=== PATIENT | female | born 1985 | race Asian ===

== ENCOUNTER 2020-03-01 12:18 | Outpatient (REF) | payer OTHER, SELFPAY | END 2020-03-01 12:19 | disposition home or self-care (01) | LOC: HO.LAB 12:18 | PROVIDERS: PCP Hospitalist; Visit Provider Internal Medicine | DX: Z20.828 Contact with and (suspected) exposure to other viral communicable diseases (principal) | CPT/HCPCS: 36415; C9803; U0003 ==

== ENCOUNTER 2020-03-09 07:50 | Outpatient (RCR) | payer OTHER, SELFPAY | END 2020-03-23 09:13 | disposition other institution (70) | LOC: HO.PTWFD 07:50 | PROVIDERS: Visit Provider Family Medicine | DX: M25.571 Pain in right ankle and joints of right foot (principal) | CPT/HCPCS: 97110; 97140; 97161 ==

== ENCOUNTER 2021-03-14 14:10 | Outpatient (REF) | payer OTHER, SELFPAY | END 2021-03-14 14:11 | disposition home or self-care (01) | LOC: HO.LNP 14:10 | PROVIDERS: Visit Provider Hospitalist | DX: J06.9 Acute upper respiratory infection, unspecified (principal); Z20.822 Contact with and (suspected) exposure to COVID-19 | CPT/HCPCS: U0003; U0005 ==

== ENCOUNTER 2021-08-08 13:23 | Outpatient (REF) | payer OTHER, SELFPAY ==
[2021-08-08 14:42] LABS: Influenza A PCR NEGATIVE (Negative); Influenza B PCR NEGATIVE (Negative); Resp Syncy Virus RNA Qual PCR NEGATIVE (Negative); SARS COV2 PCR INHOUSE NEGATIVE (Negative)
== END 2021-08-08 13:24 | disposition home or self-care (01) ==
LOC: HO.LNP 13:23
PROVIDERS: Visit Provider Family Medicine
DX: Z20.822 Contact with and (suspected) exposure to COVID-19 (principal); B34.9 Viral infection, unspecified
CPT/HCPCS: 0241U

== ENCOUNTER 2022-10-17 08:58 | Outpatient (AMB) | payer OTHER, SELFPAY ==
--- NOTE | 2022-10-17 09:09 | MHC.OFFWIV ---
Intake Vital Signs 10/17/22 09:10 Height 4 ft 10.5 in Weight 134 lb 6 oz BMI 27.6 BP 112/68 Blood Pressure Location Rt brachial Position Sitting Pulse 66 Pulse Source Pulse Oximeter Pulse Oximetry (%) 99 Oxygen Delivery Method Room Air Intake Visit Reasons: R leg pain Intake Note: Patient is here with right ankle pain for 10 days, with no known injury. Patient Tobacco Use Status: Never used Tobacco Allergies Seasonal Allergies Allergy (Intermediate, Verified 10/17/22 09:14) Congestion Do you need a note to return to daycare/school/sports/work: Yes HPI R leg pain HPI Details 36 y/o female presents with complaints of R ankle pain. She reports hx of R ankle tendonitis and states weather affects this. PFSH Surgical History History of tubal ligation Family History Father Medical history unknown Mother Alive and well Maternal Grandmother Lung cancer Social History Housing: House Patient Tobacco Use Status: Never used Tobacco e-Cigarette/Vaping Use: Never Used service: No 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al status: employed 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al exposures/hazards: No Cognitive needs: No Hearing needs: No Vision needs: No Physical Exam Vital Signs: Last Vital Signs Pulse 66 10/17/22 09:10 BP 112/68 10/17/22 09:10 Pulse Ox 99 10/17/22 09:10 Oxygen Delivery Method Room Air 10/17/22 09:10 BMI result Body Mass Index 27.6 Assessment & Plan Assessment & Plan (1) Right ankle tendonitis: Code(s): M77.51 - Other enthesopathy of right foot and ankle Plan: Relative rest-will give her some time off from work and she can return on Friday Ice/heat and elevation NSAIDs: Start meloxicam Start physical therapy She can return if not improving or if worsens Orders: Orders PT Evaluation and Treatment Today M77.51 - Other enthesopathy of right foot and ankle Medications: New meloxicam 15 mg PO DAILY 30 tabs 2RF 30 days Discontinued ibuprofen Discontinued Reason: Doctor's Order 800 mg PO Q8H PRN 42 tabs 0RF pain 14 days Coding Level of Care Code Est Pt Level 3 (80408) Diagnoses Right ankle tendonitis M77.51
[2022-10-17 09:10] VITALS: BP 112/68; PULSE 66; O2SAT 99; BMI 27.6
== END 2022-10-17 09:58 | disposition home or self-care (01) ==
PROVIDERS: PCP Hospitalist; Visit Provider Family Medicine
DX: M77.51 Other enthesopathy of right foot and ankle (principal)
CPT/HCPCS: 99213

== ENCOUNTER 2023-06-19 08:58 | Outpatient (AMB) | payer OTHER, SELFPAY ==
[2023-06-19 09:05] VITALS: BP 102/58; TEMP 36.9; O2SAT 99; BMI 28.0
--- NOTE | 2023-06-19 09:05 | AM.OFFWIN_ITS ---
Intake Vital Signs 06/19/23 09:05 Height 4 ft 10 in Weight 134 lb BMI 28.0 BP 102/58 L Blood Pressure Location Lt brachial Position Sitting Pulse Source Pulse Oximeter Temp 98.4 F Temp Source Temporal Artery Scan Pulse Oximetry (%) 99 Oxygen Delivery Method Room Air Intake Visit Reasons: headache,vomiting Patient Tobacco Use Status: Never used Tobacco Allergies Seasonal Allergies Allergy (Intermediate, Verified 06/19/23 09:07) Congestion Medication List - Last Reconciled 06/19/23 by Franci Hutson, [facility]- cetirizine (Zyrtec) 10 mg PO DAILY 30 days fluticasone propionate 50 mcg/actuation (Allergy Relief (fluticasone)) 2 sprays intranasal DAILY 1 month meloxicam 15 mg PO DAILY 30 days HPI HPI Comments History of Present Illness Details Here today with c/o GI upset started on Friday with Diarrhea, nonbloody Tried bland diet and felt ok. Yesterday felt quesy. Feels dehydrated d/t poor intake. Decreased urine output Drank electrolyte drinks. Was able to get to work yesterday. On the way, felt like she was going to throw up. She went home. When she got home, she did start vomiting several times. Now having body aches & headache. Nasal congestion, post nasal drip and chest congestion. Denies fever, chills, abd pain, chance of preg. [facility] Surgical History History of tubal ligation Family History Father Medical history unknown Mother Alive and well Maternal Grandmother Lung cancer Social History Housing: House Patient Tobacco Use Status: Never used Tobacco e-Cigarette/Vaping Use: Never Used service: No 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al status: employed 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al exposures/hazards: No Cognitive needs: No Hearing needs: No Vision needs: No Review of Systems Const All systems reviewed & are unremarkable except as noted in HPI and below Physical Exam Vital Signs: Last Vital Signs Temp 98.4 F 06/19/23 09:05 BP 102/58 L 06/19/23 09:05 Pulse Ox 99 06/19/23 09:05 Oxygen Delivery Method Room Air 06/19/23 09:05 BMI result Body Mass Index 28.0 Const Other: Awake alert NAD Sclera and conjunctiva clear bilat TM intact and clear bilat MMM, pharynx WNL RRR LS CTAB Abd soft, nontender, normoactive BS x 4 Assessment & Plan Assessment & Plan (1) Viral gastroenteritis: Comment: Supportive care offered Edu on reasons to seek addl care Code(s): A08.4 - Viral intestinal infection, unspecified Plan: This note is constructed using voice recognition software. While every effort has been made to ensure accuracy in hops farm[employer], still errors may have been included Sometimes, these errors may affect the content or meaning of the given sentence . Medications: New ondansetron HCl 4 mg PO Q8H PRN 15 tabs 0RF nausea and vomiting 3 days Coding Level of Care Code Est Pt Level 3 (99249) Diagnoses Viral gastroenteritis A08.4
== END 2023-06-19 09:34 | disposition home or self-care (01) ==
PROVIDERS: PCP Hospitalist; Visit Provider Nurse Practitioner Family
DX: A08.4 Viral intestinal infection, unspecified (principal)
CPT/HCPCS: 99213

== ENCOUNTER 2023-07-16 08:25 | Outpatient (AMB) | payer OTHER, SELFPAY ==
[2023-07-16 08:49] VITALS: BP 106/67; PULSE 64; RESP 14; TEMP 36.4; O2SAT 99; BMI 27.7
--- NOTE | 2023-07-16 08:49 | A.OFFPC_ITS ---
Vital Signs 07/16/23 08:49 Height 4 ft 10 in Weight 132 lb 6 oz BMI 27.7 BP 106/67 Blood Pressure Location Rt brachial Position Sitting Respiration 14 Pulse 64 Pulse Source Pulse Oximeter Temp 97.5 F Temp Source Temporal Artery Scan Pulse Oximetry (%) 99 Oxygen Delivery Method Room Air Intake Visit Reasons: PAUL from [facility] [employer] Required: No Accompanied by: Self / Same As Patient Allergies Seasonal Allergies Allergy (Intermediate, Verified 07/16/23 09:36) Congestion Medication List - Last Reconciled 07/16/23 by Franci Hutson, [facility] fluticasone propionate 50 mcg/actuation (Allergy Relief (fluticasone)) 2 sprays intranasal DAILY 1 month Tobacco use date assessed: 07/16/23 Dental Screening Dental Screen Date: 07/16/23 Did you have a dental visit in the last 12 months?: No Did you have a dental problem in the last 6 months where you did not have access to dental care?: No Was dental information given to patient?: Patient has dentist HPI HPI Comments History of Present Illness Details 37-year-old female with migraine headach es, obesity, seasonal allergies Status post tubal ligation 2014 Family hx: Denies significant hx in first degree relatives. Social: works for the [employer] overdue, we will schedule. 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 Annual visits. Labs 11/22/2019 normal CBC, ESR, CMP Here today for complete physical exam. Migraines, seem to be food triggered. Avoids this. Last one was yesterday. Uses motrin and execedrin. GERD also food related, also avoids. Uses pepcid OTC with + effect PRN. Seasonal allergies - well controlled with flonase. Skin - no concerns. Looking to continue fostering 2 eldest children half brother, age 15, Abilio. Paperwork for this was completed today in handed back to the patient. COUNTS INCLUDE 234 BEDS AT THE [facility] Medical History Right ankle tendonitis Back pain Cervicalgia Surgical History History of tubal ligation Family History Father Medical history unknown Mother Alive and well Maternal Grandmother Lung cancer Social History (Updated 07/16/23 @ 08:57 by DORINDA Murcia) Household Members: Family Housing: House Are you a primary care partner to a significant other at home: No Do you presently have visiting nurse or other home services: No Alcohol intake: current Alcohol intake frequency: holidays/special occasions only Alcohol type: hard liquor Patient Tobacco Use Status: Never used Tobacco e-Cigarette/Vaping Use: Never Used service: No 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al status: employed 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: [employer] 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al exposures/hazards: No Cognitive needs: No Hearing needs: No Vision needs: No Questionnaire PHQ-9 Over the last 2 weeks, how often have you been bothered by any of the following problems? 1. Little interest or pleasure in doing things: not at all 2. Feeling down, depressed, or hopeless: not at all 3. Trouble falling or staying asleep, or sleeping too much: not at all 4. Feeling tired or having little energy: not at all 5. Poor appetite or overeating: not at all 6. Feeling bad about yourself - or that you are a failure or have let yourself or your family down: not at all 7. Trouble concentrating on things, such as reading the newspaper or watching television: not at all 8. Moving or speaking so slowly that other people could have noticed. Or the opposite - being so fidgety or restless that you have been moving around a lot more than usual: not at all 9. Thoughts that you would be better off or of hurting yourself in some way: not at all Total score: 0 Depression Screening Interpretation: Negative Depression Screening Done: Yes 40977 - PHQ-9 Billing: Yes Source: Developed by Drs. Fernando Blackmon, Rosalina Galvan, Maurizio Gramajo and colleagues, with an educational alexandru from [employer]. Thrive Questionnaire Date Thrive assessed: 07/16/23 I am a: Patient What is your living situation today?: I have a steady place to live Within the past 12 months, did the food you bought not last and you didn't have the money to get more?: Never true Within the past 12 months, did you worry whether your food would run out before you got money to buy more?: Never true Do you have trouble paying for medicines?: No Do you have trouble getting transportation to medical appointments?: No Do you have trouble paying your heating and electricity bill?: No Do you have trouble taking care of your child, family member or friend?: No Do you have trouble with day-to-day activities such as bathing, preparing meals, shopping, managing finances, etc.?: No Are you currently unemployed and looking for a job?: No Are you interested in more education?: No Please select the resources that you would like help with: None Currently or been in a relationship where the following occur: no concerns reported THRIVE Score: 0 AUDIT C Alcohol Use Questionnaire (AUDIT-C) 1. How often do you have a drink containing alcohol?: Monthly or less 2. How many drinks containing alcohol do you have on a typical day when you are drinking?: 1 or 2 3. How often do you have six or more drinks on one occasion?: Never Total Score: 1 Score Reviewed/Action Taken: Yes AMBROSIO-7 AMB Questionnaire AMBROSIO-7 Date AMBROSIO - 7 assessed: 07/16/23 Feeling nervous, anxious, or on edge: 0 = Not at all Not being able to stop or control worryin = Not at all Worrying too much about different things: 0 = Not at all Trouble relaxin = Not at all Being so restless that it is hard to sit still: 0 = Not at all Becoming easily annoyed or irritable: 0 = Not at all Feeling afraid as if something awful might happen: 0 = Not at all Total AMBROSIO-7 score (0-4 normal; 5-9 mild; 10-14 moderate; 15-21 severe): 0 Source: Developed by Drs. Fernando Blackmon, Rosalina Galvan, Maurizio Gramajo and colleagues, with an educational alexandru from [employer]. AMBROSIO-7 Assessment Billing AMBROSIO-7 Assessment Tool: AMBROSIO-7 Assessment 98152 Review of Systems Const Details: Constitutional: Denies fever. Skin: Denies rash. Eye: Denies eye pain. ENMT: Denies sore throat and nasal congestion. Respiratory: Denies shortness of breath and cough. Gastrointestinal: Denies nausea, vomiting or abdominal pain. Cardiovascular: Denies chest pain and syncope. Genitourinary: Denies dysuria. Musculoskeletal: Denies back pain and extremity pain. Neurologic: Denies headaches, confusion, and weakness. Psychiatric: Denies suicidal thoughts and substance abuse. Allergy/ Immunologic: Denies impaired immunity. Physical exam (Primary Care) Vital Signs: Last Vital Signs Temp 97.5 F 07/16/23 08:49 Pulse 64 07/16/23 08:49 Resp 14 07/16/23 08:49 BP 106/67 07/16/23 08:49 Pulse Ox 99 07/16/23 08:49 Oxygen Delivery Method Room Air 07/16/23 08:49 BMI result Body Mass Index 27.7 BMI Assessment/Plan discussion: High BMI High, discussed plan: lifestyle Tobacco/Smoking Status: Tobacco use Status Tobacco use date assessed 07/16/23 07/16/23 08:58 Patient Tobacco Use Status Never used Tobacco 07/16/23 08:58 e-Cigarette/Vaping Use Never Used 07/16/23 08:58 PHQ-9: PHQ-9 Score PHQ-9: Total score 0 07/16/23 08:58 Depression Screening Interpretation: Negative Thrive Assessment: Date of Thrive Assessment Date Thrive assessed 07/16/23 07/16/23 08:58 Currently or been in a relationship where the following occur: no concerns reported Advance Care Planning discussion: Exists, not on file Date of discussion: 07/16/23 Who was present: Self Forms completed: Health Care Proxy and [facility]OL[facility] Time spent: 1-15 minutes, not on file Actual minutes spent: 3 Const Other: General: Well developed, well nourished, in no acute distress. Appears stated age. Head: Normocephalic, atraumatic. Eyes: Pupils are equal, round and reactive to light and accommodation. Conjunctivae are clear. Vision grossly normal. Ears: TMs clear AU, EACS WNL Nose: Patent, without discharge. Mouth: There are no ulcers or lesions noted. No inflammation, no post nasal drip, no plaques nor exudates. Neck: Supple, no adenopathy or thyromegaly. Lungs: Clear to auscultation bilaterally. No rales, rhonchi or wheeze noted. Good air flow in all pandey. Heart: Regular rate and rhythm. No murmurs, click, rubs or gallops are noted. Abdomen: Bowel sounds present in all quadrants. The abdomen is soft, nontender, with no masses or organomegaly noted. No hernias are noted. Musculoskeletal: Joints are nontender, without swelling, redness, or effusions. Range of motion is observed to be normal. Pulses: Peripheral pulses are equal and palpable bilaterally. Extremities: No clubbing, cyanosis nor edema is noted. Neurologic: Gait and station normal. Cranial Nerves 2-12 intact. Motor strength grossly symmetrical and intact. No sensory loss. Balance normal. Skin: No rashes, ulcers, or lesions noted. Turgor is good. Skin color is good. Hair and nails are without abnormalities. Psych: Normal eye contact, affect and mood appropriate, and normal interactions. Patient is alert and appropriate to context. Extremities: No clubbing, cyanosis or edema. Assessment and Plan Assessment & Plan (1) Encounter for general adult medical examination without abnormal findings: Code(s): Z00.00 - Encounter for general adult medical examination without abnormal findings (2) Laboratory exam ordered as part of routine general medical examination: Code(s): Z00.00 - Encounter for general adult medical examination without abnormal findings (3) Migraine: Comment: We will controlled with use of ibuprofen 800 mg and Excedrin migraine. Continue to avoid triggers. Code(s): G43.909 - Migraine, unspecified, not intractable, without status migrainosus Qualifiers: Migraine type: without aura Status migrainosus presence: without status migrainosus Intractability: not intractable Qualified Code(s): G43.009 - Migraine without aura, not intractable, without status migrainosus (4) BMI 27.0-27.9,adult: Code(s): Z68.27 - Body mass index [BMI] 27.0-27.9, adult (5) Seasonal allergies: Comment: Well controlled with Flonase continue. Code(s): J30.2 - Other seasonal allergic rhinitis (6) GERD (gastroesophageal reflux disease): Comment: Well controlled with p.r.n. use of [id number] Pepcid. Continue avoid food triggers. Code(s): K21.9 - Gastro-esophageal reflux disease without esophagitis Qualifiers: Esophagitis presence: without esophagitis Qualified Code(s): K21.9 - Gastro-esophageal reflux disease without esophagitis Orders: Orders Complete Blood Count no Diff Today Z00.00 - Encounter for general adult medical examination without abnormal findings Hemoglobin A1c Today Z00.00 - Encounter for general adult medical examination without abnormal findings IRON PROFILE Today Z00.00 - Encounter for general adult medical examination without abnormal findings TSH reflex Free T4 Today Z00.00 - Encounter for general adult medical examination without abnormal findings Comprehensive Gipsy. Panel Fast Today Z00.00 - Encounter for general adult medical examination without abnormal findings Lipid Panel Today Z00.00 - Encounter for general adult medical examination without abnormal findings Microalbumin, Random (w Creat) Today Z00.00 - Encounter for general adult medical examination without abnormal findings Vitamin D 1,25 dihydroxy Today Z00.00 - Encounter for general adult medical examination without abnormal findings Vitamin B12 Today Z00.00 - Encounter for general adult medical examination without abnormal findings Medications: New ibuprofen 800 mg PO Q8H PRN 30 tabs 1RF pain Patient Instructions: Return to the office in 1 year for complete physical exam, sooner as needed. Health screenings for women You should visit your health care provider from time to time, even if you are healthy. The purpose of these visits is to: Screen for medical issues Assess your risk for future medical problems Encourage a healthy lifestyle Update vaccinations and other preventive care services Help you get to know your provider in case of an illness Information Even if you feel fine, you should still see your provider for regular checkups. These visits can help you avoid problems in the future. For example, the only way to find out if you have high blood pressure is to have it checked regularly. High blood sugar and high cholesterol levels also may not have any symptoms in the early stages. A simple blood test can check for these conditions. There are specific times when you should see your provider or receive specific health screenings. The [place] Preventive Services Task Force publishes a list of recommended screenings. Below are screening guidelines for women ages 18 to 39. BLOOD PRESSURE SCREENING Your blood pressure should be checked at least once every 3 to 5 years if: Your blood pressure is in the normal range (top number less than 120 mm Hg and bottom number less than 80 mm Hg) You don't have risk factors for high blood pressure Ask your provider if you need your blood pressure checked more often if: The top number is 120 to 129 mm Hg or the bottom number is 70 to 79 mm Hg You have diabetes, heart disease, kidney problems, are overweight, or have certain other health conditions You have a first-degree relative with high blood pressure You are Black You had high blood pressure during a If the top number is 130 mm Hg or greater or the bottom number is 80 mm Hg or greater, this is considered stage 1 hypertension. Schedule an appointment with your provider to learn how you can reduce your blood pressure. Watch for blood pressure screenings in your area. Ask your provider if you can stop in to have your blood pressure checked. BREAST CANCER SCREENING Experts do not agree about the benefits of breast self-exams in finding breast cancer or saving lives. Talk to your provider about what is best for you. A screening mammogram is not recommended for most women under age 40. Your provider may discuss and recommend mammograms, MRI scans, or ultrasounds if you have an increased risk for breast cancer, such as: A mother or sister who had breast cancer at a young age (most often starting screening earlier than the age the close relative was diagnosed) You carry a high-risk genetic marker CERVICAL CANCER SCREENING Cervical cancer screening should start at age 21 years unless your provider advises otherwise. After the first test: Women ages 21 through 29 should have a Pap test every 3 years. Exoprts do not agree on whether HPV testing is recommended for this age group. Women ages 30 through 65 should be screened with either a Pap test every 3 years or the HPV test every 5 years or both tests every 5 years (called cotesting ). Women who have been treated for precancer (cervical dysplasia) should continue to have Pap tests for 20 years after treatment or until age 65, whichever is longer. If you have had your uterus and cervix removed (total hysterectomy), and you have not been diagnosed with cervical cancer or precancer (high grade cervical neoplasia), you do not need cervical cancer screening. CHOLESTEROL SCREENING Cholesterol screening should begin at: Age 45 for women with no known risk factors for coronary heart disease Age 20 for women with known risk factors for coronary heart disease Repeat cholesterol screening should take place: Every 5 years for women with normal cholesterol levels More often if changes occur in lifestyle (including weight gain and diet) More often if you have diabetes, heart disease, kidney problems, or certain other conditions DIABETES SCREENING You should be screened for diabetes starting at age 35 and then repeated every 3 years if you have no risk factors for diabetes. Screening may need to start earlier and be repeated more often if you have other risk factors for diabetes, such as: You have a first degree relative with diabetes. You are overweight or have obesity. You have high blood pressure, prediabetes, or a history of heart disease. Screening for diabetes should be done if you are planning to become and you are overweight and have other risk factors such as high blood pressure. DENTAL EXAM Go to the dentist once or twice every year for an exam and cleaning. Your dentist will evaluate if you need more frequent visits. EYE EXAM Have an eye exam every 5 to 10 years before age 40. If you have vision problems, have an eye exam every 2 years or more often if recommended by your provider. You should have an eye exam that includes an examination of your retina (back of your eye) at least every year if you have diabetes. IMMUNIZATIONS Commonly needed vaccines include: Flu shot: get one every year. COVID-19 vaccine: ask your provider what is best for you. Tetanus-diphtheria and acellular pertussis (Tdap) vaccine: have one at or after age 19 as one of your tetanus-diphtheria vaccines if you did not receive it as an adolescent. Tetanus-diphtheria: have a booster (or Tdap) every 10 years. Varicella vaccine: receive 2 doses if you never had chickenpox or the varicella vaccine. Hepatitis B vaccine: receive 2, 3, or 4 doses, depending on your exact circumstances. Measles, mumps, and rubella (MMR) vaccine: receive 1 to 2 doses if you are not already immune to MMR. Your provider can tell you if you are immune. Ask your provider about the human papillomavirus (HPV) vaccine if: You have not received the HPV vaccine in the past You have not completed the full vaccine series (you should catch up on this shot) Ask your provider if you should receive other immunizations if you have certain health problems that increase your risk for some diseases such as pneumonia. INFECTIOUS DISEASE SCREENING Women who are sexually active should be screened for chlamydia and gonorrhea up until age 25. Women 25 years and older should be screened for chlamydia and gonorrhea if at high risk. Screening for hepatitis C: All adults ages 18 to 79 should get a one-time test for hepatitis C. people should be screened at every . Screening for human immunodeficiency virus (HIV): All people ages 15 to 65 should get a one-time test for HIV. Depending on your lifestyle and medical history, you may also need to be screened for infections such as syphilis and HIV, as well as other infections. PHYSICAL EXAM All adults should visit their provider from time to time, even if they are healthy. The purpose of these visits is to: Screen for disease Assess your risk of future medical problems Encourage a healthy lifestyle Update your vaccinations and other preventive care services Maintain a relationship with a provider in case of an illness Your height, weight, and BMI should be checked at every exam. During your exam, your provider may ask you about: Depression and anxiety Diet and exercise Alcohol and tobacco use Safety issues, such as using seat belts, smoke detectors, and intimate partner violence Your medicines and risk for interactions SKIN SELF-EXAM Your provider may check your skin for signs of skin cancer, especially if you're at high risk, such as if you: Have had skin cancer before Have close relatives with skin cancer Have a weakened immune system OTHER SCREENING Talk with your provider about colon cancer screening if you have a strong family history of colon cancer or polyps, or if you have had inflammatory bowel disease or polyps yourself. Routine bone density screening of women under 40 is not recommended. Coding Level of Care Code Est Pt Prev Care 18-39y(90881) Diagnoses Encounter for general adult medical examination without abnormal findings Z00.00 Laboratory exam ordered as part of routine general medical examination Z00.00 Migraine without aura and without status migrainosus, not intractable G43.009 Migraine type: without aura Status migrainosus presence: without status migrainosus Intractability: not intractable BMI 27.0-27.9,adult Z68.27 Seasonal allergies J30.2 Gastroesophageal reflux disease without esophagitis K21.9 Esophagitis presence: without esophagitis Additional Codes AMBROSIO-7 Assessment Billing - AMBROSIO-7 Assessment Tool: AMBROSIO-7 Assessment 04128 ([id number]) Vital Signs *Quality* - Advance Care Planning discussion: Exists, not on file ([id number]) Vital Signs *Quality* - Time spent: 1-15 minutes, not on file ([id number])
== END 2023-07-16 10:07 | disposition home or self-care (01) ==
PROVIDERS: PCP Hospitalist; Visit Provider Nurse Practitioner Family
DX: Z00.00 Encounter for general adult medical examination without abnormal findings (principal); G43.009 Migraine without aura, not intractable, without status migrainosus; Z68.27 Body mass index [BMI] 27.0-27.9, adult; J30.2 Other seasonal allergic rhinitis; K21.9 Gastro-esophageal reflux disease without esophagitis
CPT/HCPCS: 1123F; 1124F; 99395

== ENCOUNTER 2023-07-16 09:53 | Outpatient (REF) | payer OTHER, SELFPAY ==
[2023-07-16 11:24] LABS: Hematocrit 42.3 % (37.0-47.0); Mean Corpuscular HGB Conc 33.1 g/dl (31.0-35.0); Mean Corpuscular Hemoglobin 29.3 pg (27.0-33.0); Mean Corpuscular Volume 88.5 fL (80.0-98.0); Mean Platelet Volume 11.3 fL (9.4-12.3); Platelet Count 295 X10*3/uL (160-400); Red Blood Count 4.78 X10*6/uL (4.20-5.50); Red Cell Distribution Width 13.1 % (11.0-16.0); White Blood Count 6.6 X10*3/uL (4.8-10.8)
[2023-07-16 11:29] LABS: Estimated Average Glucose 94 mg/dL; Hemoglobin A1c % 4.9 % (<6.0)
[2023-07-16 11:41] LABS: Microalbum/Creatinine Ratio Ur 2.9 ug/mg cr (<30)
[2023-07-16 11:43] LABS: Alanine Aminotransferase 19 U/L (0-31); Albumin Level 4.4 g/dL (3.5-5.0); Alkaline Phosphatase 63 U/L (39-117); Anion Gap 12 (12-20); Aspartate Amino Transferase 18 U/L (5-31); Bilirubin Total 0.6 mg/dL (0.0-1.0); Blood Urea Nitrogen 11 mg/dL (9-16); Calcium 9.4 mg/dL (8.4-10.2); Carbon Dioxide 22 mmol/L (22-29); Chloride 108 mmol/L (96-108); Cholesterol 178 mg/dL (<200); Estimated Glomerular Filt Rate > 60; Glucose Fasting 80 mg/dL (60-99); HDL Cholesterol 54 mg/dL (>40); Iron 123 mcg/dL (30-160); LDL Cholesterol Calculated 103 mg/dL (<100); Percent Iron Saturation 41 % (15-50); Potassium 3.9 mmol/L (3.3-5.1); Sodium 138 mmol/L (135-145); Total Iron Binding Capacity 298 mcg/dL (228-428); Total Protein 7.3 g/dL (6.5-8.0); Triglycerides 106 mg/dL (<150); Unsaturated Iron Binding 175 ug/dL
[2023-07-16 11:55] LABS: Vitamin B12 516 pg/mL (200-900)
[2023-07-16 12:03] LABS: TSH reflex Free T4 1.46 uIU/mL (0.32-4.0)
[2023-07-20 06:13] LABS: VITAMIN D (1,25 OH) D3 24 pg/mL; Vit D (1,25-Dihydroxy) Total 24 pg/mL (18-72); Vitamin D (1,25 OH) D2 <8 pg/mL
== END 2023-07-16 09:54 | disposition home or self-care (01) ==
LOC: HO.WFDLDS 09:53
PROVIDERS: Visit Provider Nurse Practitioner Family
DX: Z00.00 Encounter for general adult medical examination without abnormal findings (principal)
CPT/HCPCS: 36415; 80053; 80061; 82043; 82570; 82607; 82652; 83036; 83540; 84443; 85027

== ENCOUNTER 2023-08-22 11:56 | Outpatient (AMB) | payer OTHER, SELFPAY ==
--- NOTE | 2023-08-22 12:03 | AM.OFFWIN_ITS ---
Intake Vital Signs 08/22/23 12:07 Height 4 ft 10 in Weight 135 lb BMI 28.2 BP 102/68 Blood Pressure Location Lt brachial Position Sitting Respiration 12 Pulse 65 Pulse Source Pulse Oximeter Temp 98.4 F Temp Source Oral Pulse Oximetry (%) 98 Oxygen Delivery Method Room Air Intake Visit Reasons: est/ swollen finger left ring finger Intake Note: Swollen left ring finger Patient Tobacco Use Status: Never used Tobacco Allergies Seasonal Allergies Allergy (Intermediate, Verified 08/22/23 12:14) Congestion Medication List - Last Reconciled 08/22/23 by Franci Hutson, [facility] fluticasone propionate 50 mcg/actuation (Allergy Relief (fluticasone)) 2 sprays intranasal DAILY 1 month ibuprofen 800 mg PO Q8H PRN Do you need a note to return to daycare/school/sports/work: Yes Return to daycare/school/sports/work/other note: work HPI HPI Comments History of Present Illness Details Here today w/ swelling of left ring finger assoc w/ pain initially w/o overt or known injury this started yesterday the pain has resolved and now she just has the swelling and discoloration reports normal sensation and movement she did have a hard time removing wedding ring initially and now has remained with it off given the swelling this has never happened before Exam: Left ring finger with mild swelling, dark purple/yellow discoloration, palmar surface and finger tip spared, normal cap refill, normal movement, skin intact, not excessively warm to suggest infection Plan: reassurance. if fever, redness, worsening swelling, discoloration, or overall worsening advised to return to office. [facility] Medical History Right ankle tendonitis Back pain Cervicalgia Surgical History History of tubal ligation Family History Father Medical history unknown Mother Alive and well Maternal Grandmother Lung cancer Social History (Updated 07/16/23 @ 08:57 by DORINDA Murcia) Household Members: Family Both parents involved: No Caregiver staying overnight: No Housing: House Are you a primary md do resident urgent care to a significant other at home: No Do you presently have visiting nurse or other home services: No 75 years or older and lives alone: No Alcohol intake: current Alcohol intake frequency: holidays/special occasions only Alcohol type: hard liquor Patient Tobacco Use Status: Never used Tobacco e-Cigarette/Vaping Use: Never Used service: No 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al status: employed 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: [employer] 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al exposures/hazards: No Cognitive needs: No Hearing needs: No Vision needs: No Physical Exam Vital Signs: Last Vital Signs Temp 98.4 F 08/22/23 12:07 Pulse 65 08/22/23 12:07 Resp 12 08/22/23 12:07 BP 102/68 08/22/23 12:07 Pulse Ox 98 08/22/23 12:07 Oxygen Delivery Method Room Air 08/22/23 12:07 BMI result Body Mass Index 28.2 Assessment & Plan Assessment & Plan (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 Coding Level of Care Code Est Pt Level 3 (55557) Diagnoses Achenbach's syndrome M79.81
[2023-08-22 12:07] VITALS: BP 102/68; PULSE 65; RESP 12; TEMP 36.9; O2SAT 98; BMI 28.2
== END 2023-08-22 12:30 | disposition home or self-care (01) ==
PROVIDERS: PCP Nurse Practitioner Family; Visit Provider Nurse Practitioner Family
DX: M79.81 Nontraumatic hematoma of soft tissue (principal)
CPT/HCPCS: 99213

== ENCOUNTER → 2023-12-10 10:39 | Outpatient (BNVA) | payer OTHER, SELFPAY | PROVIDERS: PCP Nurse Practitioner Family ==

== ENCOUNTER → 2023-12-10 10:39 | Outpatient (AMB) | payer OTHER, SELFPAY ==
--- NOTE | 2023-12-10 10:45 | AM.OFFWIN_ITS ---
Intake Vital Signs 12/10/23 10:46 Height 4 ft 10 in Weight 134 lb BMI 28.0 BP 104/58 L Blood Pressure Location Rt brachial Pulse 78 Pulse Source Pulse Oximeter Temp 98.1 F Temp Source Oral Pulse Oximetry (%) 98 Oxygen Delivery Method Room Air Intake Visit Reasons: est/bad cough/throat pain Patient Tobacco Use Status: Never used Tobacco Allergies Seasonal Allergies Allergy (Intermediate, Verified 12/10/23 10:48) Congestion Medication List - Last Reconciled 12/10/23 by Franci Hutson, NICKER- cetirizine (Zyrtec) 10 mg PO DAILY PRN fluticasone propionate 50 mcg/actuation (Allergy Relief (fluticasone)) 2 sprays intranasal DAILY 1 month ibuprofen 800 mg PO Q8H PRN HPI HPI Comments History of Present Illness Details 38-year-old female with migraine headach es, obesity, seasonal allergies Here today with URI sx that started sx: cough, bodyaches. Cough worse at night. Coughing so hard tastes blood; hoarse voice On Friday, took amox she had on hand for dental procedure for L ear pain Admits mild improvement in sx. Tried ibuprofen w/o relief, aleve did help body aches; has tried several otc cough suppressants w/o relief. Went to walk in no Friday, covid, flu, strep negative. Exam: Awake alert NAD Sclera and conjunctiva clear bilat Nares patent, turbinates within normal limits, no sinus tenderness with palpation bilat TM clear on L, cerumen EAC on L unable to see TM MMM, pharynx WNL RRR LS CTAB, congested cough w/o distress Plan Treat cough. Supportive care. Advised to return to the office if she develops a fever, worsening of symptoms or no improvement after 10 days. This note is constructed using voice recognition software. While every effort has been made to ensure accuracy in amusement park worker, still errors may have been included Sometimes, these errors may affect the content or meaning of the given sentence . Total time spent caring for the patient today was 30 minutes. This includes time spent before the visit reviewing the chart, time spent during the visit, and time spent after the visit on documentation [facility] Medical History Right ankle tendonitis Back pain Cervicalgia Surgical History History of tubal ligation Family History Father Medical history unknown Mother Alive and well Maternal Grandmother Lung cancer Social History (Updated 07/16/23 @ 08:57 by DORINDA Murcia) Household Members: Family Both parents involved: No Caregiver staying overnight: No Housing: House Are you a primary adult caregiver to a significant other at home: No Do you presently have visiting nurse or other home services: No 75 years or older and lives alone: No Alcohol intake: current Alcohol intake frequency: holidays/special occasions only Alcohol type: hard liquor Patient Tobacco Use Status: Never used Tobacco e-Cigarette/Vaping Use: Never Used service: No 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al status: employed 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 Plan . Medications: New benzonatate 100 mg PO TID 10 days PRN 30 caps 1RF cough codeine-guaifenesin 10-200 mg/5 mL 10 mL PO BEDTIME PRN 70 mL 0RF cough Refilled fluticasone propionate 50 mcg/actuation (Allergy Relief (fluticasone)) administer into each nostril 2 sprays intranasal DAILY 1 month 16 grams 4RF J30.2 - Other seasonal allergic rhinitis Coding Level of Care Code Est Pt Level 4 (77586) Diagnoses URI with cough and congestion J06.9
[2023-12-10 10:46] VITALS: BP 104/58; PULSE 78; TEMP 36.7; O2SAT 98; BMI 28.0
== END ==
PROVIDERS: PCP Nurse Practitioner Family; Visit Provider Nurse Practitioner Family
DX: J06.9 Acute upper respiratory infection, unspecified (principal)

== ENCOUNTER 2023-12-29 09:18 | Outpatient (REF) | payer OTHER, SELFPAY ==
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
== END 2023-12-29 09:19 | disposition home or self-care (01) ==
LOC: HO.HMGCX 09:18
PROVIDERS: PCP Nurse Practitioner Family; Visit Provider Nurse Practitioner Family
DX: M54.50 Low back pain, unspecified (principal); M54.2 Cervicalgia; R20.2 Paresthesia of skin; M25.552 Pain in left hip; V89.2XXA Person injured in unspecified motor-vehicle accident, traffic, initial encounter
CPT/HCPCS: 72040; 72100; 73030; 73521

== ENCOUNTER 2023-12-29 09:18 | Outpatient (AMB) | payer OTHER, SELFPAY ==
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
[2023-12-29 09:37] VITALS: BP 98/68; PULSE 78; RESP 12; TEMP 36.6; O2SAT 99; BMI 28.5
== END 2023-12-29 10:13 | disposition home or self-care (01) ==
PROVIDERS: PCP Nurse Practitioner Family; Visit Provider Nurse Practitioner Family
DX: M54.2 Cervicalgia (principal); V89.2XXA Person injured in unspecified motor-vehicle accident, traffic, initial encounter; Z04.3 Encounter for examination and observation following other accident; M54.50 Low back pain, unspecified; R20.2 Paresthesia of skin; M25.552 Pain in left hip

== ENCOUNTER 2024-01-14 10:00 | Outpatient (AMB) | payer OTHER, SELFPAY ==
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
[2024-01-14 10:28] VITALS: BP 102/60; PULSE 70; O2SAT 99; BMI 28.7
== END 2024-01-14 13:55 | disposition home or self-care (01) ==
PROVIDERS: PCP Nurse Practitioner Family; Visit Provider Nurse Practitioner Family
DX: M54.2 Cervicalgia (principal); M54.50 Low back pain, unspecified; V89.2XXA Person injured in unspecified motor-vehicle accident, traffic, initial encounter; R20.2 Paresthesia of skin

== ENCOUNTER → 2024-01-14 10:00 | Outpatient (BNVA) | payer OTHER, SELFPAY | PROVIDERS: PCP Nurse Practitioner Family; Visit Provider Nurse Practitioner Family ==

== ENCOUNTER → 2024-03-24 09:44 | Outpatient (AMB) | payer OTHER, SELFPAY ==
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
[2024-03-24 09:49] VITALS: BP 101/70; PULSE 53; RESP 12; TEMP 36.2; O2SAT 99; BMI 29.0
--- OUTSIDE RECORDS SUMMARY | 2024-03-24 11:23 | XMS_ITS | Encounter Summary ---
Author Organization [employer] Address [address] [place] [address] Care Team Providers Care Strip Feeder Name Role Phone Unavailable Primary Care Provider Unavailabl e Encounter Details Date Type Department Care Team (Late st Contact Info) Description 02/23/2024 Telephone [facility] ADULT DENTAL [address], [place] [id number] Greg Araiza [address] [place] [address] Social History Tobacco Use Types Packs/Day Years Used Date Smoking Tobacco: Never Passive Smoke Exposure: Never Smokeless Tobacco: Never Comments Unknown Sex and Gender Information Value Date Recorded Sex Assigned at Female 12/24/2021 10:18 AM EDT Legal Sex Female 10:18 AM EDT Gender Identity Female 12/24/2021 10:18 AM EDT Sexual Orientation Straight 12/24/2021 10 :18 AM EDT documented as of this encounter Miscellaneous Notes * Telephone Encounter - Albina Burrell - 02/23/2024 9:49 AM EST LVM is patient is still interested in continue treatment for RCT documented in this encounter Plan of Treatment Not on file documented as of this encounter Visit Diagnoses Not on filedocumented in this encounter
--- OUTSIDE RECORDS SUMMARY | 2024-03-24 11:23 | XMS_ITS | Encounter Summary ---
Author Organization [employer] [facility] Address [address] [place] [address] Care Team Providers Care Metal Crafts Teacher Name Role Phone Unavailable Primary Care Provider Unavailabl e Encounter Details Date Type Department Care Team (Latest Contact Info) Description 05/01/2018 Abstract C CONVERSIONS Dental, Provider, DDS Social History Tobacco Use Types Packs/Day Years Used Date Smoking Tobacco: Never Assessed Comments Unknown Sex and Gender Information Value Date Recorded Sex Assigned at Female 12/24/2021 10:18 AM EDT Legal Sex Female 10:18 AM EDT Gender Identity Female 12/24/2021 10:18 AM EDT Sexual Orientation Straight 12/24/2021 10 :18 AM EDT documented as of this encounter Plan of Treatment Not on file documented as of this encounter Visit Diagnoses Not on filedocumented in this encounter
--- OUTSIDE RECORDS SUMMARY | 2024-03-24 11:23 | XMS_ITS | Clinical Summary ---
Author Organization [email or web address] Address [address] [place] [address] Care Team Providers Care Hospice Home Health Aide Name Role Phone Unavailable Primary Care Provider Unavailabl e Allergies No known active allergies Medications fluticasone (Flonase) 50 MCG/ACT nasal spray USE 1 SPRAY IN EACH NOSTRILS TWICE A DAY NEEDED Active ibuprofen 800 MG tablet 10/03/2023 Active Encounters Date Type Department Care Team Description 03/23/2024 Telephone [facility] ADULT DENTAL [address] [place] [address] Go Roth 02/23/2024 Telephone [facility] ADULT DENTAL [address] [place] [address] Greg Araiza from Last 3 Months Immunizations Name Administration Dates Next Due Pfizer Covid-19 Vaccine 12+ Bivalent 04/19/2022 Social History Tobacco Use Types Packs/Day Years Used Date Smoking Tobacco: Never Passive Smoke Exposure: Never Smokeless Tobacco: Never Tobacco Cessation:Counseling Given: Not Answered Comments Unknown Sex and Gender Information Value Date Recorded Sex Assigned at Female 12/24/2021 10:18 AM EDT Legal Sex Female 10:18 AM EDT Gender Identity Female 12/24/2021 10:18 AM EDT Sexual Orientation Straight 12/24/2021 10 :18 AM EDT Last Filed Vital Signs Vital Sign Reading Time Taken Comments Blood Pressure 122/64 10/06/2023 10:05 AM EDT Pulse 65 10/06/2023 10:05 AM EDT Temperature - - Respiratory Rate - - Oxygen Saturation - - Inhaled Oxygen Concentration - - Weight - - Height - - Body Mass Index - - Plan of Treatment Health Maintenance Due Date Last Done Comments Depression Screening 1985 HIV Screening 1985 SDOH Screening 1985 Alcohol/Substance Use Screening 1997 Family Planning (PISQ) 2000 Hepatitis C Screening 11/22/2003 Hepatitis B Vaccines (1 of 3 - 19+ 3-dose series) 2004 Pap Smear 2006 Cervical Cancer Screening 11/22/2015 HPV/Cotest 11/22/2015 COVID-19 Vaccine (2 - 2023-2 5 season) 2023 04/19/2022 Influenza Vaccine (#1) 2023 Dental Oral Exam 04/08/2024 10/06/2023, 05/01/2018 Dental Prophylaxis 04/08/2024 10/06/2023, 05/01/2018 Tobacco Screening 10/05/2024 10/06/2023 Dental X-Ray: Bitewings 10/06/2024 10/06/19 24, 05/15/2021, 05/01/2018 Dental X-Ray: Full Mouth 10/06/2026 024, 05/01/2018 DTaP/Tdap/Td Vaccines (3 - T d or Tdap) 05/17/2027 05/16/2017, 02/07/2015 Zoster Vaccines (1 of 2) 11/22/2035 RSV Patients and Patients Aged 60 years or older (1 - 1-dose 75+ series) 2060 HIB Vaccines Aged Out No longer eligi ble based on patient's age to complete this topic HPV Vaccines Aged Out No longer eligi ble based on patient's age to complete this topic Hepatitis A Vaccines Aged Out No long er eligible based on patient's age to complete this topic IPV Vaccines Aged Out No longer eligi ble based on patient's age to complete this topic Meningococcal Vaccine Aged Out No esther delphine eligible based on patient's age to complete this topic Pneumococcal Vaccine: Pediatrics (0 to 5 Years) and At-Risk Patients (6 to 49) Years) Aged Out No longer eligible b ased on patient's age to complete this topic RSV under 20 months Aged Out No longe r eligible based on patient's age to complete this topic Rotavirus Vaccines Aged Out No longer eligible based on patient's age to complete this topic Procedures Procedure Name Priority Date/Time Associated Diagnosis Comments PROPHYLAXIS - ADULT Routine 10/06/2023 1 0:00 AM EDT DIAGNOSTIC - DIAGNOSTIC IMAGING - INTRAORAL - COMPREHENSIVE SERIES OF RADIOGRAPHIC IMAGES Routine 10/06/2023 10:00 AM EDT PERIODIC ORAL EVALUATION - ESTABLISHED PATIENT Routine 10/06/2023 10:00 AM EDT from Last 3 Months or Most Recently Relevant to Health Maintenance Insurance [facility]
--- OUTSIDE RECORDS SUMMARY | 2024-03-24 11:23 | XMS_ITS | Clinical Summary ---
Author Organization [employer] [facility] Address [address] [place] [address] Care Team Providers Care Executive Chairman Name Role Phone Elly Jean MD Primary Care Provider Family History Medical History Relation Name Comments Autoimmune disease Neg Hx Breast cancer Neg Hx Colon cancer Neg Hx Coronary artery disease Neg Hx Diabetes Neg Hx Heart attack Neg Hx Heart failure Neg Hx Hyperlipidemia Neg Hx Hypertension Neg Hx Mental illness Neg Hx Prostate cancer Neg Hx Sleep apnea Neg Hx Thyroid disease Neg Hx Social History Tobacco Use Types Packs/Day Years Used Date Smoking Tobacco: Never Alcohol Use Standard Drinks/Week Comments Not Asked 0 (1 standard drink = 0.6 oz pur e alcohol) Sex and Gender Information Value Date Recorded Sex Assigned at Not on file Gender Identity Not on file Sexual Orientation Not on file Obstetrics History Plan of Treatment Health Maintenance Due Date Last Done Comments DTaP,Tdap,and Td Vaccines (1 - Tdap) 2004 Hepatitis B Vaccines (1 of 3 - 19+ 3-dose series) 2004 Cervical Cancer Screening: P ap Smear 2006 COVID-19 Vaccine (2023-2 5 season) 2023 Influenza Vaccine (#1) 2023 HIB Vaccines Aged Out No longer eligi [...] on patient's age to complete this topic MMR Vaccines Aged Out No longer eligi ble based on patient's age to complete this topic Meningococcal ACWY Vaccine Aged Out N o longer eligible based on patient's age to complete this topic Pneumococcal Vaccine: Pediat rics (0 to 5 Years) and At-Risk Patients (6 to 64 Years) Aged Out No longer eligible b ased on patient's age to complete this topic RSV Immunization Patients Un jerrod 20 months Aged Out No longer eligible b ased on patient's age to complete this topic Varicella Vaccines Aged Out No longer eligible based on patient's age to complete this topic Care Teams Executive Chairman Relationship Specialty Start Date End Date Elly Jean MD [address] [place] [address] PCP - General Internal Medicine 03/28/16
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
== END ==
PROVIDERS: PCP Nurse Practitioner Family; Visit Provider Nurse Practitioner Family
DX: M25.511 Pain in right shoulder (principal); V89.2XXA Person injured in unspecified motor-vehicle accident, traffic, initial encounter; M54.2 Cervicalgia

== ENCOUNTER 2024-03-28 13:00 | Emergency (ER) | payer OTHER, SELFPAY ==
--- NOTE | ~2024-03-28 | CT_ITS ---
CLINICAL HISTORY: ?radial head fx on xr, pain s p fall onto elbow Examination: Noncontrast CT of the left elbow Indication: Question of fracture on radiograph Comparison: Same day radiograph Findings: There is a minimally displaced fracture involving the coronoid process of the ulna with a very small joint effusion. The radial head and neck are intact. The distal humerus is also intact. Impression: Minimally displaced fracture involving the coronoid process of the ulna with a very small joint effusion. This document has been electronically signed by: Andrew Walker MD on 03/28/2024 15:53:34
--- NOTE | ~2024-03-28 | XR_ITS ---
CLINICAL HISTORY: fall 3 view left elbow Comparison: None Findings: On the lateral view, there is a faint linear lucency projecting over the radial head and coronoid. No joint effusion. No radiopaque foreign body. IMPRESSION: On the lateral view, there is a faint linear lucency projecting of the radial head and coronoid not seen on other views. Suspect this is artifactual in nature however if there is ongoing discomfort, repeat imaging could be considered. The lack of joint effusion argues against fracture. This document has been electronically signed by: Andrew Walker MD on 03/28/2024 14:45:49
[2024-03-28 13:13] VITALS: BP 143/98; PULSE 77; RESP 16; TEMP 36.4; O2SAT 100; BMI 29.2
--- NOTE | 2024-03-28 13:18 | ED.GENADULT ---
HPI - General Adult General Chief complaint: Fall Stated complaint: fall Time Seen by Provider: 03/28/24 14:31 Source: patient Mode of arrival: ambulatory Limitations: no limitations History of Present Illness ED Provider: VELMA GAYTAN PA-C HPI narrative: 38 year old female with pmhx significant for GERD presents to the ED today for evaluation of left elbow pain s/p slip and fall approx 2.5 hours ago. She reports walking out to her chicken coop when she slipped on black ice, falling backward onto her left elbow. Denies head strike or LOC. Not on thinners. Reports immediate pain to her left elbow. No pain to wrist or shoulder. No ualu-zei-mksgjgl analgesics prior to arrival in ED. no history of surgery on her elbow. Denies numbness/tingling/weakness of the left upper extremity. Related Data Previous Rx's ?Medication ?Instructions ?Recorded cetirizine 10 mg tablet (Zyrtec) 10 mg PO DAILY PRN allergy 12/25/23 symptoms #90 tabs gabapentin 100 mg capsule 100 mg PO TID PRN pain 7 days #21 01/14/24 caps ibuprofen 800 mg tablet 800 mg PO Q8H PRN pain #30 tabs 01/14/24 fluticasone propionate 50 See Rx Instructions .Route 03/22/24 mcg/actuation nasal .COMPLEX #48 mL spray,suspension morphine 15 mg immediate release 15 mg PO Q8H PRN pain (scale score 03/28/24 tablet 7-10) #9 tabs Allergies Allergy/AdvReac Type Severity Reaction Status Date / Time Seasonal Allergies Allergy Intermediate Congestion Verified 03/28/24 13:17 Review of Systems Review of Systems: Constitutional: No fever, chills, fatigue, night sweats, weight changes ENT/Mouth: No ear pain, hearing loss, nasal congestion, sinus pain, rhinorrhea, sore throat Eyes: No eye pain, swelling, redness, vision changes, discharge Cardio: No chest pain, palpitations, FLORES, orthopnea, peripheral edema Pulm: No SOB, cough, sputum, wheezing, dyspnea, hemoptysis GI: No nausea, vomiting, hematemesis, abdominal pain, diarrhea, constipation, hematochezia, melena : No irregular bleeding, dysuria, frequency, urgency, hesitancy, hematuria, flank pain, urinary flow changes, urinary incontinence or retention MSK: No back pain, neck pain, joint pain, myalgias, +left elbow pain Skin: No lesions, rashes Neuro: No weakness, numbness, paresthesias, LOC, dizziness, headache Psych: No anxiety/panic, depression, SI/HI, AH/VH All other systems reviewed and are negative. [facility] Past Medical History Attestation statement: The following information was validated with the patient. Source: old records reviewed and nursing notes reviewed Medical History Cervicalgia Right ankle tendonitis Back pain Surgical History History of tubal ligation Family History Family History Father Medical history unknown Mother Alive and well Maternal Grandmother Lung cancer Social History Social History Household Members: Family Housing: House Are you a primary acute care surgeon to a significant other at home: No Do you presently have visiting nurse or other home services: No Alcohol intake: current Alcohol intake frequency: holidays/special occasions only Alcohol type: hard liquor Patient Tobacco Use Status: Never used Tobacco e-Cigarette/Vaping Use: Never Used Advance Directives: No Advance Directives Information Provided: Yes Do you have a plan to hurt others: No Plan service: No 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al status: employed 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: [employer] worker 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al exposures/hazards: No Cognitive needs: No Hearing needs: No Vision needs: No Physical Exam ED Vital Signs: Vital Signs - 24 hr 03/28/24 13:13 03/28/24 16:31 03/28/24 16:57 Temperature 97.5 F 97.8 F 97.8 F Pulse Rate 77 70 70 Respiratory Rate 16 18 18 Blood Pressure 143/98 H 132/68 132/68 Pulse Oximetry 100 99 99 Oxygen Delivery Method Room Air Room Air Room Air BMI result Body Mass Index 29.2 Initially hypertensive, vitals otherwise WNL General: Well appearing, in no acute distress. Skin: Warm, dry, intact. No rashes or lesions. Head: Normocephalic, atraumatic. EENT: Hearing is intact b/l. PERRLA. EOM intact. Moist mucous membranes.? Neck: no midline cervical tenderness Cardiac: Chest wall symmetric. RRR Lungs: Normal respiratory effort without accessory muscle use. CTA bilaterally Back: No midline spinous or paraspinal tenderness. No step off deformity. Ext: + left posterior elbow with minimal swelling. No overlying deformity, erythema or ecchymosis. Tender to palpation along posterior/medial aspect of left elbow without palpable deformity or crepitus. No warmth. No palpable fluctuance. Range of motion of left elbow limited on extension secondary to pain. Held in flexed position. 2+ radial/ulnar pulse intact. Neuro: AOx3. Normal speech. Ambulating with steady gait. Psych: Appropriate mood and affect. Responds appropriately to questions. Course Course Course Narrative: RME: 38 yold female presents to the ED for left elbow pain. patient fell due to black ice and fell unto left elbow. patient denies hitting head. positive for left elbow tenderness. Xray ordered Reevaluation(s) Reevaluation #1: X-ray left elbow showing faint linear lucency projecting off of the radial head and coronoid, not visualized on other views. Given tenderness over this area on exam, CTA of left elbow was ordered. CT shows a minimally displaced fracture involving the coronoid process of the left ulna with a very small joint effusion. Radial head and neck intact. Distal humerus intact. > patient placed in posterior long arm splint, assisted by radiographer technologist debra. CMS intact post splinting. patient reports comfort with splint. placed in sling for comfort. advised f/u with ortho this week - referral provided. Advised Tylenol/Motrin for pain control. morphine sent for breakthrough pain. Patient has remained stable throughout ED visit today. Discussed worrisome signs and symptoms and when to return to the ED. All questions answered at this time. Patient is agreeable with disposition and stable for discharge. Medications Administered Discontinued Medications Generic Name Dose Route Start Last Admin Trade Name Freq PRN Reason Stop Dose Admin Ketorolac Tromethamine 30 mg 03/28/24 14:47 03/28/24 15:04 Ketorolac Tromethamine 30 Mg/Ml Vial IM 03/28/24 14:48 30 mg ONCE ONE Administration Procedures Orthopedic Splinting/Casting Injury #1: Side: left Upper Extremity Injury Location: elbow Upper Extremity Immobilizer: sling/shoulder immobilizer and posterior splint Medical Decision Making Medical Decision Making MDM Narrative: 38 year old female with pmhx significant for GERD presents to the ED today for evaluation of left elbow pain s/p slip and fall approx 2.5 hours ago. Patient initially hypertensive, now resolved. Vitals otherwise WNL. She is nontoxic appearing in no acute distress. Sitting comfortably on the exam bed. Exam significant for left posterior elbow with minimal swelling. No overlying deformity, erythema or ecchymosis. Tender to palpation along posterior/medial aspect of left elbow without palpable deformity or crepitus. No warmth. No palpable fluctuance. Range of motion of left elbow limited on extension secondary to pain. Held in flexed position. 2+ radial/ulnar pulse intact. Differential diagnosis includes elbow contusion, elbow fracture, elbow dislocation, MSK sprain/strain, arthritis. Presentation not consistent with gout, pseudogout, septic joint. Unlikely neurovascular compromise, threat to limb, compartment syndrome, DVT. Plan for imaging, pain control, and re-evaluation. Differential Diagnosis Differential Diagnoses: The differential diagnosis associated with the presentation includes as above. Admission/Observation not indicated. Independent Interpretation I performed an independent interpretation of an: Plain X-Ray and CT Scan Interpretation: X-ray left elbow with slight irregularity around the radial head CT left elbow showing fracture of coronoid process Radiology Impression Discussion of test interpretation with radiology: I have reviewed the radiologist's reading. Radiologist Impression: Procedure(s): XR elbow LT 2V Accession Number(s): [id number] cc: Arnaldo Shabazz; Physician,Unknown ~ CLINICAL HISTORY: fall 3 view left elbow Comparison: None Findings: On the lateral view, there is a faint linear lucency projecting over the radial head and coronoid. No joint effusion. No radiopaque foreign body. IMPRESSION: On the lateral view, there is a faint linear lucency projecting of the radial head and coronoid not seen on other views. Suspect this is artifactual in nature however if there is ongoing discomfort, repeat imaging could be considered. The lack of joint effusion argues against fracture. This document has been electronically signed by: Andrew Walker MD on 03/28/2024 14:45:49 Procedure(s): CT elbow LT wo IV con Accession Number(s): [id number] cc: Physician,Unknown ; Velma Gaytan~ Report Number: [id number]: Total DLP = 92.00 mGy-cm CLINICAL HISTORY: ?radial head fx on xr, pain s p fall onto elbow Examination: Noncontrast CT of the left elbow Indication: Question of fracture on radiograph Comparison: Same day radiograph Findings: There is a minimally displaced fracture involving the coronoid process of the ulna with a very small joint effusion. The radial head and neck are intact. The distal humerus is also intact. Impression: Minimally displaced fracture involving the coronoid process of the ulna with a very small joint effusion. This document has been electronically signed by: Andrew Walker MD on 03/28/2024 15:53:34 Independent Historian Clinical information obtained from an independent historian. History obtained from or confirmed by: Spouse External Record Review External record reviewed: Inpatient record Prescription Management I considered prescription management with: Pain Medication (morphine) Social Determinants Patient?s care significantly limited by Social Determinants of Health including: Other Social Determinant of Health Critical Care Time Critical Care Time Critical Care Time: No Discharge Plan Discharge Clinical Impression: Fracture of coronoid process of left ulna Patient Disposition: Home, Self-Care Instructions: Arm Fracture in Adults (ED), How to Use a Sling (ED) Additional Instructions: You were evaluated in the ED today for your left elbow pain after a slip and fall today. A CT scan of your left elbow shows a fracture of the coronoid process of your ulna. You were placed in a splint today and provided with a sling for comfort. Keep this splint clean, dry and intact until you follow up with the process safety specialist. As we discussed, while at home please make sure you are elevating your right arm to help with the swelling. I recommend you take 600mg ibuprofen every 6 hours or tylenol 650mg every 6 hours as needed for pain. If needed, you can alternate these medications so that you take one medication every 3 hours. For example, at noon take ibuprofen, then at 3pm take tylenol, then at 6pm take ibuprofen.? Please take morphine as directed as necessary for breakthrough pain. this is a controlled pain medication. please use with caution. Please follow-up with an orthopedic surgeon in 1 week. You have been provided with a referral. Call them to make an appointment, they will not call you. Return to the Emergency Department if you experience worsening pain, numbness, tingling, change of color in your fingers, or any other concerning symptoms. Prescriptions: New morphine 15 mg tablet 15 mg PO Q8H PRN (Reason: pain (scale score 7-10)) Qty: 9 0RF Rx Instructions: Partial Fill upon patient request. No Action cetirizine [Zyrtec] 10 mg tablet 10 mg PO DAILY PRN (Reason: allergy symptoms) Qty: 90 2RF fluticasone propionate 50 mcg/actuation spray,suspension See Rx Instructions .ROUTE .COMPLEX Qty: 48 1RF Dose Instruction: 2 SPRAY INTRANASALLY DAILY FOR 1 MONTH ADMINISTER INTO EACH NOSTRIL Rx Instructions: 2 SPRAY INTRANASALLY DAILY FOR 1 MONTH ADMINISTER INTO EACH NOSTRIL gabapentin 100 mg capsule 100 mg PO TID PRN (Reason: pain) 7 Days Qty: 21 0RF ibuprofen 800 mg tablet 800 mg PO Q8H PRN (Reason: pain) Qty: 30 1RF Referrals: [facility] – [place] Orthopedic Surgeons [Provider Group] - 3 days (coronoid fracture) Interventions: ED Discharge Assessment Last Done: 03/28/24 16:57 Discharge Date/Time: 03/28/24 16:57 Print Language: Armenian
[2024-03-28] MEDS: Ketorolac Tromethamine 30 MG/ML VIAL IM (15:04)
[2024-03-28 16:31] VITALS: BP 132/68; PULSE 70; RESP 18; TEMP 36.6; O2SAT 99
[2024-03-28 16:57] VITALS: BP 132/68; PULSE 70; RESP 18; TEMP 36.6; O2SAT 99
== END 2024-03-28 16:57 | disposition home or self-care (01) ==
PROVIDERS: Emergency Provider Emergency Medicine
DX: S52.202A Unspecified fracture of shaft of left ulna, initial encounter for closed fracture (principal); M25.522 Pain in left elbow; W00.0XXA Fall on same level due to ice and snow, initial encounter; Y93.89 Activity, other specified; Y92.007 Garden or yard of unspecified non-institutional (private) residence as the place of occurrence of the external cause; Y99.8 Other external cause status
CPT/HCPCS: 29105; 73070; 73200; 96372; 99283; 99284; J1885

== ENCOUNTER → 2024-03-28 13:17 | Outpatient (BNV) | payer OTHER, SELFPAY | PROVIDERS: Emergency Provider Emergency Medicine; Visit Provider Radiology Vascular & Interventional Radiology | DX: S52.042A Displaced fracture of coronoid process of left ulna, initial encounter for closed fracture (principal); W19.XXXA Unspecified fall, initial encounter | CPT/HCPCS: 73070; 73200 ==

== ENCOUNTER → 2024-03-29 15:30 | Outpatient (AMB) | payer OTHER, SELFPAY ==
--- NOTE | 2024-03-29 16:47 | A.OFFPC_ITS ---
Intake Visit Reasons: ed follow up letter Allergies Seasonal Allergies Allergy (Intermediate, Verified 03/29/24 16:49) Congestion Medication List - Last Reconciled 03/29/24 by OLEKSANDR He- cetirizine (Zyrtec) 10 mg PO DAILY PRN fluticasone propionate 50 mcg/actuation 2 SPRAY INTRANASALLY DAILY FOR 1 MONTH ADMINISTER INTO EACH NOSTRIL gabapentin 100 mg PO TID PRN 7 days ibuprofen 800 mg PO Q8H PRN morphine 15 mg PO Q8H PRN Tobacco use date assessed: 07/16/23 Dental Screening Dental Screen Date: 07/16/23 HPI HPI Comments History of Present Illness Details Telehealth visit: Hospital md fu: [place] [facility] [place] of [place]. The injury occurred when she fell at her chicken coop. The fall happened on March 28. Since the fracture, she has been unable to work. Initially, she sought treatment in the emergency room, where a nurse wrapped the injured area. Due to scheduling conflicts related to her nephew's graduation, she managed to move her orthopedic appointment to April 02, earlier than initially planned. She has been managing her pain with Motrin and Tylenol and reports that Morphine, which was prescribed, is ineffective for her. She describes using Motrin primarily at the beginning of the day and before bed to manage the discomfort. She reports she has good sensation and movement in her fingers. Moving them as much as possible [facility] [place]: X-ray left elbow showing faint linear lucency projecting off of the radial head and coronoid, not visualized on other views. Given tenderness over this area on exam, CTA of left elbow was ordered. CT shows a minimally displaced fracture involving the coronoid process of the left ulna with a very small joint effusion. Radial head and neck intact. Distal humerus intact. > patient placed in posterior long arm splint, assisted by technician semiconductor development debra. CMS intact post splinting. patient reports comfort with splint. placed in sling for comfort. advised f/u with ortho this week - referral provided. Advised Tylenol/Motrin for pain control. morphine sent for breakthrough pain. Patient has remained stable throughout ED visit today. Discussed worrisome signs and symptoms and when to return to the ED. All questions answered at this time. Patient is agreeable with disposition and stable for discharge Discussion Notes I discussed with the patient the importance of keeping her appointment with the inventory specialist for further evaluation and management of her elbow fracture. I provided a note to excuse her from work until her orthopedic appointment on April 02, which I electronically sent and will mail as a hard copy. Pain management was also reviewed, including the ineffectiveness of Morphine for this patient. No new diagnostic studies were ordered as the focus remains on ensuring the patient receives specialized orthopedic care. Return precautions were emphasized, and I encouraged reaching out via the patient portal for any urgent concerns or needs. Patient Instructions - Rest the left elbow as much as possibl e and keep it in the sling for support. - Continue with Motrin and Tylenol for p ain management as needed. - Attend the orthopedic appointment on . - Monitor for symptoms of impaired circu lation, such as discoloration or numbness, in the fingertips. - Use the patient portal to communicate any additional needs or concerns. Plan - Provided medical documentation for abs ence from work due to the fracture 03/28- 04/02/24 - Follow-up with inventory specialist f or further evaluation and management of the left elbow fracture. - Recommended continuation of current pa in management regimen with Motrin and Tylenol. - Advised on monitoring signs of impaire d circulation and instructed use of the patient portal for ongoing communication. Patient was informed and verbally consented to the use of an ambient scribe for clinic note documentation during this visit. Total time spent caring for the patient today was 11 minutes. This includes time spent before the visit reviewing the chart, time spent during the visit, and time spent after the visit on documentation, reviewing laboratory results, diagnostic imaging, medications, performing a medically necessary evaluation, counseling on diagnoses, care coordination, ordering appropriate tests, ordering appropriate medications, review of tests performed by other providers, reporting test results with the patient, communication with other healthcare providers. . [facility] Medical History Cervicalgia Right ankle tendonitis Back pain Surgical History History of tubal ligation Family History Father Medical history unknown Mother Alive and well Maternal Grandmother Lung cancer Social History Household Members: Family Both parents involved: No Caregiver staying overnight: No Housing: House Are you a primary patient care manager to a significant other at home: No Do you presently have visiting nurse or other home services: No 75 years or older and lives alone: No Alcohol intake: current Alcohol intake frequency: holidays/special occasions only Alcohol type: hard liquor Patient Tobacco Use Status: Never used Tobacco e-Cigarette/Vaping Use: Never Used service: No 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al status: employed 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: [employer] 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al exposures/hazards: No Cognitive needs: No Hearing needs: No Vision needs: No Questionnaire Thrive Questionnaire Date Thrive assessed: 07/16/23 AMBROSIO-7 AMB Questionnaire AMBROSIO-7 Date AMBROSIO - 7 assessed: 07/16/23 Source: Developed by Drs. Fernando Blackmon, Rosalina Galvan, Maurizio Gramajo and colleagues, with an educational alexandru from [employer]. Physical exam (Primary Care) Tobacco/Smoking Status: Tobacco use Status Tobacco use date assessed 07/16/23 01/14/24 10:30 Patient Tobacco Use Status Never used Tobacco 03/24/24 09:48 e-Cigarette/Vaping Use Never Used 01/14/24 10:30 Thrive Assessment: Date of Thrive Assessment Date Thrive assessed 07/16/23 01/14/24 10:30 Telehealth Telehealth Telehealth Platform: [facility] Location of provider rendering services: practice address Location of patient: address on file Patient Identification confirmed using: Name, : Yes Telehealth method: voice only Patient verbally consented to treatment: Yes Patient verbally consented to billing insurance company: Yes Patient informed of any privacy concerns related to visit: Yes Minutes spent on Phone/Video with Pt.: 7 Coding Level of Care Code Tele Est Pt Level 2 (87198) Complex EM visit Add On G2211 Diagnoses Hospital discharge follow-up Z09 Closed fracture of left elbow, initial encounter S42.402A Encounter type: initial encounter Fracture type: closed Assessment & Plan Assessment & Plan (1) Hospital discharge follow-up: Code(s): Z09 - Encounter for follow-up examination after completed treatment for conditions other than malignant neoplasm (2) Left elbow fracture: Code(s): S42.402A - Unspecified fracture of lower end of left humerus, initial encounter for closed fracture Category: Medical Qualifiers: Encounter type: initial encounter Fracture type: closed Qualified Code(s): S42.402A - Unspecified fracture of lower end of left humerus, initial encounter for closed fracture Plan . Medications: Discontinued morphine Partial Fill upon patient request. Discontinued Reason: Patient no longer taking 15 mg PO Q8H PRN 9 tabs 0RF pain (scale score 7-10)
--- OUTSIDE RECORDS SUMMARY | 2024-03-29 17:00 | XMS_ITS | Encounter Summary ---
Author Organization [employer] [facility] Address [address] [place] [address] Care Team Providers Care Wagon Driller Name Role Phone Unavailable Primary Care Provider [...]
--- OUTSIDE RECORDS SUMMARY | 2024-03-29 17:00 | XMS_ITS | Clinical Summary ---
Author Organization [employer] [facility] Address [address] [place] [address] Care Team Providers Care Warp Spinner Name Role Phone Elly Jean MD Primary Care Provider [phone] Family History Medical History Relation Name Comments [...] age to complete this topic Care Teams Warp Spinner Relationship Specialty Start Date End Date Elly Jean MD [address] [place] [address] PCP - General Internal Medicine 03/28/16
--- OUTSIDE RECORDS SUMMARY | 2024-03-29 17:00 | XMS_ITS | Clinical Summary ---
Author Organization [employer] Address [address] [place] [address] Care Team Providers Care District Customs Director Name Role Phone Unavailable Primary Care Provider Unavailabl e Allergies No known active allergies Medications fluticasone (Flonase) 50 MCG/ACT nasal spray USE 1 SPRAY IN EACH NOSTRILS TWICE A DAY NEEDED Active ibuprofen 800 MG tablet 10/03/2023 Active Encounters Date Type Department Care Team Description 03/23/2024 Telephone [facility] [address] [place] [address] Go Roth 02/23/2024 Telephone [facility] [address] [place] [address] Greg Araiza from Last 3 Months Immunizations [...] Most Recently Relevant to Health Maintenance Insurance [facility]
--- OUTSIDE RECORDS SUMMARY | 2024-03-29 17:00 | XMS_ITS | Encounter Summary ---
Author Organization [employer] Address [address] [place] [address] Care Team Providers Care Bakery Associate Name Role Phone Unavailable Primary Care Provider Unavailabl e Encounter Details Date Type Department Care Team (Late st Contact Info) Description 03/23/2024 Telephone [facility] ADULT DENTAL [address] [place] [address] Go Roth Social History Tobacco Use Types [...]
== END ==
LOC: HO.HMCFM 15:30
PROVIDERS: PCP Nurse Practitioner Family; Visit Provider Nurse Practitioner Family
DX: S42.402A Unspecified fracture of lower end of left humerus, initial encounter for closed fracture (principal); Z09 Encounter for follow-up examination after completed treatment for conditions other than malignant neoplasm

== ENCOUNTER 2024-04-02 10:35 | Outpatient (AMB) | payer OTHER, SELFPAY ==
--- NOTE | 2024-04-02 10:40 | A.OFFVIS_ITS ---
Vital Signs 3 04/02/24 11:11 Height 4 ft 11 in Weight 144 lb BMI 29.1 Intake Visit Reasons: ED f/u Fx of coronoid process of LT ulna Intake Note: Vania is a 38 year old female who presents today for an ED follow up s/p fracture of the left ulna coronoid process, DOI 03/28/24. Patient reports she fell landing on her left elbow. Patient has been taking Ibuprofen and Tylenol for pain. She reports numbness on her left ring and small finger. Denies previous injuries or surgeries to the left elbow. Patient expresses frustration with the way her splint was done. Fingers are visibly squished together, she believes this is the reason for her numbness and tingling. Please see below. Allergies Seasonal Allergies Allergy (Intermediate, Verified 04/02/24 11:24) Congestion Medication List - Last Reconciled 04/02/24 by Luis Saldivar PA-C cetirizine (Zyrtec) 10 mg PO DAILY PRN fluticasone propionate 50 mcg/actuation 2 SPRAY INTRANASALLY DAILY FOR 1 MONTH ADMINISTER INTO EACH NOSTRIL gabapentin 100 mg PO TID PRN 7 days ibuprofen 800 mg PO Q8H PRN HPI HPI ED f/u Fx of coronoid process of LT ulna: Details: 38 yo female presents to the office today for an injury she sustained to her left elbow after slipping on the ice as she was going to feed her chickens. She was seen in the ED, xrays obtained and she was placed in a splint and referred to our office for ortho eval. [facility] Medical History Cervicalgia Right ankle tendonitis Back pain Surgical History History of tubal ligation Family History Father Medical history unknown Mother Alive and well Maternal Grandmother Lung cancer Social History Household Members: Family Both parents involved: No Caregiver staying overnight: No Housing: House Are you a primary lead care manager to a significant other at home: No Do you presently have visiting nurse or other home services: No 75 years or older and lives alone: No Alcohol intake: current Alcohol intake frequency: holidays/special occasions only Alcohol type: hard liquor Patient Tobacco Use Status: Never used Tobacco e-Cigarette/Vaping Use: Never Used service: No 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al status: employed 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: [employer] worker 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al exposures/hazards: No Cognitive needs: No Hearing needs: No Vision needs: No Review of Systems Const All systems reviewed & are unremarkable except as noted in HPI and below Physical Exam Vital Signs: BMI result Body Mass Index 29.1 Const General: cooperative and no acute distress Orientation/consciousness: patient oriented x3 Resp Effort & Inspection: normal respiratory effort and able to speak in complete sentences Cardio Peripheral pulses: Peripheral pulses 2+ throughout Neuro General: patient oriented x3 Extrem Other: Left elbow normal to inspection she does have diffuse swelling around the elbow with mild tenderness to palpation. Range of motion is limited due to pain. She can supinate and pronate without pain. Neurovascularly intact. Office Procedures AMB Fracture Care Fracture Billing Code: Fracture Billing Code Results Reviewed Results Reviewed: CT scan left elbow Impression: Minimally displaced fracture involving the coronoid process of the ulna with a very small joint effusion. Assessment & Plan Assessment & Plan (1) Left elbow fracture: Code(s): S42.402A - Unspecified fracture of lower end of left humerus, initial encounter for closed fracture Category: Medical Qualifiers: Encounter type: initial encounter Fracture type: closed Qualified Code(s): S42.402A - Unspecified fracture of lower end of left humerus, initial encounter for closed fracture Plan: She will continue to use the sling for comfort and sleeping. She can come out of the sling and perform gentle ROM. No forceful movements or lifting more than a cell phone. She will remain out of work until I see her back in 6 weeks with xrays, sooner if needed. Orders: Orders 2 OT Evaluation and Treatment Today S42.402A - Unspecified fracture of lower end of left humerus, initial encounter for closed fracture Coding Level of Care Code New Pt Level 3 (90032) Complex EM visit Add On G2211 Diagnoses Closed fracture of left elbow, initial encounter S42.402A Encounter type: initial encounter Fracture type: closed CPT Codes Fracture Care - Fracture Billing Code: Fracture Billing Code ([id number])
[2024-04-02 11:11] VITALS: BMI 29.1
--- OUTSIDE RECORDS SUMMARY | 2024-04-02 11:40 | XMS_ITS | Encounter Summary ---
Author Organization [employer] Address [address] [place] [address] Care Team Providers Care Supervisor Instrument Maintenance Name Role Phone Unavailable Primary Care Provider Unavailabl e Encounter Details Date Type Department Care Team (Late st Contact Info) Description 03/23/2024 Telephone [facility] ADULT DENTAL [address] [place] [address] Go Roth Social History Tobacco Use Types [...]
--- OUTSIDE RECORDS SUMMARY | 2024-04-02 11:40 | XMS_ITS | Data Portability ---
Author Organization [place] [facility] Address [address] [place] [address] Care Team Providers Care Systems Tester Name Role Phone MARIA DEL CARMEN CHAVES Primary Care Provider ATILIO MILES Referring Provider [phone] Assessment Encounter Date Assessment Date Assessment LastModified by Organization Details LastModified Time 06/07/2014 06/07/2014 Vania Chacon is a 28? ? ?year old woman with complaints of left sided low back pain which is radiating occasionally ? ? ?into the left lower extremity.? ? ? On exam, she has pain on flexion . Trigger points are elicited in the left paraspinal muscles in the lower lumbar region. MRI Lumbar spine is within normal limits.? ? ?She is here for? ? ?a trial of trigger point injection in the left paraspinal muscles under ultrasound guidance. The risks and benefits of the procedure were discussed and she wishes to proceed . She has continued pain in her left lower extremity with numbness. EMG/NCV study can be considered if there is no improvement in her symptoms after the injection. She will call for a follow up appointment. [email or web address] Not available 06/07/2014 15:09:04 09/05/2014 09/05/2014 Vania? ? ?Paola is a 28? ? ?year old woman with complaints of left sided low back pain which is radiating occasionally ? ? ?into the left lower extremity.? ? ? On exam, she has pain on flexion . Trigger points are elicited in the left paraspinal muscles in the lower lumbar region. MRI Lumbar spine is within normal limits.? ? ?She is here for? ? ?a? ? ?repeat trigger point injection in the left paraspinal muscles under ultrasound guidance. The risks and benefits of the procedure were discussed and she wishes to proceed . She has continued pain in her left lower extremity with numbness. I recommend a trial of left piriformis muscle injection under fluoroscopic guidance. The risks and benefits of the procedure? ? ? were discussed in detail. She wishes to proceed. An appointment has been booked for the same. She needs a operator and truck driver on the day of the procedure. I recommend an EMG/NCV study. [email or web address] Not available 09/07/2014 16:08:32 09/19/2014 09/19/2014 Vania? ? ?Paola is a 28? ? ?year old woman with complaints of left sided low back pain which is radiating occasionally ? ? ?into the left lower extremity.? ? ? She has continued pain in her left lower extremity with numbness.? ? ?She is here for? ? ?a trial of left piriformis muscle injection under fluoroscopic guidance. The risks and benefits of the procedure? ? ? were discussed in detail. She wishes to proceed. She will follow up in four weeks [email or web address] Not available 09/20/2014 11:08:34 10/17/2014 10/17/2014 Vania? ? ?Paola is a 28? ? ?year old woman with complaints of left sided low back pain which is radiating occasionally ? ? ?into the left lower extremity.? ? ? She has continued pain in her left lower extremity with numbness.? ? ?She is here for? ? ?a follow up after a trial of left piriformis muscle injection under fluoroscopic guidance. She reports good pain benefit for one month with return of pain. I recommend a repeat left piriformis muscle injection under fluoroscopic guidance. The risks and benefits of the procedure? ? ? were discussed in detail. She wishes to proceed. An appointment has been booked for the same. She needs a operator and truck driver on the day of the procedure. [email or web address] Not available 10/17/2014 15:57:59 11/02/2014 11/02/2014 Vania? ? ?Paola is a 28? ? ?year old woman with complaints of left sided low back pain which is radiating occasionally ? ? ?into the left lower extremity.? ? ? She has continued pain in her left lower extremity with numbness.? ? ?She is here for? ? ?a trial of left piriformis muscle injection under fluoroscopic guidance. The risks and benefits of the procedure? ? ? were discussed in detail. She wishes to proceed. She will follow up as needed. [email or web address] Not available 11/08/2014 17:24:33 Plan of Treatment Reminders Order Date Submit Date Provider Last Modified By Organization Details Last Modified Time Details Appointments None record ed. Lab None record ed. Referral None record ed. Procedures None record ed. Surgeries None record ed. Imaging None record ed. Medication Orders None record ed. Patient TargetsNo targets recorded. Patient Instructions Encounter Date Encounter Id Patient Instructions Last Modified By Organization Details Last Modified Time 06/07/2014 [id number] She was advised against bed rest lasting longer than four days and to continue activities as tolerated. [email or web address] Not available 06/07/2014 15:07:21 09/05/2014 [id number] She was advised against bed rest lasting longer than four days and to continue activities as tolerated. [email or web address] Not available 09/05/2014 14:48:47 09/19/2014 [id number] She was advised against bed rest lasting longer than four days and to continue activities as tolerated. [email or web address] Not available 09/20/2014 11:06:04 10/17/2014 [id number] She was advised against bed rest lasting longer than four days and to continue activities as tolerated. [email or web address] Not available 10/17/2014 15:51:03 11/02/2014 [id number] She was advised against bed rest lasting longer than four days and to continue activities as tolerated. [email or web address] Not available 11/08/2014 17:23:13 Reason for Referral None Reported. Results Created Date Observation Date Name Description Value Unit Range Abnormal Flag Note LastModifiedBy Organization Detail LastModifiedTime 05/24/19 15 05/22/2014 MRI, lumba r spine No observ ation record ed. [email or web address] [facility] [address], [place], [address], 06/02/2014 14:47:24 Result Notes None recorded. Problems Name Problem SNOMED Code Status Onset Date Resolution Date Notes Provider Name and Address Organization Details Recorded Time Displacement of lumbar intervertebral disc without myelopathy 20011130 Active Morenita cassidy MD [address] [place] [address] , [address] [place] [address] [place], [address], [place] [facility] 5 17:24:33 Lumbosacral radiculitis 21926531 Active Morenita cassidy MD [address] , [address], [place], [address], [place] [facility] 5 17:24:33 Muscle pain 43557675 Active Morenita cassidy MD [address] [facility] [place] , [address], [facility] [place], [address], [place] [facility] 5 17:24:33 Piriformis syndrome 131640807 Active Morenita cassidy MD [address] , [address], [facility] [place], [address], [place] [facility] 5 17:24:33 Problem Notes None recorded. Procedures Surgical History Date Name Laterality Status Provider Name and Address Organization Details Recorded Time 5 Piriformis injection under fluroscopic guidance. completed Morenita Gallegos MD [address] , [address], [place], [address], [place] [facility] 11/08/2014 17:24:33 5 Piriformis injection under fluroscopic guidance. completed Morenita Gallegos MD [address] , [address], [place], [address], [place] [facility] 09/20/2014 11:08:34 5 Trigger Point Injections under ultrasound guidance completed Morenita Gallegos MD [address] [address] [facility] [address], [place], [address], [place] [facility] 09/05/2014 14:51:05 5 Trigger Point Injections under ultrasound guidance completed Morenita Gallegos MD [address] [facility] [address] [place] [address], [place], [address], [place] [facility] 06/07/2014 15:11:16 Imaging Results Imaging Date Name Status LastModified by [facility] Details LastModified Time 05/22/2014 MRI, lumbar spine completed [facility] [address], [place], [address], 06/02/2014 14:47:24 Procedure Notes None recorded. Medical Equipment None Reported. Allergies No known drug allergies Medications Name Sig Start Date Stop Date Status Note LastModified by Organization Details LastModified Time cyclobenzapri ne 10 mg tablet TAKE 1 TABLET BY MOUTH 3 TIMES A DAY FOR 7 DAYS NEEDED FOR SPASM DO NOT OPERAT HEAVY MACHINARY active Not Available Not Available No t Available nitrofurantoi n macrocrystal 50 mg capsule TAKE 1 CAPSULE BY MOUTH FOUR TIMES A DAY active Not Available Not Available No t Available naproxen 250 mg tablet TAKE 1 TABLET BY MOUTH TWICE A DAY NEEDED FOR PAIN FOR 14 DAYS active Not Available Not Available No t Available fluticasone propionate 50 mcg/actuation nasal spray,suspens ion USE 1 SPRAY IN EACH NOSTRILS TWICE A DAY NEEDED active Not Available Not Available No t Available diazepam 5 mg tablet TAKE 1 TABLET BY MOUTH TWICE DAILY NEEDED active Not Available Not Available No t Available Flector 1.3 % transdermal 12 hour patch APPLY 1 PATCH TWICE A DAY active Not Available Not Available No t Available Multi Vitamin active Not Available Not Available Not Available Vitals Date Recorded Oxygen saturation Oxygen saturation in Arterial blood by Pulse oximetry Heart rate Systolic blood pressure Diastolic blood pressure Provider Name and Address Organization Details Last Updated DateTime 5 99 % 99 % 78 /min 131 mm[Hg] 85 mm[Hg] Carlota Vasquez [place] [facility] 5 14:24:17 Date Recorded Oxygen saturation Oxygen saturation in Arterial blood by Pulse oximetry Heart rate Systolic blood pressure Diastolic blood pressure Provider Name and Address Organization Details Last Updated DateTime 5 98 % 98 % 83 /min 119 mm[Hg] 64 mm[Hg] Carlota Vasquez [place] [facility] 5 14:21:14 Date Recorded Oxygen saturation Oxygen saturation in Arterial blood by Pulse oximetry Heart rate Systolic blood pressure Diastolic blood pressure Provider Name and Address Organization Details Last Updated DateTime 5 99 % 99 % 78 /min 117 mm[Hg] 79 mm[Hg] Carlota Vasquez [place] [facility] 5 11:14:17 Date Recorded Oxygen saturation Oxygen saturation in Arterial blood by Pulse oximetry Heart rate Systolic blood pressure Diastolic blood pressure Provider Name and Address Organization Details Last Updated DateTime 5 99 % 99 % 91 /min 118 mm[Hg] 60 mm[Hg] Carlota Vasquez [place] [facility] 5 15:31:12 Date Recorded Oxygen saturation Oxygen saturation in Arterial blood by Pulse oximetry Heart rate Systolic blood pressure Diastolic blood pressure Provider Name and Address Organization Details Last Updated DateTime 5 98 % 98 % 76 /min 105 mm[Hg] 72 mm[Hg] Carlota Vasquez [place] [facility] 5 13:47:40 Social History Question Answer Notes LastModified by Organizat ion Details LastModified Time Tobacco Smoking Status Never Smoker Not Available [employer] 12/10/2019 03:16:10 What Is Your Level Of Alcohol Consumption? 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 No [id number] Information not available 12/10/2019 Education 12 Some College Information not available 05/19/2014 What Is Your Occupation? [employer] [id number] Information not available 12/10/2019 Live Alone Or With Others? With Others , 3 Sons And Daughter Information not available 05/19/2014 Marital Status [email or web address] Informatio n not available 05/19/2014 Sex: Unknown Functional Status None recorded. Mental Status None recorded. Family History Nothing Reported. Medical History Condition Response Anxiety Disorder Y Migrane Y Gynecological HistoryNo gynecological history recorded. Obstetrics History GPAL:G 0 P 0 0 0 0 Past Encounters Encounter ID Performer Location Encounter Start Date Encounter Closed Date Diagnosis/Indication Diagnosis SNOMED-CT Code Diagnosis ICD10 Code Diagnosis Note [id number] [facility] [address] [place] [id number] 05/19/2014 13:49:10 05/20/2014 12:10:41 Displacement of lumbar intervertebral disc without myelopathy 64449583 Lumbosacra l radiculitis 40292364 76279 [facility] [address] [place] [address] 06/02/2014 13:32:46 06/02/2014 14:50:17 Displacement of lumbar intervertebral disc without myelopathy 61478918 Lumbosacra l radiculitis 80873656 68116 [facility] [address] [place] [address] 06/07/2014 13:58:20 06/07/2014 15:12:34 Muscle pain 01407240 Displaceme nt of lumbar intervertebral disc without myelopathy 03563648 Lumbosacra l radiculitis 99099604 33594 Morenita Gallegos MD [facility] [address] [place] [address] 09/05/2014 14:10:43 09/05/2014 14:51:52 Muscle pain 88530428 Displaceme nt of lumbar intervertebral disc without myelopathy 35931117 Lumbosacra l radiculitis 76926865 09494 Morenita Gallegos MD [facility] [address] [place] [address] 09/19/2014 11:05:48 09/20/2014 11:09:21 Muscle pain 17911605 Displaceme nt of lumbar intervertebral disc without myelopathy 71071905 Lumbosacra l radiculitis 05622340 Piriformis syndrome 473254246 84174 [facility] [address] [place] [address] 10/17/2014 14:56:34 10/17/2014 15:58:26 Muscle pain 16846539 Displaceme nt of lumbar intervertebral disc without myelopathy 55344698 Piriformis syndrome 175228346 Lumbosacra l radiculitis 79950262 80781 [facility] [address] [place] [address] 11/02/2014 13:33:44 11/08/2014 17:26:35 Muscle pain 06490900 Displaceme nt of lumbar intervertebral disc without myelopathy 11800526 Piriformis syndrome 245873715 Lumbosacra l radiculitis 36315811 Health Concerns Section Related Observation LastModified by Organization Detai ls LastModified Time None Recorded Concern Status LastModified by Organization Details LastModified Time None Recorded Advance Directives Directive None Recorded Payers Encounter Date Sequence Insurance Name Policy Number Policy Ramsay Covered Member ID Ramsay Member ID Guarantor Name 06/07/2014 1 [facility] [id number] Vania Chacon [id number] Vilmarie Guevara 09/05/2014 1 [facility] (MEDICAID HMO) [id number] Vilmarie Guevara [id number] Vilmarie Guevara 09/19/2014 1 [facility] (MEDICAID HMO) [id number] Vilmarie Guevara [id number] Vilmarie Guevara 10/17/2014 1 [facility] (MEDICAID HMO) [id number] Vilmarie Guevara [id number] Vilmarie Guevara 11/02/2014 1 [facility]ICA[facility] H[facility]) [id number] Vilmarie Guevara [id number] Vilmarie Guevara Notes Date Note Type Note Provider Name and Address Organization Details Recorded Time 06/07/2014 text/html She is here for a trial of trigger point injections in the paraspinal muscles of the lumbar region under ultrasound guidance Morenita Gallegos MD [address] [facility] [address], [place], [address], [facility] 06/13/2014 09:04:47 09/05/2014 text/html She is here for a repeat trigger point injections in the paraspinal muscles of the lumbar region under ultrasound guidance. She reports good pain benefit from last TPI in 05/2014. She states she had issues with health insurance and was not able to follow up. She has pain radiating into left lower extremity with numbness. She has no history of bladder or bowel incontinence. Morenita Gallegos MD [address] [facility] [address], [place], [address], [facility] Pain Management 09/07/2014 16:08:57 09/19/2014 text/html She is here for a left piriformis muscle injection under fluoroscopic guidance. She reports no pain benefit with last trigger point injection. Morenita Gallegos MD [address] , [address], [place], [address], [facility] - Pain Management 09/26/2014 09:35:42 10/17/2014 text/html She is here for a follow up after a left piriformis muscle injection under fluoroscopic guidance. She reports good pain benefit for one month with return of pain. She states she was bowling with her kids and felt a pop in her left buttock region with return of pain. She has no history of weakness . She has no history of bladder or bowel incontinence. Morenita Gallegos MD [address] , [address], [place], [address], [facility] - Pain Management 10/19/2014 09:02:17 11/02/2014 text/html She is here for a left piriformis muscle injection under fluoroscopic guidance. Morenita Gallegos MD [address] , [address], [place], [address], [facility] - Pain Management 11/09/2014 10:30:25 OBGyn Episode No OBEpisode recorded.
--- OUTSIDE RECORDS SUMMARY | 2024-04-02 11:40 | XMS_ITS | Clinical Summary ---
Author Organization [employer] [facility] it Address [address] [place] [address] Care Team Providers Care Hull Sorter Name Role Phone Elly Jean MD Primary [...] age to complete this topic Care Teams Hull Sorter Relationship Specialty Start Date End Date Elly Jean MD [address] [place] [address] PCP - General Internal Medicine 03/28/16
--- OUTSIDE RECORDS SUMMARY | 2024-04-02 11:40 | XMS_ITS | Encounter Summary ---
Author Organization [employer] [facility] Address [address] [facility] [address]t [place] [address] Care Team Providers Care Wheel Of Fortune Dealer Name Role Phone Unavailable Primary Care Provider [...]
--- OUTSIDE RECORDS SUMMARY | 2024-04-02 11:40 | XMS_ITS | Clinical Summary ---
Author Organization [employer] Address [address] [facility] [address] [place] [address] Care Team Providers Care Associate Professor Of English Name Role Phone Unavailable Primary Care Provider Unavailabl e Allergies No known active allergies Medications fluticasone (Flonase) 50 MCG/ACT nasal spray USE 1 SPRAY IN EACH NOSTRILS TWICE A DAY NEEDED Active ibuprofen 800 MG tablet 10/03/2023 Active Encounters Date Type Department Care Team Description 03/23/2024 Telephone [facility] ADULT DENTAL [address] [place] [address] Go Roth 02/23/2024 Telephone [facility] ADULT DENTAL [address] [place] [address] Greg Araiza from Last 3 Months Immunizations [...] Most Recently Relevant to Health Maintenance Insurance [facility]
== END 2024-04-02 11:58 | disposition home or self-care (01) ==
PROVIDERS: Visit Provider Physician Assistant
DX: S42.402A Unspecified fracture of lower end of left humerus, initial encounter for closed fracture (principal)
CPT/HCPCS: 24670; 99203

== ENCOUNTER → 2024-04-02 10:35 | Outpatient (BNVA) | payer OTHER, SELFPAY | PROVIDERS: Visit Provider Physician Assistant | DX: S42.402A Unspecified fracture of lower end of left humerus, initial encounter for closed fracture (principal); W19.XXXA Unspecified fall, initial encounter; Y93.9 Activity, unspecified; Y92.9 Unspecified place or not applicable; Y99.9 Unspecified external cause status | CPT/HCPCS: 24670 ==

== ENCOUNTER 2024-05-03 09:12 | Outpatient (REF) | payer OTHER, SELFPAY ==
--- NOTE | ~2024-05-03 | XR_ITS ---
EXAMINATION: XR SHOULDER, RIGHT CLINICAL INFORMATION: M25.511 - Pain in right shoulder COMPARISON: 11/04/2010. TECHNIQUE: AP external rotation, Grashey, scapular Y, and axillary views of the right shoulder. FINDINGS: Normal bone mineralization. No fracture, dislocation, or suspicious bone lesion. Normal alignment. The glenohumeral joint is normal. The AC joint is normal. There is a type II acromion. No undersurface spurring. The subacromial space is preserved. Remainder of the soft tissue and bony structures appear normal. XR/XR shoulder RT min 2V IMPRESSION: Normal right shoulder. Electronically signed by: Newton Lynch MD 05/04/2024 08:49 AM EDT
--- OUTSIDE RECORDS SUMMARY | 2024-05-03 09:46 | XMS_ITS | Encounter Summary ---
Author Organization [email or web address] Address [address] [place] [address] Care Team Providers Care Compensation Consulting Manager Name Role Phone Unavailable Primary Care Provider [...]
--- OUTSIDE RECORDS SUMMARY | 2024-05-03 09:46 | XMS_ITS | Clinical Summary ---
Author Organization [employer] Address [address] [place] [address] Care Team Providers Care Insurance Collector Name Role Phone Unavailable Primary Care Provider Unavailabl e Allergies No known active allergies Medications fluticasone (Flonase) 50 MCG/ACT nasal spray USE 1 SPRAY IN EACH NOSTRILS TWICE A DAY NEEDED Active ibuprofen 800 MG tablet 10/03/2023 Active Encounters Date Type Department Care Team Description 03/23/2024 Telephone [facility] [address] [place] [address] Go Roth 02/23/2024 Telephone [facility] AD[facility] [address] [place] [address] Greg Araiza from Last 3 Months Immunizations [...] ADULT Routine 10/06/2023 1 0:00 AM EDT INTRAORAL - COMPLETE SERIES OF RADIOGRAPHIC IMAGES Routine 10/06/2023 10:00 AM EDT PERIODIC ORAL EVALUATION - ESTABLISHED PATIENT Routine 10/06/2023 10:00 AM EDT from Last 3 Months or Most Recently Relevant to Health Maintenance Insurance DELTA DENTAL OF [facility]
--- OUTSIDE RECORDS SUMMARY | 2024-05-03 09:46 | XMS_ITS | Clinical Summary ---
Author Organization [facility] Address [address] [place] [address] Care Team Providers Care General Lithographic Worker Name Role Phone Elly Jean MD Primary Care Provider [phone] Family History Medical History Relation Name Comments [...] drink = 0.6 oz pur e alcohol) Comments Unknown Sex and Gender Information Value Date Recorded Sex Assigned at Not on file Legal Sex Female 11:13 AM EST Gender Identity Not on file Sexual Orientation [...] patient's age to complete this topic Meningococcal B Vacine Aged Out No lo nger eligible based on patient's age to complete [...] age to complete this topic Care Teams General Lithographic Worker Relationship Specialty Start Date End Date Elly Jean MD [address] [place] [address] PCP - General Internal Medicine 03/28/16
== END 2024-05-03 09:13 | disposition home or self-care (01) ==
LOC: HO.HOSX 09:12
PROVIDERS: Visit Provider Physician Assistant
DX: M25.511 Pain in right shoulder (principal)
CPT/HCPCS: 73030

== ENCOUNTER 2024-05-03 09:13 | Outpatient (AMB) | payer OTHER, SELFPAY ==
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
--- OUTSIDE RECORDS SUMMARY | 2024-05-03 09:50 | XMS_ITS | Data Portability ---
Author Organization [place] [facility] Address [address] [place] [address] Care Team Providers Care Photoengraving Finisher Name Role Phone MARIA DEL CARMEN CHAVES Primary Care Provider ATILIO MILES Referring Provider Assessment Encounter Date Assessment Date Assessment LastModified [...] booked for the same. She needs a hydraulic lift driver on the day of the procedure. [...] booked for the same. She needs a hydraulic lift driver on the day of the procedure. [...] By Organization Details Last Modified Time 06/07/2014 [id number] She was advised against bed rest lasting longer than four days and to continue activities as tolerated. [email or web address] Not available 06/07/2014 15:07:21 09/05/2014 [id number] She was advised against bed rest lasting longer than four days and to continue activities as tolerated. [email or web address] Not available 09/05/2014 14:48:47 09/19/2014 [id number] She was advised against bed rest lasting longer than four days and to continue activities as tolerated. [email or web address] Not available 09/20/2014 11:06:04 10/17/2014 [id number] She was advised against bed rest lasting longer than four days and to continue activities as tolerated. [email or web address] Not available 10/17/2014 15:51:03 11/02/2014 [id number] She was advised against bed rest lasting longer than four days and to continue activities as tolerated. [email or web address] Not available 11/08/2014 17:23:13 Reason for Referral None Reported. Results Created Date Observation Date Name Description Value Unit Range Abnormal Flag Note LastModifiedBy Organization Detail LastModifiedTime 05/24/19 15 05/22/2014 MRI, lumba r spine No observ ation record ed. [email or web address] [facility] ([place] [facility]) [address], [place], [address], 06/02/2014 14:47:24 Result Notes None recorded. Problems Name Problem SNOMED Code Status Onset Date Resolution Date Notes Provider Name and Address Organization Details Recorded Time Displacement of lumbar intervertebral disc without myelopathy 20011130 Active Morenita cassidy MD [address] [place] [address] , [address] [place] [address] [place], [address], [place] [facility] 5 17:24:33 Lumbosacral radiculitis 13466518 Active Morenita cassidy MD [address] , [address], [place], [address], [place] [facility] 5 17:24:33 Muscle pain 06873389 Active Morenita cassidy MD [address] [facility] [address], [facility] [place], [address], [place] [facility] 5 17:24:33 Piriformis syndrome 120071697 Active Morenita cassidy MD [address] , [address], [facility] [place], [address], [place] [facility] 5 17:24:33 Problem Notes None recorded. Procedures Surgical History Date Name Laterality Status Provider Name and Address Organization Details Recorded Time 5 Piriformis injection under fluroscopic guidance. completed Morenita Gallegos MD [address] , [address], [place], [address], [place] [facility] 11/08/2014 17:24:33 5 Piriformis injection under fluroscopic guidance. completed Morenita Gallegos MD [address] , [address], [place], [address], [place] [facility] 09/20/2014 11:08:34 5 Trigger Point Injections under ultrasound guidance completed Morenita Gallegos MD [address] [facility] [address], [place], [address], [place] [facility] 09/05/2014 14:51:05 5 Trigger Point Injections under ultrasound guidance completed Morenita Gallegos MD [address] [facility] [address], [place], [address], [place] [facility] 06/07/2014 15:11:16 Imaging Results Imaging Date Name Status LastModified by [facility] Details LastModified Time 05/22/2014 MRI, lumbar spine completed [facility] ([place] [facility]) [address], [place], [address], 06/02/2014 14:47:24 Procedure Notes None recorded. Medical [...] /min 131 mm[Hg] 85 mm[Hg] Carlota Vasquez [place] [facility] 5 14:24:17 Date Recorded Oxygen saturation Oxygen saturation in Arterial blood by Pulse oximetry Heart rate Systolic blood pressure Diastolic blood pressure Provider Name and Address Organization Details Last Updated DateTime 5 98 % 98 % 83 /min 119 mm[Hg] 64 mm[Hg] Carlota Vasquez [place] [facility] 5 14:21:14 Date Recorded Oxygen saturation Oxygen saturation in Arterial blood by Pulse oximetry Heart rate Systolic blood pressure Diastolic blood pressure Provider Name and Address Organization Details Last Updated DateTime 5 99 % 99 % 78 /min 117 mm[Hg] 79 mm[Hg] Carlota Vasquez [place] [facility] 5 11:14:17 Date Recorded [...] Is Your Level Of Alcohol Consumption? Occasional [id number] Information not available 12/10/2019 Are You Currently Employed? Yes [employer] [id number] Information not available 12/10/2019 Which Illicit Or Recreational Drugs Have You Used? 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 [id number] Information not available 12/10/2019 Live Alone Or [...] SNOMED-CT Code Diagnosis ICD10 Code Diagnosis Note [id number] [facility] [address] [address] [facility] [place] [address] 05/19/2014 13:49:10 05/20/2014 12:10:41 Displacement of lumbar intervertebral disc without myelopathy 62742751 Lumbosacra l radiculitis 82088914 41087 [facility] [address] [place] [address] 06/02/2014 13:32:46 06/02/2014 14:50:17 Displacement of lumbar intervertebral disc without myelopathy 94654219 Lumbosacra l radiculitis 07778039 46320 [facility] [address] [place] [address] 06/07/2014 13:58:20 06/07/2014 15:12:34 Muscle pain 08465989 Displaceme nt of lumbar intervertebral disc without myelopathy 04479627 Lumbosacra l radiculitis 59400787 17449 Morenita Gallegos MD [facility] [address] [place] [address] 09/05/2014 14:10:43 09/05/2014 14:51:52 Muscle pain 74120644 Displaceme nt of lumbar intervertebral disc without myelopathy 75161323 Lumbosacra l radiculitis 57802867 17546 Morenita Gallegos MD [facility] [address] [address] [facility] [place] [address] 09/19/2014 11:05:48 09/20/2014 11:09:21 Muscle pain 30498140 Displaceme nt of lumbar intervertebral disc without myelopathy 79553135 Lumbosacra l radiculitis 99573685 Piriformis syndrome 149694879 59323 [facility] [address] [place] [address] 10/17/2014 14:56:34 10/17/2014 15:58:26 Muscle pain 94091709 Displaceme nt of lumbar intervertebral disc without myelopathy 42527057 Piriformis syndrome 656550284 Lumbosacra l radiculitis 81537765 18678 [facility] [address] [facility] [place] [address] 11/02/2014 13:33:44 11/08/2014 17:26:35 Muscle pain 30754289 Displaceme nt of lumbar intervertebral disc without myelopathy 48059782 Piriformis syndrome 577738079 Lumbosacra l radiculitis 37960034 Health Concerns Section Related Observation LastModified by Organization Detai ls LastModified Time None Recorded Concern Status LastModified by Organization Details LastModified Time None Recorded Advance Directives Directive None Recorded Payers Encounter Date Sequence Insurance Name Policy Number Policy Ramsay Covered Member ID Ramsay Member ID Guarantor Name 06/07/2014 1 [facility] [id number] Vania Chacon [id number] Vilmarie Guevara 09/05/2014 1 [facility]ON[facility] (MEDICAID HMO) [id number] Vilmarie Guevara [id number] Vilmarie Guevara 09/19/2014 1 [facility] (MEDICAID HMO) [id number] Vilmarie Guevara [id number] Vilmarie Guevara 10/17/2014 1 [facility] (MEDICAID HMO) [id number] Vilmarie Guevara [id number] Vilmarie Guevara 11/02/2014 1 [facility] [id number] Vilmarie Guevara [id number] Vilmarie Guevara Notes Date Note Type Note Provider Name and Address Organization Details Recorded Time 06/07/2014 text/html She is here for a trial of trigger point injections in the paraspinal muscles of the lumbar region under ultrasound guidance Morenita Gallegos MD [address] [facility] [address], [place], [address], [facility] 06/13/2014 09:04:47 09/05/2014 text/html She [...] or bowel incontinence. Morenita Gallegos MD [address] , [facility] [address], [place], [address], [facility] 09/07/2014 16:08:57 09/19/2014 text/html She is here for a left piriformis muscle injection under fluoroscopic guidance. She reports no pain benefit with last trigger point injection. Morenita Gallegos MD [address] , [address], [place], [address], [facility] - [facility] Management 09/26/2014 09:35:42 10/17/2014 text/html [...] or bowel incontinence. Morenita Gallegos MD [address] , [address], [place], [address], [facility] - Pain Management 10/19/2014 09:02:17 11/02/2014 text/html She is here for a left piriformis muscle injection under fluoroscopic guidance. Morenita Gallegos MD [address] , [address], [place], [address], [facility] - Pain Management 11/09/2014 10:30:25 OBGyn Episode No OBEpisode recorded.
[2024-05-03 09:51] VITALS: BMI 29.1
== END 2024-05-03 12:17 | disposition home or self-care (01) ==
PROVIDERS: PCP Nurse Practitioner Family; Visit Provider Physician Assistant
DX: M77.8 Other enthesopathies, not elsewhere classified (principal); G56.21 Lesion of ulnar nerve, right upper limb; Z04.3 Encounter for examination and observation following other accident
CPT/HCPCS: 99213; G2211

== ENCOUNTER → 2024-05-03 09:22 | Outpatient (BNV) | payer OTHER, SELFPAY | PROVIDERS: Visit Provider Radiology Diagnostic Radiology | DX: M25.511 Pain in right shoulder (principal) | CPT/HCPCS: 73030 ==

== ENCOUNTER 2024-05-04 16:49 | Outpatient (REF) | payer OTHER, SELFPAY ==
--- OUTSIDE RECORDS SUMMARY | 2024-05-04 19:27 | XMS_ITS | Encounter Summary ---
Author Organization [facility] Address [address] [facility] [address] [place] [address] Care Team Providers Care Aviation Electrician Name Role Phone Unavailable Primary Care Provider [...]
--- OUTSIDE RECORDS SUMMARY | 2024-05-04 19:27 | XMS_ITS | Data Portability ---
Author Organization [place] [facility] Address [address] [facility] [place] [address] Care Team Providers Care Band Sewer Name Role Phone MARIA DEL CARMEN CHAVES Primary Care Provider ATILIO MILES Referring Provider [phone] Assessment Encounter Date Assessment Date Assessment LastModified [...] booked for the same. 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 She needs a pole truck driver on the day of the [...] By Organization Details Last Modified Time 06/07/2014 [id number] She was advised against bed rest lasting longer than four days and to continue activities as tolerated. [email or web address] Not available 06/07/2014 15:07:21 09/05/2014 67252 She was advised against bed rest lasting longer than four days and to continue activities as tolerated. [email or web address] Not available 09/05/2014 14:48:47 09/19/2014 08888 She was advised against bed rest lasting longer than four days and to continue activities as tolerated. [email or web address] Not available 09/20/2014 11:06:04 10/17/2014 51031 She was advised against bed rest lasting longer than four days and to continue activities as tolerated. [email or web address] Not available 10/17/2014 15:51:03 11/02/2014 [id number] She was advised against bed rest lasting longer than four days and to continue activities as tolerated. [email or web address] Not available 11/08/2014 17:23:13 Reason for Referral None Reported. Results Created Date Observation Date Name Description Value Unit Range Abnormal Flag Note LastModifiedBy Organization Detail LastModifiedTime 05/24/19 15 05/22/2014 MRI, lumba r spine No observ ation record ed. [email or web address] [facility] ([facility] [address] [facility], [place], [address], 06/02/2014 14:47:24 Result Notes None recorded. Problems Name Problem SNOMED Code Status Onset Date Resolution Date Notes Provider Name and Address Organization Details Recorded Time Displacement of lumbar intervertebral disc without myelopathy 20011130 Active Morenita cassidy MD [address] [place] [address] , [address] [place] [address] [place], [address], [place] [facility] 5 17:24:33 Lumbosacral radiculitis 42820037 Active Morenita cassidy MD [address] [facility] , [address], [place], [address], [place] [facility] 5 17:24:33 Muscle pain 04172387 Active Morenita cassidy MD [address] [facility] , [address], [facility] [place], [address], [place] [facility] 5 17:24:33 Piriformis syndrome 185027052 Active Morenita cassidy MD [address] [facility] , [address], [facility] [place], [address], [place] [facility] 5 17:24:33 Problem Notes None recorded. Procedures Surgical History Date Name Laterality Status Provider Name and Address Organization Details Recorded Time 5 Piriformis injection under fluroscopic guidance. completed Morenita Gallegos MD [address] [facility] , [address], [place], [address], [place] [facility] 11/08/2014 17:24:33 5 Piriformis injection under fluroscopic guidance. completed Morenita Gallegos MD [address] [facility] , [address], [place], [address], [place] [facility] 09/20/2014 11:08:34 5 Trigger Point Injections under ultrasound guidance completed Morenita Gallegos MD [address] [facility] , [address], [place], [address], [place] [facility] 09/05/2014 14:51:05 5 Trigger Point Injections under ultrasound guidance completed Morenita Gallegos MD [address] [facility] , [address], [place], [address], [place] [facility] 06/07/2014 15:11:16 Imaging Results Imaging Date Name Status LastModified by [facility] Details LastModified Time 05/22/2014 MRI, lumbar spine completed [facility] ([facility]) [address], [place], [address], 06/02/2014 14:47:24 Procedure Notes None recorded. Medical [...] /min 131 mm[Hg] 85 mm[Hg] Carlota Vasquez [place] [facility] 5 14:24:17 Date Recorded Oxygen saturation Oxygen saturation in Arterial blood by Pulse oximetry Heart rate Systolic blood pressure Diastolic blood pressure Provider Name and Address Organization Details Last Updated DateTime 5 98 % 98 % 83 /min 119 mm[Hg] 64 mm[Hg] Carlota Vasquez [place] [facility] 5 14:21:14 Date Recorded Oxygen saturation Oxygen saturation in Arterial blood by Pulse oximetry Heart rate Systolic blood pressure Diastolic blood pressure Provider Name and Address Organization Details Last Updated DateTime 5 99 % 99 % 78 /min 117 mm[Hg] 79 mm[Hg] Carlota Vasquez [place] [facility] 5 11:14:17 Date Recorded [...] Is Your Level Of Alcohol Consumption? 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 [id number] Information not available 12/10/2019 Live Alone Or [...] SNOMED-CT Code Diagnosis ICD10 Code Diagnosis Note [id number] [facility] [address] [employer] [address] [facility] [place] [address] 05/19/2014 13:49:10 05/20/2014 12:10:41 Displacement of lumbar intervertebral disc without myelopathy 77888632 Lumbosacra l radiculitis 63258519 67146 [facility] [address] [employer] [address] [place] [address] 06/02/2014 13:32:46 06/02/2014 14:50:17 Displacement of lumbar intervertebral disc without myelopathy 16038301 Lumbosacra l radiculitis 20130557 83614 [facility] [address] [place] [address] 06/07/2014 13:58:20 06/07/2014 15:12:34 Muscle pain 63309362 Displaceme nt of lumbar intervertebral disc without myelopathy 02671460 Lumbosacra l radiculitis 68317740 07431 Morenita Gallegos MD [facility] [address] [place] [address] 09/05/2014 14:10:43 09/05/2014 14:51:52 Muscle pain 92417186 Displaceme nt of lumbar intervertebral disc without myelopathy 89296091 Lumbosacra l radiculitis 47365950 18300 Morenita Gallegos MD [facility] [address] [facility] [place] [address] 09/19/2014 11:05:48 09/20/2014 11:09:21 Muscle pain 00459162 Displaceme nt of lumbar intervertebral disc without myelopathy 08745779 Lumbosacra l radiculitis 41196340 Piriformis syndrome 151494121 19801 [facility] PA[facility] [address] [place] [address] 10/17/2014 14:56:34 10/17/2014 15:58:26 Muscle pain 82244878 Displaceme nt of lumbar intervertebral disc without myelopathy 11375101 Piriformis syndrome 602342141 Lumbosacra l radiculitis 11355839 44028 [facility] PA[facility] [address] [facility] [place] [address] 11/02/2014 13:33:44 11/08/2014 17:26:35 Muscle pain 76818877 Displaceme nt of lumbar intervertebral disc without myelopathy 32479496 Piriformis syndrome 717382083 Lumbosacra l radiculitis 03979647 Health Concerns Section Related Observation LastModified by Organization Detai ls LastModified Time None Recorded Concern Status LastModified by Organization Details LastModified Time None Recorded Advance Directives Directive None Recorded Payers Encounter Date Sequence Insurance Name Policy Number Policy Ramsay Covered Member ID Ramsay Member ID Guarantor Name 06/07/[address] [facility] [id number] Vania Chacon [id number] Vilmarie Guevara 09/05/[address] [facility] - COMMONHEALTH (MEDICAID HMO) [id number] Vilmarie Guevara [id number] Vilmarie Guevara 09/19/[address] [facility] - COMMONHEALTH (MEDICAID HMO) [id number] Vilmarie Guevara [id number] Vilmarie Guevara 10/17/[address] [facility] HE[facility] - COMMONHEALTH (MEDICAID HMO) [id number] Vilmarie Guevara [id number] Vilmarie Guevara 11/02/[address] [facility] [id number] Vilmarie Guevara [id number] Vilmarie Guevara Notes Date Note Type Note Provider Name and Address Organization Details Recorded Time 06/07/2014 text/html She is here for a trial of trigger point injections in the paraspinal muscles of the lumbar region under ultrasound guidance Morenita Gallegos MD [address] [facility] [address], [place], [address], [facility] Pain Management 06/13/2014 09:04:47 09/05/2014 text/html [...] or bowel incontinence. Morenita Gallegos MD [address] [facility] , [facility] [address], [place], [address], [facility] Pain Management 09/07/2014 16:08:57 09/19/2014 text/html She is here for a left piriformis muscle injection under fluoroscopic guidance. She reports no pain benefit with last trigger point injection. Morenita Gallegos MD [address] [facility] , [address], [place], [address], [facility] - Pain Management 09/26/2014 09:35:42 10/17/2014 text/html [...] or bowel incontinence. Morenita Gallegos MD [address] [facility] , [address], [place], [address], [facility] - Pain Management 10/19/2014 09:02:17 11/02/2014 text/html She is here for a left piriformis muscle injection under fluoroscopic guidance. Morenita Gallegos MD [address] [facility] , [address], [place], [address], [facility] - Pain Management 11/09/2014 10:30:25 OBGyn Episode No OBEpisode recorded.
--- OUTSIDE RECORDS SUMMARY | 2024-05-04 19:27 | XMS_ITS | Clinical Summary ---
Author Organization [employer] Address [address] [facility] [address] [place] [address] Care Team Providers Care Boatbuilder Apprentice Wood Name Role Phone Unavailable Primary Care Provider Unavailabl e Allergies No known active allergies Medications fluticasone (Flonase) 50 MCG/ACT nasal spray USE 1 SPRAY IN EACH NOSTRILS TWICE A DAY NEEDED Active ibuprofen 800 MG tablet 10/03/2023 Active Encounters Date Type Department Care Team Description 03/23/2024 Telephone [facility] [address] [place] [address] Go Roth 02/23/2024 Telephone [facility] [address] [place] [address] Greg Araiza from Last 3 Months Immunizations [...] to Health Maintenance Insurance [facility] [place]
--- OUTSIDE RECORDS SUMMARY | 2024-05-04 19:27 | XMS_ITS | Clinical Summary ---
Author Organization [facility] Address [address] [place] [address] Care Team Providers Care Teacher Of Gifted Students Name Role Phone Elly Jean MD Primary [...] age to complete this topic Care Teams Teacher Of Gifted Students Relationship Specialty Start Date End Date Elly Jean MD [address] [place] [address] PCP - General Internal Medicine 03/28/16
== END 2024-05-04 16:50 | disposition home or self-care (01) ==
LOC: HO.HOSX 16:49
PROVIDERS: Visit Provider Physician Assistant
DX: Z13.89 Encounter for screening for other disorder (principal)

== ENCOUNTER 2024-05-05 11:08 | Outpatient (AMB) | payer OTHER, SELFPAY ==
--- NOTE | 2024-05-05 11:17 | A.OFFVIS_ITS ---
Vital Signs 05/05/24 11:22 Height 4 ft 11 in Weight 144 lb BMI 29.1 Intake Visit Reasons: OV- left elbow fx w xrays Intake Note: Vania is a 38 year old right hand dominant female who presents today for a follow up of her left distal humerus fracture DOI 03/28/24. At her last visit she was placed in a sling and instructed to come out of sling for gentle ROM. She states that she is feeling better and uses her sling when needed. Allergies Seasonal Allergies Allergy (Intermediate, Verified 05/05/24 11:22) Congestion Medication List - Last Reconciled 05/05/24 by Luis Saldivar PA-C cetirizine (Zyrtec) 10 mg PO DAILY PRN fluticasone propionate 50 mcg/actuation 2 SPRAY INTRANASALLY DAILY FOR 1 MONTH ADMINISTER INTO EACH NOSTRIL gabapentin 100 mg PO TID PRN 7 days ibuprofen 800 mg PO Q8H PRN HPI HPI OV- left elbow fx w xrays: Details: 38-year-old female presents to the office today for a follow-up left elbow fracture. She has been working with occupational therapy and has noticed an improvement in her pain but continues to have some limitation with full extension. [facility] Medical History Cervicalgia Right ankle tendonitis Back pain Surgical History History of tubal ligation Family History Father Medical history unknown Mother Alive and well Maternal Grandmother Lung cancer Social History Household Members: Family Both parents involved: No Caregiver staying overnight: No Housing: House Are you a primary patient care assistant to a significant other at home: No Do you presently have visiting nurse or other home services: No 75 years or older and lives alone: No Alcohol intake: current Alcohol intake frequency: holidays/special occasions only Alcohol type: hard liquor Patient Tobacco Use Status: Never used Tobacco e-Cigarette/Vaping Use: Never Used service: No 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al status: employed 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: [employer] worker 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al exposures/hazards: No Cognitive needs: No Hearing needs: No Vision needs: No Review of Systems Const All systems reviewed & are unremarkable except as noted in HPI and below Physical Exam Vital Signs: BMI result Body Mass Index 29.1 Const General: cooperative and no acute distress Orientation/consciousness: patient oriented x3 Resp Effort & Inspection: normal respiratory effort and able to speak in complete sentences Cardio Peripheral pulses: Peripheral pulses 2+ throughout Neuro General: patient oriented x3 Extrem Other: Left elbow normal to inspection no swelling or tenderness to palpation. She has full flexion but lacking 15 degrees of extension. She can supinate and pronate without pain. Neurovascularly intact. Results Reviewed Results Reviewed: X-rays of the left elbow obtained in the office today and reviewed by me Minimally displaced fracture involving the coronoid process of the ulna which appears to be stable when compared to previous studies Assessment & Plan Assessment & Plan (1) Fracture of coronoid process of left ulna: Code(s): S52.042A - Displaced fracture of coronoid process of left ulna, initial encounter for closed fracture Category: Medical Qualifiers: Encounter type: subsequent encounter Fracture type: closed Fracture alignment: displaced Fracture healing: with routine healing Qualified Code(s): S52.042D - Displaced fracture of coronoid process of left ulna, subsequent encounter for closed fracture with routine healing Plan: She will continue working with occupational therapy to improve her range of motion and strength I did her explain with injuries involving the elbow there is usually a lack of full extension as an end result. Expressed understanding and will continue with occupational therapy and increase activities as tolerated. I will see her back in 6-8 weeks with new x-rays. She will continue to remain out of work. Orders: Orders XR elbow LT min 3V Today M25.522 - Pain in left elbow Coding Level of Care Code Global (47214) Diagnoses Closed displaced fracture of coronoid process of left ulna with routine healing, subsequent encounter S52.042D Encounter type: subsequent encounter Fracture type: closed Fracture alignment: displaced Fracture healing: with routine healing
[2024-05-05 11:22] VITALS: BMI 29.1
--- OUTSIDE RECORDS SUMMARY | 2024-05-05 13:09 | XMS_ITS | Clinical Summary ---
Author Organization [employer] Address [address] [facility] [address] [place] [address] Care Team Providers Care Geospatial Technician Name Role Phone Unavailable Primary Care Provider Unavailabl e Allergies No known active allergies Medications fluticasone (Flonase) 50 MCG/ACT nasal spray USE 1 SPRAY IN EACH NOSTRILS TWICE A DAY NEEDED Active ibuprofen 800 MG tablet 10/03/2023 Active Encounters Date Type Department Care Team Description 03/23/2024 Telephone [facility] [address] [place] [address] Go Roth 02/23/2024 Telephone [facility] [address] [place] [address] Greg Araiza from Last 3 Months Immunizations [...] to Health Maintenance Insurance [facility] [place]
--- OUTSIDE RECORDS SUMMARY | 2024-05-05 13:09 | XMS_ITS | Encounter Summary ---
Author Organization [employer] [facility] Address [address] [facility] [address] [place] [address] Care Team Providers Care Field Sales Engineer Name Role Phone Unavailable Primary Care Provider [...]
--- OUTSIDE RECORDS SUMMARY | 2024-05-05 13:09 | XMS_ITS | Clinical Summary ---
Author Organization [facility] Address [address] [place] [address] Care Team Providers Care Brim Buster Name Role Phone Elly Jean MD Primary Care Provider [phone] Family History Medical History Relation Name Comments [...] age to complete this topic Care Teams Brim Buster Relationship Specialty Start Date End Date Elly Jean MD [address] [place] [address] PCP - General Internal Medicine 03/28/16
== END 2024-05-05 13:32 | disposition home or self-care (01) ==
LOC: HO.HOS 11:09
PROVIDERS: Visit Provider Physician Assistant
DX: S52.042D Displaced fracture of coronoid process of left ulna, subsequent encounter for closed fracture with routine healing (principal)
CPT/HCPCS: 99024

== ENCOUNTER 2024-05-05 11:08 | Outpatient (REF) | payer OTHER, SELFPAY ==
--- NOTE | ~2024-05-05 | XR_ITS ---
EXAMINATION: XR ELBOW 3 VIEWS LEFT HISTORY: M25.522 - Pain in left elbow COMPARISON: Comparison is made with the prior examination dated 03/28/2024. FINDINGS: Three views of the left elbow are submitted. Osseous mineralization is normal. Again seen is a fracture fragment in the region of the coronoid process of the ulna on the lateral view. Position of the fragment is unchanged. The joint spaces are preserved. The soft tissues are unremarkable. XR/XR elbow LT min 3V IMPRESSION: Fracture of the coronoid process of the ulna without change. Electronically signed by: Fernando Rich MD 05/05/2024 02:14 PM EDT
--- OUTSIDE RECORDS SUMMARY | 2024-05-05 13:15 | XMS_ITS | Encounter Summary ---
Author Organization [facility] Address [address] [place] [address] Care Team Providers Care Business Leader Name Role Phone Elly Jean Md, MD Primary Care Provider Unavailable Encounter Details Date Type Department Care Team Description 05/22/2016 Release of Information Medical Records [address] [place] [id number] Abstract, Provider Social History Tobacco Use Types Packs/Day Years Used Date Smoking Tobacco: Never Alcohol Use Standard Drinks/Week Comments Not Asked 0 (1 standard drink = 0.6 oz pur e alcohol) Sex Assigned at Date Recorded Not on file documented as of this encounter Plan of Treatment Not on file documented as of this encounter Visit Diagnoses Not on filedocumented in this encounter Care Teams Business Leader Relationship Specialty Start Date End Date Elly Jean MD, MD PCP - General Internal Medicine 03/28/16 documented as of this encounter
--- OUTSIDE RECORDS SUMMARY | 2024-05-05 13:15 | XMS_ITS | Encounter Summary ---
Author Organization [facility] Address [address] [place] [address] Care Team Providers Care Cryptologic Supervisor Name Role Phone Elly Jean Md, MD Primary Care Provider Unavailable Encounter Details Date Type Department Care Team Description 05/21/2016 Transfer Records Medical Records [address] [place] [id number] Abstract, Provider Social History Tobacco Use Types [...] on filedocumented in this encounter Care Teams Cryptologic Supervisor Relationship Specialty Start Date End Date Elly Jean MD, MD PCP - General Internal Medicine 03/28/16 documented as of this encounter
== END 2024-05-05 11:09 | disposition home or self-care (01) ==
LOC: HO.HOSX 11:08
PROVIDERS: Visit Provider Physician Assistant
DX: M25.522 Pain in left elbow (principal)
CPT/HCPCS: 73080

== ENCOUNTER → 2024-05-05 11:16 | Outpatient (BNV) | payer OTHER, SELFPAY | PROVIDERS: Visit Provider Radiology Diagnostic Radiology | DX: S42.402D Unspecified fracture of lower end of left humerus, subsequent encounter for fracture with routine healing (principal); W00.0XXD Fall on same level due to ice and snow, subsequent encounter | CPT/HCPCS: 73080 ==

== ENCOUNTER 2024-06-18 11:00 | Outpatient (RCR) | payer OTHER, SELFPAY ==
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
--- NOTE | 2024-06-29 08:36 | MHC.PT.DC ---
[facility] [place] [facility] [place] [facility] [place] [facility] [address] Mary Anne Alas [address] [phone] F: [phone] F: [phone] F: [phone] F: [phone] Physical Therapy Discharge Report Diagnosis: R shoulder tendinitis Date of Surgery: NA Date of Evaluation: 05/17/24 Date of Discharge: 06/29/24 Treatments to Date: 9 Cancellations to Date: 0 No Shows to Date: 0 Discharge Status: Achieved Goals Improved Function Independent with HEP Discharge Summary: Vania attended 9 PT and is independent with all HEP. She has achieved all goals set for her. She is therefore being d/c from PT. Electronically signed by: Eliana Kebede PT DPT Please sign and return to therapist. Thank you for your referral.
== END 2024-06-29 08:36 | disposition home or self-care (01) ==
LOC: HO.PT 11:00
PROVIDERS: PCP Nurse Practitioner Family; Visit Provider Physician Assistant
DX: M77.8 Other enthesopathies, not elsewhere classified (principal)
CPT/HCPCS: 97110; 97140; 97162; 97530

== ENCOUNTER 2024-06-28 08:20 | Outpatient (REF) | payer OTHER, SELFPAY ==
--- NOTE | ~2024-06-28 | XR_ITS ---
EXAMINATION: XR ELBOW 3 VIEWS LEFT HISTORY: M25.522 - Pain in left elbow COMPARISON: Comparison is made with the prior examination dated 05/05/2024. FINDINGS: Three views of the left elbow are submitted. Osseous mineralization is normal. A fracture in the region of the coronoid process of the ulna is unchanged in appearance. The fracture line is not well visualized. The joint spaces are preserved. The soft tissues are unremarkable. XR/XR elbow LT min 3V IMPRESSION: Fracture of the coronoid process of the ulna without change. Electronically signed by: Fernando Rich MD 06/28/2024 11:35 AM EDT
--- OUTSIDE RECORDS SUMMARY | 2024-06-29 08:36 | XMS_ITS | Clinical Summary ---
Author Organization [facility] Address [address] [place] [address] Care Team Providers Care Stevedore Hold Name Role Phone Elly Jean MD Primary [...] age to complete this topic Care Teams Stevedore Hold Relationship Specialty Start Date End Date Elly Jean MD [address] [place] [address] PCP - General Internal Medicine 03/28/16
--- OUTSIDE RECORDS SUMMARY | 2024-06-29 08:36 | XMS_ITS | Encounter Summary ---
Author Organization [employer] [facility] Address [address] [facility] 7t [place] [address] Care Team Providers Care Studio Camera Operator Name Role Phone Unavailable Primary Care [...]
--- OUTSIDE RECORDS SUMMARY | 2024-06-29 08:36 | XMS_ITS | Clinical Summary ---
Author Organization [employer] Address [address] [facility] [address]t [place] [address] Care Team Providers Care Ic Designer Standard Cells Name Role Phone Unavailable Primary Care Provider [...] Recently Relevant to Health Maintenance Insurance DELTA [facility] Address: [place] [address]
== END 2024-06-28 08:21 | disposition home or self-care (01) ==
LOC: HO.HOSX 08:20
PROVIDERS: Visit Provider Physician Assistant
DX: M25.522 Pain in left elbow (principal)
CPT/HCPCS: 73080

== ENCOUNTER 2024-06-28 08:22 | Outpatient (AMB) | payer OTHER, SELFPAY ==
--- NOTE | 2024-06-28 08:34 | MHC.OFFVIS ---
Vital Signs 06/28/24 08:40 Height 4 ft 11 in Weight 144 lb BMI 29.1 Handedness Right Intake Visit Reasons: OV- left elbow fx, DOI 03/28/24 w/ XR Intake Note: Vania is a 38 year old right hand dominant female who presents today for a follow up of her left elbow DOI 03/28/24. Patient reports she is still going to occupational therapy which is giving her relief. She states when she is over working her arm she feels a sharp pain in her elbow and can not sleep at night. Patient is feeling better today but with some soreness. Allergies Seasonal Allergies Allergy (Intermediate, Verified 06/28/24 08:34) Congestion Medication List - Last Reconciled 06/28/24 by Luis Saldivar PA-C cetirizine (Zyrtec) 10 mg PO DAILY PRN fluticasone propionate 50 mcg/actuation 2 SPRAY INTRANASALLY DAILY FOR 1 MONTH ADMINISTER INTO EACH NOSTRIL gabapentin 100 mg PO TID PRN 7 days ibuprofen 800 mg PO Q8H PRN HPI HPI OV- left elbow fx, DOI 03/28/24 w/ XR: Details: 38 yo female returns to the office today f/u left coronoid fx. Continues to do OT. She continues to have some discomfort with daily activities. She states she was gardening and putting seeds in pots and she felt some discomfort the following day. She has also attempted to perform other daily activities with notable weakness on the left compared to contralateral side. She continues to work with occupational therapy and remains out of work. [facility] Medical History Cervicalgia Right ankle tendonitis Back pain Surgical History History of tubal ligation Family History Father Medical history unknown Mother Alive and well Maternal Grandmother Lung cancer Social History Household Members: Family Both parents involved: No Caregiver staying overnight: No Housing: House Are you a primary long term care administrator to a significant other at home: No Do you presently have visiting nurse or other home services: No 75 years or older and lives alone: No Alcohol intake: current Alcohol intake frequency: holidays/special occasions only Alcohol type: hard liquor Patient Tobacco Use Status: Never used Tobacco e-Cigarette/Vaping Use: Never Used service: No 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al status: employed 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: [email or web address] worker 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al exposures/hazards: No Cognitive needs: No Hearing needs: No Vision needs: No Review of Systems Const All systems reviewed & are unremarkable except as noted in HPI and below Physical Exam Vital Signs: BMI result Body Mass Index 29.1 Const General: cooperative and no acute distress Orientation/consciousness: patient oriented x3 Resp Effort & Inspection: normal respiratory effort and able to speak in complete sentences Cardio Peripheral pulses: Peripheral pulses 2+ throughout Neuro General: patient oriented x3 Extrem Other: Left elbow normal to inspection no swelling or tenderness to palpation. She has full flexion but lacking 5 degrees of extension. She can supinate and pronate without pain. Neurovascularly intact. Results Reviewed Results Reviewed: X-rays of the left elbow obtained in the office today and reviewed by me show well healed fracture Assessment & Plan Assessment & Plan (1) Left elbow fracture: Code(s): S42.402A - Unspecified fracture of lower end of left humerus, initial encounter for closed fracture Category: Medical Qualifiers: Encounter type: initial encounter Fracture type: closed Qualified Code(s): S42.402A - Unspecified fracture of lower end of left humerus, initial encounter for closed fracture Plan: She will continue to work with occupational therapy to regain her strength. I would like her to increase activities as tolerated with caution to not overdo these activities causing worsening pain. She will continue to remain out of work as she is unable to perform her daily job duties given the amount of weight she needs to carry. I will see her back in 6 weeks, sooner if needed. Orders: Orders XR elbow LT min 3V Today M25.522 - Pain in left elbow OT Evaluation and Treatment Today S42.402A - Unspecified fracture of lower end of left humerus, initial encounter for closed fracture Coding Level of Care Code Est Pt Level 3 (25650) Complex EM visit Add On G2211 Diagnoses Closed fracture of left elbow, initial encounter S42.402A Encounter type: initial encounter Fracture type: closed
[2024-06-28 08:40] VITALS: BMI 29.1
--- OUTSIDE RECORDS SUMMARY | 2024-06-28 08:40 | XMS_ITS | Clinical Summary ---
Author Organization [employer] Address [address] [facility] [address] [place] [address] Care Team Providers Care Grounds Restoration Specialist Name Role Phone Unavailable Primary Care Provider Unavailabl e Allergies No known active allergies Medications fluticasone (Flonase) 50 MCG/ACT nasal spray USE 1 SPRAY IN EACH NOSTRILS TWICE A DAY NEEDED Active ibuprofen 800 MG tablet 10/03/2023 Active Immunizations Name Administration Dates Next Due Pfizer [...] Cancer Screening 11/22/2015 HPV/Cotest 11/22/2015 COVID-19 Vaccine (2023-2 5 season) 2023 04/19/2022 Influenza Vaccine (#1) [...] Recently Relevant to Health Maintenance Insurance DELTA [facility]
--- OUTSIDE RECORDS SUMMARY | 2024-06-28 08:40 | XMS_ITS | Data Portability ---
Author Organization [place] [facility] Address [address] [facility] [place] [address] Care Team Providers Care Superintendent Landfill Operations Name Role Phone MARIA DEL CARMEN CHAVES Primary Care Provider [phone] ATILIO MILES Referring Provider [phone] Assessment Encounter Date Assessment Date Assessment LastModified [...] booked for the same. She needs a distribution driver on the day of the procedure. [...] booked for the same. She needs a distribution driver on the day of the procedure. [...] By Organization Details Last Modified Time 06/07/2014 [id number] She was advised against bed rest lasting longer than four days and to continue activities as tolerated. [email or web address] Not available 06/07/2014 15:07:21 09/05/2014 [id number] She was advised against bed rest lasting longer than four days and to continue activities as tolerated. [email or web address] Not available 09/05/2014 14:48:47 09/19/2014 84162 She was advised against bed rest lasting longer than four days and to continue activities as tolerated. [email or web address] Not available 09/20/2014 11:06:04 10/17/2014 80809 She was advised against bed rest lasting longer than four days and to continue activities as tolerated. [email or web address] Not available 10/17/2014 15:51:03 11/02/2014 [id number] She was advised against bed rest lasting longer than four days and to continue activities as tolerated. [email or web address] Not available 11/08/2014 17:23:13 Reason for Referral None Reported. Results Created Date Observation Date Name Description Value Unit Range Abnormal Flag Note LastModifiedBy Organization Detail LastModifiedTime 05/24/19 15 05/22/2014 MRI, lumba r spine No observ ation record ed. [email or web address] [address] [facility], [place], [address], 06/02/2014 14:47:24 Result Notes None recorded. Problems Name Problem SNOMED Code Status Onset Date Resolution Date Notes Provider Name and Address Organization Details Recorded Time Displacement of lumbar intervertebral disc without myelopathy 20011130 Active Morenita cassidy MD [address] [place] [address] , [address] [place] [address] [place], [address], [place] [facility] 5 17:24:33 Lumbosacral radiculitis 32783463 Active Morenita cassidy MD [address] [facility] , [address], [place], [address], [place] [facility] 5 17:24:33 Muscle pain 13753731 Active Morenita cassidy MD [address] [facility] , [address], [facility] [place], [address], [place] [facility] 5 17:24:33 Piriformis syndrome 833525210 Active Morenita cassidy MD [address] [facility] , [address], [facility], [address], [place] [facility] 5 17:24:33 Problem Notes None recorded. Procedures Surgical History Date Name Laterality Status Provider Name and Address Organization Details Recorded Time 5 Piriformis injection under fluroscopic guidance. completed Morenita Gallegos MD [address] [facility] , [address], [place], [address], [place] [facility] 11/08/2014 17:24:33 5 Piriformis injection under fluroscopic guidance. completed Morenita Gallegos MD [address] [facility] , [address], [place], [address], [place] [facility] 09/20/2014 11:08:34 5 Trigger Point Injections under ultrasound guidance completed Morenita Gallegos MD [address] [facility] [facility] , [address], [place], [address], [place] [facility] 09/05/2014 14:51:05 5 Trigger Point Injections under ultrasound guidance completed Morenita Gallegos MD [address] [facility] [facility] , [address], [place], [address], [place] [facility] 06/07/2014 15:11:16 Imaging Results Imaging Date Name Status LastModified by [facility] Details LastModified Time 05/22/2014 MRI, lumbar spine completed [facility] ([facility] [address], [place], [address], 06/02/2014 14:47:24 Procedure Notes None recorded. Medical [...] /min 131 mm[Hg] 85 mm[Hg] Carlota Vasquez [place] [facility] 5 14:24:17 Date Recorded Oxygen saturation Oxygen saturation in Arterial blood by Pulse oximetry Heart rate Systolic blood pressure Diastolic blood pressure Provider Name and Address Organization Details Last Updated DateTime 5 98 % 98 % 83 /min 119 mm[Hg] 64 mm[Hg] Carlota Vasquez [place] [facility] 5 14:21:14 Date Recorded Oxygen saturation Oxygen saturation in Arterial blood by Pulse oximetry Heart rate Systolic blood pressure Diastolic blood pressure Provider Name and Address Organization Details Last Updated DateTime 5 99 % 99 % 78 /min 117 mm[Hg] 79 mm[Hg] Carlota Vasquez [place] [facility] 5 11:14:17 Date Recorded [...] Is Your Level Of Alcohol Consumption? Occasional [id number] Information not available 12/10/2019 Are You Currently Employed? Yes [employer] [id number] Information not available 12/10/2019 Which Illicit Or Recreational Drugs Have You Used? 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 With Others , 3 Sons And Daughter Information not available 05/19/2014 Marital Status Informatio n not available 05/19/2014 Sex: Unknown Functional Status None recorded. Mental Status None recorded. Family History Nothing Reported. Medical History Condition Response Migrane Y Anxiety Disorder Y Gynecological HistoryNo gynecological history recorded. Obstetrics History GPAL:G 0 P 0 0 0 0 Past Encounters Encounter ID Performer Location Encounter Start Date Encounter Closed Date Diagnosis/Indication Diagnosis SNOMED-CT Code Diagnosis ICD10 Code Diagnosis Note [id number] Morenita Gallegos MD PAIN OFFICE [address] [facility] [place] [address] 05/19/2014 13:49:10 05/20/2014 12:10:41 Displacement of lumbar intervertebral disc without myelopathy 11684290 Lumbosacra l radiculitis 11096536 [id number] Morenita Gallegos MD PAIN OFFICE [address] [place] [address] 06/02/2014 13:32:46 06/02/2014 14:50:17 Displacement of lumbar intervertebral disc without myelopathy 38642925 Lumbosacra l radiculitis 78109888 [id number] Morenita Gallegos MD PAIN OFFICE [address] [place] [address] 06/07/2014 13:58:20 06/07/2014 15:12:34 Muscle pain 88984751 Displaceme nt of lumbar intervertebral disc without myelopathy 64415456 Lumbosacra l radiculitis 58798635 [id number] Morenita Gallegos MD PAIN OFFICE [address] [address] 09/05/2014 14:10:43 09/05/2014 14:51:52 Muscle pain 70657126 Displaceme nt of lumbar intervertebral disc without myelopathy 02531859 Lumbosacra l radiculitis 67186231 [id number] Morenita Gallegos MD PAIN OFFICE [address] [place] [address] 09/19/2014 11:05:48 09/20/2014 11:09:21 Muscle pain 96812671 Displaceme nt of lumbar intervertebral disc without myelopathy 86473838 Lumbosacra l radiculitis 30199771 Piriformis syndrome 324283318 [id number] Morenita Gallegos MD PAIN OFFICE [address] [place] [address] 10/17/2014 14:56:34 10/17/2014 15:58:26 Muscle pain 11743926 Displaceme nt of lumbar intervertebral disc without myelopathy 35119221 Piriformis syndrome 566965219 Lumbosacra l radiculitis 37025090 [id number] Morenita Gallegos MD PAIN OFFICE [address] [place] [address] 11/02/2014 13:33:44 11/08/2014 17:26:35 Muscle pain 51936675 Displaceme nt of lumbar intervertebral disc without myelopathy 84405715 Piriformis syndrome 318021167 Lumbosacra l radiculitis 55482637 Health Concerns Section Related Observation LastModified by Organization Detai ls LastModified Time None Recorded Concern Status LastModified by Organization Details LastModified Time None Recorded Advance Directives Directive None Recorded Payers Encounter Date Sequence Insurance Name Policy Number Policy Ramsay Covered Member ID Ramsay Member ID Guarantor Name 06/07/2014 1 [facility] (MEDICAID HMO) [id number] Lyndatracyleeann Oswaldo [id number] Vilmarie Guevara 09/05/2014 1 [facility] - COMMON[facility] (MEDICAID HMO) [id number] Vilmarie Guevara [id number] Vilmarie Guevara 09/19/2014 1 [facility] (MEDICAID HMO) [id number] Vilmarie Guevara [id number] Vilmarie Guevara 10/17/2014 1 [facility] (MEDICAID HMO) [id number] Vilmarie Guevara [id number] Vilmarie Guevara 11/02/2014 1 [facility] - COMMON[facility]ALTH (MEDICAID HMO) [id number] Vilmarie Guevara [id number] Vilmarie Guevara Notes Date Note Type Note Provider Name and Address Organization Details Recorded Time 06/07/2014 text/html She is here for a trial of trigger point injections in the paraspinal muscles of the lumbar region under ultrasound guidance Morenita Gallegos MD [address] [place] [address], [place], [address], [facility] 06/13/2014 09:04:47 09/05/2014 text/html She [...] or bowel incontinence. Morenita Gallegos MD [address] , [address], [place], [address], [facility] 09/07/2014 16:08:57 09/19/2014 text/html She is here for a left piriformis muscle injection under fluoroscopic guidance. She reports no pain benefit with last trigger point injection. Morenita Gallegos MD [address] [facility] , [address], [place], [address], [facility] 09/26/2014 09:35:42 10/17/2014 text/html She [...] or bowel incontinence. Morenita Gallegos MD [address] [facility] , [address], [place], [address], [facility] 10/19/2014 09:02:17 11/02/2014 text/html She is here for a left piriformis muscle injection under fluoroscopic guidance. Morenita Gallegos MD [address] [facility] , [address], [place], [address], [facility] 11/09/2014 10:30:25 OBGyn Episode No OBEpisode recorded.
--- OUTSIDE RECORDS SUMMARY | 2024-06-28 08:40 | XMS_ITS | Clinical Summary ---
Author Organization [employer] Address [address] [place] [address] Care Team Providers Care Licensed Practical Nurse Instructor Name Role Phone Elly Jean MD Primary [...] Vaccine (2023-2 5 season) 2023 Influenza Vaccine (Season Ended) 2024 HIB Vaccines Aged Out No longer eligi [...] age to complete this topic Meningococcal B Vaccine Aged Out No l onger eligible based on patient's age to complete [...] age to complete this topic Care Teams Licensed Practical Nurse Instructor Relationship Specialty Start Date End Date Elly Jean MD [address] [place] [address] PCP - General Internal Medicine 03/28/16
--- OUTSIDE RECORDS SUMMARY | 2024-06-28 08:40 | XMS_ITS | Encounter Summary ---
Author Organization [facility] Address [address] [facility] 7t [place] [address] Care Team Providers Care Shipping And Receiving Operator Name Role Phone Unavailable Primary Care Provider [...]
== END 2024-06-28 08:55 | disposition home or self-care (01) ==
LOC: HO.HOS 08:23
PROVIDERS: PCP Nurse Practitioner Family; Visit Provider Physician Assistant
DX: S42.402A Unspecified fracture of lower end of left humerus, initial encounter for closed fracture (principal)
CPT/HCPCS: 99213; G2211

== ENCOUNTER → 2024-06-28 08:24 | Outpatient (BNV) | payer OTHER, SELFPAY | PROVIDERS: Visit Provider Radiology Diagnostic Radiology | DX: S52.042A Displaced fracture of coronoid process of left ulna, initial encounter for closed fracture (principal) | CPT/HCPCS: 73080 ==

== ENCOUNTER 2024-06-30 09:38 | Outpatient (REF) | payer OTHER, SELFPAY ==
--- NOTE | 2024-06-30 09:41 | EMG_ITS ---
Chief complaint: Right shoulder pain/scapular pain and numbness in 4th and 5th digits, depending on position. Reason for referral: Evaluate for ulnar neuropathy Referred by: Luis LEIVA Procedure done: Right upper extremity NCS/EMG Precautions and/or limitations: None The limb temperature was monitored continuously and remained between 32-36 degrees C during the performance of the NCS. Nerve Conduction Studies Anti Sensory Summary Table ?Stim Site NR Onset (ms) Norm Onset (ms) Peak (ms) Norm Peak (ms) O-P Amp (?V) Norm O-P Amp Site1 Site2 Delta-0 (ms) Dist (cm) Ben (m/s) Norm Ben (m/s) Right Median Anti Sensory (2nd Digit) Wrist ? 2.4 3.1 <3.6 13.4 >10 Wrist 2nd Digit 2.4 14.0 58 Right Radial Anti Sensory (Thumb) Forearm ? 1.5 2.0 <3.1 38.3 Forearm Thumb 1.5 0.0 ? 1.7 2.1 49.6 Right Ulnar Anti Sensory (5th Digit) Wrist ? 2.4 3.0 <3.7 39.0 >15.0 Wrist 5th Digit 2.4 14.0 58 Motor Summary Table ?Stim Site NR Onset (ms) Norm Onset (ms) O-P Amp (mV) Norm O-P Amp iAmp (mV) Amp (1st) (%) Site1 Site2 Delta-0 (ms) Dist (cm) Ben (m/s) Norm Ben (m/s) Right Median Motor (Abd Poll Brev) Wrist ? 3.0 <3.9 8.3 >4.5 9.5 100.0 Elbow Wrist 3.3 18.0 55 >45 Elbow ? 6.3 8.8 9.9 106.0 Right Ulnar Motor (Abd Dig Minimi) Wrist ? 2.5 <3.0 11.5 >5 14.7 100.0 B Elbow Wrist 2.7 15.5 57 >45 B Elbow ? 5.2 10.0 12.7 87.0 A Elbow B Elbow 1.4 10.0 71 >45 A Elbow ? 6.6 10.5 13.6 91.3 EMG ?Side Muscle Nerve Root Ins Act Fibs Psw Amp Dur Poly Recrt Int Pat Comment Right 1stDorInt Ulnar C8-T1 Nml Nml Nml Nml Nml 0 Nml Complete Right FlexCarRad Median C6-7 Nml Nml Nml Nml Nml 0 Nml Complete Right Biceps Musculocut C5-6 Nml Nml Nml Nml Nml 0 Nml Complete Right Triceps Radial C6-7-8 Nml Nml Nml Nml Nml 0 Nml Complete Right Deltoid Axillary C5-6 Nml Nml Nml Nml Nml 0 Nml Complete Paraspinal EMG ?Side Muscle Nerve Root Ins Act Fibs Psw Comment Right Cervical Upper Rami Nml Nml Nml Right Cervical Mid Rami Nml Nml Nml Right Cervical Lower Rami Nml Nml Nml FINDINGS: All motor and sensory nerves tested showed normal latencies, amplitudes and conduction velocities. Concentric needle EMG was performed in selected muscles of the right upper extremity and cervical paraspinals. Study did not reveal signs of electric abnormalities as shown in the table above. IMPRESSION: 1. This is a normal study. 2. There is no electrodiagnostic evidence for peroneal neuropathy, tibial neuropathy, lumbosacral plexopathy, lumbar radiculopathy, or peripheral neuropathy. Thank you for your kind referral. Leah Fang MD, [place] Board Certified, [place] Board of Physical Medicine and Rehabilitation (ABPMR) Board Certified, [place] Board of Electrodiagnostic Medicine (ABEM) [place] [id number] [facility]
--- OUTSIDE RECORDS SUMMARY | 2024-06-30 10:30 | XMS_ITS | Encounter Summary ---
Author Organization [employer] [facility] Address [address] [facility] 7t [place] [address] Care Team Providers Care Sdet Name Role Phone Unavailable Primary Care Provider [...]
--- OUTSIDE RECORDS SUMMARY | 2024-06-30 10:30 | XMS_ITS | Clinical Summary ---
Author Organization [employer] Address [address] [facility] 7t [place] [address] Care Team Providers Care Child Care Center Administrator Name Role Phone Unavailable Primary Care Provider [...] Recently Relevant to Health Maintenance Insurance DELTA [facility]
--- OUTSIDE RECORDS SUMMARY | 2024-06-30 10:30 | XMS_ITS | Clinical Summary ---
Author Organization [facility] Address [address] [place] [address] Care Team Providers Care Radio Intelligence Operator Name Role Phone Elly Jean MD Primary [...] age to complete this topic Care Teams Radio Intelligence Operator Relationship Specialty Start Date End Date Elly Jean MD [address] [place] [address] PCP - General Internal Medicine 03/28/16
--- OUTSIDE RECORDS SUMMARY | 2024-06-30 10:30 | XMS_ITS | Data Portability ---
Author Organization ID - Pain Managem ent, PAIN OFFICE Address [address] [facility],[address] [place] [address] Care Team Providers Care Trade Show Manager Name Role Phone MARIA DEL CARMEN CHAVES Primary Care Provider [phone] ATILIO MILES Referring Provider [phone] Assessment Encounter Date Assessment Date Assessment LastModified [...] booked for the same. She needs a highway truck driver on the day of the [...] booked for the same. She needs a highway truck driver on the day of the [...] By Organization Details Last Modified Time 06/07/2014 [id number] She was advised against bed rest lasting longer than four days and to continue activities as tolerated. [email or web address] Not available 06/07/2014 15:07:21 09/05/2014 [id number] She was advised against bed rest lasting longer than four days and to continue activities as tolerated. [email or web address] Not available 09/05/2014 14:48:47 09/19/2014 [id number] She was advised against bed rest lasting longer than four days and to continue activities as tolerated. [email or web address] Not available 09/20/2014 11:06:04 10/17/2014 [id number] She was advised against bed rest lasting longer than four days and to continue activities as tolerated. [email or web address] Not available 10/17/2014 15:51:03 11/02/2014 [id number] She was advised against bed rest lasting longer than four days and to continue activities as tolerated. [email or web address] Not available 11/08/2014 17:23:13 Reason for Referral None Reported. Results Created Date Observation Date Name Description Value Unit Range Abnormal Flag Note LastModifiedBy Organization Detail LastModifiedTime 05/24/19 15 05/22/2014 MRI, lumba r spine No observ ation record ed. [facility] ([facility]) [address] [facility], [place], [address], 06/02/2014 14:47:24 Result Notes None recorded. Problems Name Problem SNOMED Code Status Onset Date Resolution Date Notes Provider Name and Address Organization Details Recorded Time Displacement of lumbar intervertebral disc without myelopathy 20011130 Active Morenita cassidy MD [address] [place] [address] , [address] [place] [address] [place], [address], [place] [facility] 5 17:24:33 Lumbosacral radiculitis 82166632 Active Morenita cassidy MD [address] [facility] , [address], [place], [address], [place] [facility] 5 17:24:33 Muscle pain 15898132 Active Morenita cassidy MD [address] [facility] , [address], [facility] [place], [address], [place] [facility] 5 17:24:33 Piriformis syndrome 921960635 Active Morenita cassidy MD [address] [facility] , [address], [facility] [place], [address], [place] [facility] 5 17:24:33 Problem Notes None recorded. Procedures Surgical History Date Name Laterality Status Provider Name and Address Organization Details Recorded Time 5 Piriformis injection under fluroscopic guidance. completed Morenita Gallegos MD [address] [facility] , [address], [place], [address], [place] [facility] 11/08/2014 17:24:33 5 Piriformis injection under fluroscopic guidance. completed Morenita Gallegos MD [address] [facility] , [address], [place], [address], [place] [facility] 09/20/2014 11:08:34 5 Trigger Point Injections under ultrasound guidance completed Morenita Gallegos MD [address] [facility] , [address], [place], [address], [place] [facility] 09/05/2014 14:51:05 5 Trigger Point Injections under ultrasound guidance completed Morenita Gallegos MD [address] [facility] , [address], [place], [address], [place] [facility] 06/07/2014 15:11:16 Imaging Results Imaging Date Name Status LastModified by [facility] Details LastModified Time 05/22/2014 MRI, lumbar spine completed [facility] ([facility]) [address], [place], [address], 06/02/2014 14:47:24 Procedure Notes None recorded. Medical [...] /min 131 mm[Hg] 85 mm[Hg] Carlota Vasquez [place] - [facility] 5 14:24:17 Date Recorded Oxygen saturation Oxygen saturation in Arterial blood by Pulse oximetry Heart rate Systolic blood pressure Diastolic blood pressure Provider Name and Address Organization Details Last Updated DateTime 5 98 % 98 % 83 /min 119 mm[Hg] 64 mm[Hg] Carlota Vasquez [place] - Pain Management 5 14:21:14 Date Recorded Oxygen saturation Oxygen saturation in Arterial blood by Pulse oximetry Heart rate Systolic blood pressure Diastolic blood pressure Provider Name and Address Organization Details Last Updated DateTime 5 99 % 99 % 78 /min 117 mm[Hg] 79 mm[Hg] Carlota Vasquez [place] - [facility] 5 11:14:17 Date Recorded [...] Is Your Level Of Alcohol Consumption? Occasional [id number] Information not available 12/10/2019 Are You Currently Employed? Yes [employer] [id number] Information not available 12/10/2019 Which Illicit Or Recreational Drugs Have You Used? 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 [id number] Information not available 12/10/2019 Live Alone Or [...] SNOMED-CT Code Diagnosis ICD10 Code Diagnosis Note [id number] Morenita Gallegos MD PAIN OFFICE [address] [employer] [facility] [place] [address] 05/19/2014 13:49:10 05/20/2014 12:10:41 Displacement of lumbar intervertebral disc without myelopathy 03476398 Lumbosacra l radiculitis 80301103 32574 Morenita Gallegos MD PAIN OFFICE [address] [place] [address] 06/02/2014 13:32:46 06/02/2014 14:50:17 Displacement of lumbar intervertebral disc without myelopathy 07628065 Lumbosacra l radiculitis 57343676 29859 Morenita Gallegos MD PAIN OFFICE [address] [place] [address] 06/07/2014 13:58:20 06/07/2014 15:12:34 Muscle pain 59854939 Displaceme nt of lumbar intervertebral disc without myelopathy 91149120 Lumbosacra l radiculitis 23067211 92433 Morenita Gallegos MD PAIN OFFICE [address] [place] [address] 09/05/2014 14:10:43 09/05/2014 14:51:52 Muscle pain 60021514 Displaceme nt of lumbar intervertebral disc without myelopathy 73446452 Lumbosacra l radiculitis 48734769 02062 Morenita Gallegos MD PAIN OFFICE [address] [place] [address] 09/19/2014 11:05:48 09/20/2014 11:09:21 Muscle pain 00447866 Displaceme nt of lumbar intervertebral disc without myelopathy 25980989 Lumbosacra l radiculitis 35663230 Piriformis syndrome 941417700 95366 Morenita Gallegos MD PAIN OFFICE [address] [place] [address] 10/17/2014 14:56:34 10/17/2014 15:58:26 Muscle pain 27784595 Displaceme nt of lumbar intervertebral disc without myelopathy 06469716 Piriformis syndrome 500259249 Lumbosacra l radiculitis 49644370 09026 oMrenita Gallegos MD PAIN OFFICE [address] [place] [address] 11/02/2014 13:33:44 11/08/2014 17:26:35 Muscle pain 84785048 Displaceme nt of lumbar intervertebral disc without myelopathy 22570076 Piriformis syndrome 280306878 Lumbosacra l radiculitis 07291538 Health Concerns Section Related Observation LastModified by Organization Detai ls LastModified Time None Recorded Concern Status LastModified by Organization Details LastModified Time None Recorded Advance Directives Directive None Recorded Payers Encounter Date Sequence Insurance Name Policy Number Policy Rmasay Covered Member ID Ramsay Member ID Guarantor Name 06/07/2014 1 [facility] (MEDICAID HMO) [id number] Lyndatracyleeann Oswaldo [id number] Vilmarie Guevara 09/05/2014 1 [facility] (MEDICAID HMO) [id number] Vilmarie Guevara [id number] Vilmarie Guevara 09/19/2014 1 [facility] (MEDICAID HMO) [id number] Vilmarie Guevara [id number] Vilmarie Guevara 10/17/2014 1 [facility] (MEDICAID HMO) [id number] Vilmarie Guevara [id number] Vilmarie Guevara 11/02/2014 1 [facility] (MEDICAID HMO) [id number] Vilmarie Guevara [id number] Vilmarie Guevara Notes Date Note Type Note Provider Name and Address Organization Details Recorded Time 06/07/2014 text/html She is here for a trial of trigger point injections in the paraspinal muscles of the lumbar region under ultrasound guidance Morenita Gallegos MD [address] [place] [address], [place], [address], [facility] 06/13/2014 09:04:47 09/05/2014 text/html [...] or bowel incontinence. Morenita Gallegos MD [address] , [address], [place], [address], [facility] 09/07/2014 16:08:57 09/19/2014 text/html She is here for a left piriformis muscle injection under fluoroscopic guidance. She reports no pain benefit with last trigger point injection. Morenita Gallegos MD [address] [facility] , [address], [place], [address], [facility] 09/26/2014 09:35:42 10/17/2014 text/html She [...] or bowel incontinence. Morenita Gallegos MD [address] [facility] , [address], [place], [address], [facility] Management 10/19/2014 09:02:17 11/02/2014 text/html She is here for a left piriformis muscle injection under fluoroscopic guidance. Morenita Gallegos MD [address] [facility] , [address], [place], [address], [facility] Management 11/09/2014 10:30:25 OBGyn Episode No OBEpisode recorded.
== END 2024-06-30 09:39 | disposition home or self-care (01) ==
LOC: HO.NEURO 09:38
PROVIDERS: PCP Nurse Practitioner Family; Visit Provider Physician Assistant
DX: R20.0 Anesthesia of skin (principal); R20.2 Paresthesia of skin
CPT/HCPCS: 95886; 95909

== ENCOUNTER → 2024-06-30 09:41 | Outpatient (BNV) | payer OTHER, SELFPAY | PROVIDERS: PCP Nurse Practitioner Family; Visit Provider Physical Medicine & Rehabilitation | DX: R20.2 Paresthesia of skin (principal); R20.0 Anesthesia of skin; M25.511 Pain in right shoulder | CPT/HCPCS: 95886; 95909 ==

== ENCOUNTER 2024-07-22 07:50 | Outpatient (AMB) | payer OTHER, SELFPAY ==
--- OUTSIDE RECORDS SUMMARY | 2024-07-22 07:52 | XMS_ITS | Data Portability ---
Author Organization [place] - Pain Managem ent, PAIN OFFICE Address [address] [facility] [place] [address] Care Team Providers Care Patcher Bowling Ball Name Role Phone MARIA DEL CARMEN CHAVES Primary Care Provider [phone] ATILIO MILES Referring Provider Assessment Encounter Date Assessment Date Assessment LastModified by Organization Details LastModified Time 06/07/2014 06/07/2014 Vania mercedes is a 28year old woman with complaints of left sided low back pain which is radiating occasionally into the left lower extremity. On exam, she has pain on flexion . Trigger points are elicited in the left paraspinal muscles in the lower lumbar region. MRI Lumbar spine is within normal limits.She is here fora trial of trigger point injection in the left paraspinal muscles under ultrasound guidance. The risks and benefits of the procedure were discussed and she wishes to proceed . She has continued pain in her left lower extremity with numbness. EMG/NCV study can be considered if there is no improvement in her symptoms after the injection. She will call for a follow up appointment. [email or web address] Not available 06/07/2014 15:09:04 09/05/2014 09/05/2014 Alf is a 28year old woman with complaints of left sided low back pain which is radiating occasionally into the left lower extremity. On exam, she has pain on flexion . Trigger points are elicited in the left paraspinal muscles in the lower lumbar region. MRI Lumbar spine is within normal limits.She is here forarepeat trigger point injection in the left paraspinal muscles under ultrasound guidance. The risks and benefits of the procedure were discussed and she wishes to proceed . She has continued pain in her left lower extremity with numbness. I recommend a trial of left piriformis muscle injection under fluoroscopic guidance. The risks and benefits of the procedure were discussed in detail. She wishes to proceed. An appointment has been booked for the same. She needs a stock driver on the day of the procedure. I recommend an EMG/NCV study. [email or web address] Not available 09/07/2014 16:08:32 09/19/2014 09/19/2014 Alf is a 28year old woman with complaints of left sided low back pain which is radiating occasionally into the left lower extremity. She has continued pain in her left lower extremity with numbness.She is here fora trial of left piriformis muscle injection under fluoroscopic guidance. The risks and benefits of the procedure were discussed in detail. She wishes to proceed. She will follow up in four weeks [email or web address] Not available 09/20/2014 11:08:34 10/17/2014 10/17/2014 Alf is a 28year old woman with complaints of left sided low back pain which is radiating occasionally into the left lower extremity. She has continued pain in her left lower extremity with numbness.She is here fora follow up after a trial of left piriformis muscle injection under fluoroscopic guidance. She reports good pain benefit for one month with return of pain. I recommend a repeat left piriformis muscle injection under fluoroscopic guidance. The risks and benefits of the procedure were discussed in detail. She wishes to proceed. An appointment has been booked for the same. She needs a stock driver on the day of the procedure. [email or web address] Not available 10/17/2014 15:57:59 11/02/2014 11/02/2014 Alf is a 28year old woman with complaints of left sided low back pain which is radiating occasionally into the left lower extremity. She has continued pain in her left lower extremity with numbness.She is here fora trial of left piriformis muscle injection under fluoroscopic guidance. The risks and benefits of the procedure were discussed in detail. She wishes to proceed. She will follow up as needed. [email or web address] Not available 11/08/2014 17:24:33 Plan of Treatment [...] By Organization Details Last Modified Time 06/07/2014 [id number] She was advised against bed rest lasting longer than four days and to continue activities as tolerated. [email or web address] Not available 06/07/2014 15:07:21 09/05/2014 [id number] She was advised against bed rest lasting longer than four days and to continue activities as tolerated. [email or web address] Not available 09/05/2014 14:48:47 09/19/2014 [id number] She was advised against bed rest lasting longer than four days and to continue activities as tolerated. [email or web address] Not available 09/20/2014 11:06:04 10/17/2014 [id number] She was advised against bed rest lasting longer than four days and to continue activities as tolerated. [email or web address] Not available 10/17/2014 15:51:03 11/02/2014 [id number] She was advised against bed rest lasting longer than four days and to continue activities as tolerated. [email or web address] Not available 11/08/2014 17:23:13 Reason for Referral None Reported. Results Created Date Observation Date Name Description Value Unit Range Abnormal Flag Note LastModifiedBy Organization Detail LastModifiedTime 05/24/19 15 05/22/2014 MRI, lumba r spine No observ ation record ed. tmatara [facility] ([facility]) [address] [place], [address], 06/02/2014 14:47:24 Result Notes None recorded. Problems Name Problem SNOMED Code Status Onset Date Resolution Date Notes Provider Name and Address Organization Details Recorded Time Displacement of lumbar intervertebral disc without myelopathy 20011130 Yamilka cassidy MD [address] , [address], [place], [address], [facility] 5 17:24:33 Lumbosacral radiculitis 84495462 Yamilka cassidy MD [address] , [address], [facility] [place], [address], [place] - [facility] 5 17:24:33 Muscle pain 97681771 Active Morenita cassidy MD [address] , [address], [place], [address], [place] [facility] 5 17:24:33 Piriformis syndrome 736057430 Active Morenita cassidy MD [address] , [address], [place], [address], [place] [facility] 5 17:24:33 Problem Notes None recorded. Procedures Surgical History Date Name Laterality Status Provider Name and Address Organization Details Recorded Time 5 Piriformis injection under fluroscopic guidance. completed Morenita Gallegos MD [address] [facility] , [address], [place], [address], [place] [facility] 11/08/2014 17:24:33 5 Piriformis injection under fluroscopic guidance. completed Morenita Gallegos MD [address] [facility] , [address], [place], [address], [place] [facility] 09/20/2014 11:08:34 5 Trigger Point Injections under ultrasound guidance completed Morenita Gallegos MD [address] [facility] , [address], [place], [address], [place] [facility] 09/05/2014 14:51:05 5 Trigger Point Injections under ultrasound guidance completed Morenita Gallegos MD [address] [facility] , [address], [place], [address], [place] [facility] 06/07/2014 15:11:16 Imaging Results None recorded. Procedure Notes None recorded. Medical Equipment None [...] /min 131 mm[Hg] 85 mm[Hg] Carlota Vasquez AL[facility] - [facility] 5 14:24:17 Date Recorded Oxygen saturation Oxygen saturation in Arterial blood by Pulse oximetry Heart rate Systolic blood pressure Diastolic blood pressure Provider Name and Address Organization Details Last Updated DateTime 5 98 % 98 % 83 /min 119 mm[Hg] 64 mm[Hg] Carlota Vasquez AL[facility] - [facility] 5 14:21:14 Date Recorded Oxygen saturation Oxygen saturation in Arterial blood by Pulse oximetry Heart rate Systolic blood pressure Diastolic blood pressure Provider Name and Address Organization Details Last Updated DateTime 5 99 % 99 % 78 /min 117 mm[Hg] 79 mm[Hg] Carlota Vasquez [facility] - [facility] 5 11:14:17 Date Recorded Oxygen saturation Oxygen saturation in Arterial blood by Pulse oximetry Heart rate Systolic blood pressure Diastolic blood pressure Provider Name and Address Organization Details Last Updated DateTime 5 99 % 99 % 91 /min 118 mm[Hg] 60 mm[Hg] Carlota Vasquez ALIE - [facility] 5 15:31:12 Date Recorded Oxygen saturation Oxygen saturation in Arterial blood by Pulse oximetry Heart rate Systolic blood pressure Diastolic blood pressure Provider Name and Address Organization Details Last Updated DateTime 5 98 % 98 % 76 /min 105 mm[Hg] 72 mm[Hg] Carlota Vasquez [facility] - [facility] 5 13:47:40 Social History Question Answer Notes LastModified by Organizat ion Details LastModified Time Tobacco Smoking Status Never Smoker Not Available [employer] 12/10/2019 03:16:10 Which Illicit Or Recreational Drugs Have You Used? No [id number] Information not available 12/10/2019 Education 12 Some College Information not available 05/19/2014 Live Alone Or With Others? With Others , 3 Sons And Daughter Information not available 05/19/2014 Marital Status [email or web address] Informatio n not available 05/19/2014 Sex: Unknown Functional Status Question Answer Note LastModified by Organizat ion Details LastModified Time What is your level of alcohol consumption? 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 Family History Nothing Reported. Medical History Condition Response Anxiety Disorder Y Migrane Y Gynecological HistoryNo gynecological history recorded. Obstetrics History GPAL:G 0 P 0 0 0 0 Past Encounters Encounter ID Performer Location Encounter Start Date Encounter Closed Date Diagnosis/Indication Diagnosis SNOMED-CT Code Diagnosis ICD10 Code Diagnosis Note [id number] Morenita Gallegos MD PAIN OFFICE [address] [place] [address] 05/19/2014 13:49:10 05/20/2014 12:10:41 Displacement of lumbar intervertebral disc without myelopathy 12451259 Lumbosacra l radiculitis 13497566 66785 Morenita Gallegos MD PAIN OFFICE [address] [place] [address] 06/02/2014 13:32:46 06/02/2014 14:50:17 Displacement of lumbar intervertebral disc without myelopathy 77150693 Lumbosacra l radiculitis 27566536 32026 Morenita Gallegos MD PAIN OFFICE [address] [place] [address] 06/07/2014 13:58:20 06/07/2014 15:12:34 Muscle pain 42164149 Displaceme nt of lumbar intervertebral disc without myelopathy 48141343 Lumbosacra l radiculitis 70129697 93465 Morenita Gallegos MD PAIN OFFICE [address] [facility] [place] [address] 09/05/2014 14:10:43 09/05/2014 14:51:52 Muscle pain 66870850 Displaceme nt of lumbar intervertebral disc without myelopathy 45849714 Lumbosacra l radiculitis 45141614 70138 Morenita Gallegos MD SV PAIN OFFICE [address] [facility] [place] [address] 09/19/2014 11:05:48 09/20/2014 11:09:21 Muscle pain 59860631 Displaceme nt of lumbar intervertebral disc without myelopathy 23199785 Lumbosacra l radiculitis 16713118 Piriformis syndrome 081918033 91706 Morenita Gallegos MD PAIN OFFICE [address] [facility] [place] [address] 10/17/2014 14:56:34 10/17/2014 15:58:26 Muscle pain 26936363 Displaceme nt of lumbar intervertebral disc without myelopathy 50375486 Piriformis syndrome 208084342 Lumbosacra l radiculitis 20631940 78405 Morenita Gallegos MD SV PAIN OFFICE [address] [facility] [place] [address] 11/02/2014 13:33:44 11/08/2014 17:26:35 Muscle pain 78071910 Displaceme nt of lumbar intervertebral disc without myelopathy 64988050 Piriformis syndrome 212435595 Lumbosacra l radiculitis 09321808 Health Concerns Section Related Observation LastModified by Organization Detai ls LastModified Time None Recorded Concern Status LastModified by Organization Details LastModified Time None Recorded Advance Directives Directive None Recorded Payers Encounter Date Sequence Insurance Name Policy Number Policy Ramsay Covered Member ID Ramsay Member ID Guarantor Name 06/07/2014 1 [facility] [id number] Vania Chacon [id number] Vania Guevara 09/05/2014 1 [facility] [id number] Vania Guevara [id number] Vania Guevara 09/19/2014 1 [facility] [id number] Vilmarie Guevara [id number] Vilmarie Guevara 10/17/2014 1 [facility] [id number] Vilmarie Guevara [id number] Vilmarie Guevara 11/02/2014 1 [facility]) [id number] Vilmarie Guevara [id number] Vilmarie Guevara Notes Date Note Type Note Provider Name and Address Organization Details Recorded Time 06/07/2014 text/html She is here for a trial of trigger point injections in the paraspinal muscles of the lumbar region under ultrasound guidance Morenita Gallegos MD [address] [facility] , [address], [place], [address], [facility] - [facility] Management 06/13/2014 09:04:47 09/05/2014 text/html She [...] or bowel incontinence. Morenita Gallegos MD [address] [facility] , [address], [place], [address], [facility] - Pain Management 09/07/2014 16:08:57 09/19/2014 text/html She is here for a left piriformis muscle injection under fluoroscopic guidance. She reports no pain benefit with last trigger point injection. Morenita Gallegos MD [address] [facility] , [address], [place], [address], [place] - [facility] 09/26/2014 09:35:42 10/17/2014 text/html [...] or bowel incontinence. Morenita Gallegos MD [address] , [address], [place], [address], [facility] Pain Management 10/19/2014 09:02:17 11/02/2014 text/html She is here for a left piriformis muscle injection under fluoroscopic guidance. Morenita Gallegos MD [address] , [address], [place], [address], [facility] Pain Management 11/09/2014 10:30:25 OBGyn Episode No OBEpisode recorded.
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
[2024-07-22 08:10] VITALS: BP 102/68; PULSE 58; RESP 12; TEMP 36.4; O2SAT 98; BMI 29.9
== END 2024-07-22 08:34 | disposition home or self-care (01) ==
LOC: HO.HMCFM 07:51
PROVIDERS: PCP Nurse Practitioner Family; Visit Provider Nurse Practitioner Family
DX: Z00.00 Encounter for general adult medical examination without abnormal findings (principal); K21.9 Gastro-esophageal reflux disease without esophagitis; G43.009 Migraine without aura, not intractable, without status migrainosus; J30.2 Other seasonal allergic rhinitis

== ENCOUNTER → 2024-07-22 07:50 | Outpatient (BNVA) | payer OTHER, SELFPAY | PROVIDERS: PCP Nurse Practitioner Family; Visit Provider Nurse Practitioner Family | DX: Z00.00 Encounter for general adult medical examination without abnormal findings (principal); K21.9 Gastro-esophageal reflux disease without esophagitis; G43.009 Migraine without aura, not intractable, without status migrainosus; J30.2 Other seasonal allergic rhinitis | CPT/HCPCS: 96127 ==

== ENCOUNTER 2024-07-22 08:37 | Outpatient (REF) | payer OTHER, SELFPAY ==
[2024-07-22 12:09] LABS: Estimated Average Glucose 91 mg/dL; Hemoglobin A1C 104.9248 umol/L; Hemoglobin A1c % 4.8 % (<6.0); Total Hemoglobin (HGBA1C) 3585.5367 umol/L
[2024-07-22 12:53] LABS: Cholesterol 181 mg/dL (<200); HDL Cholesterol 53 mg/dL (>40); LDL Cholesterol Calculated 101 mg/dL (<100); Triglycerides 138 mg/dL (<150)
[2024-07-22 13:05] LABS: TSH reflex Free T4 1.33 uIU/mL (0.32-4.0); Vitamin D 25-OH Total 32.5 ng/mL (>30)
[2024-07-22 13:17] LABS: Folate 8.6 ng/mL (> or = 4.0); Vitamin B12 510 pg/mL (200-900)
== END 2024-07-22 08:38 | disposition home or self-care (01) ==
LOC: HO.WFDLDS 08:37
PROVIDERS: Visit Provider Nurse Practitioner Family
DX: Z00.00 Encounter for general adult medical examination without abnormal findings (principal)
CPT/HCPCS: 36415; 80061; 82306; 82607; 82746; 83036; 84443

== ENCOUNTER 2024-08-03 08:04 | Outpatient (RCR) | payer OTHER, SELFPAY ==
--- NOTE | 2024-04-16 10:18 | MHC.OT.EP ---
[address] [phone] Occupational Therapy Plan of Care Patient Name: Vania Guevara Date of Evaluation: 04/16/24 Diagnosis: Left Elbow Fx Pain Location: Low pain at rest (2/10) Sharp pain in posterior elbow (8/10) Radiates through arm and wrist at night Pain Score: 2 Pain Scale Used: Numeric (0 - 10) Aggravating Factors: Nighttime/resting, heavier lifting (avoiding lifting in general), reaching out Alleviating Factors: Ibuprofen 800 PRN, essential oils Assessment: 38 yo female slipped on black ice while going out to her chicken coop. She was seen in the ED that day and placed in elbow splint for coronoid process fx, referred to PCP and [facility]. Per ortho she will continue to use the sling for comfort and sleeping. She can come out of the sling and perform gentle ROM. No forceful movements or lifting more than a cell phone. She will remain out of work until I see her back in 6 weeks with xrays, sooner if needed. She has been referred to OT progression of range. On assessment today, she is guarded through left UE with decreased elbow extension (40 degrees) but elbow flex (130) and forearm rotation (90/80) are grossly functional but decreased from full range. She has some symptoms consistent w/ ulnar neuropathy at cubital tunnel but she reports these are been improving. We will continue OT for progression of range and add strength and functional tasks when appropriate per healing, I anticipate she will do well. 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 Administrator Goals: Ind w/ progression of strengthening program Pt to demo good use of left UE w/ bimanual homecare tasks (laundry, mopping) Pt to demo bimanual lift and carry >30lb in prep of work tasks Gross grasp >50lb Elbow extension <10 degrees Elbow flex >145 degrees Treatment Plan: Therapeutic Exercise Therapeutic Activity Home Exercise Program Neuro Re-ed Patient Education Desensitization/Sensory Re-ed Edema Control ADL Training MHP Cold Packs Joint Mobilization Soft Tissue Mobilization Kinesiotaping Electronically Signed By: Dulce Maria Liu, OTR/L CHT Please Sign and return to therapist. Thank you once again for your referral.
--- NOTE | 2024-06-24 11:19 | MHC.OT.OP ---
[address] [phone] F: [phone] Occupational Therapy Progress Note Patient Name: Vania Guevara Diagnosis: Left Elbow Fx Date of Surgery: Date of Evaluation: 04/16/24 Treatments to Date: 14 Cancellations to Date: No Shows to Date: Subjective: It's (pain) making me feel sick. Pain Score: 8 Pain Location: left posterior elbow Objective Measures: Left thumb and ring finger numbness/tingling funny bone feeling Status: Progressing Assessment: At this time patient is progressing well during therapy as she achieved all of the STGs. Her elbow ROM is 8* extension, 135* flexion and today achieved 35lbs. which is under due to pain from performing gardening tasks, her typical doughnut icer strength is approximately 45lbs. Patient remains motivated and willing to participate in therapy. Patient demonstrates great potential to achieve her PLOF of (I) during self care tasks. She requires continued intervention to increase functional activity tolerance, strength and ROM. Short Term Goals: Elbow ext 25 degrees (MET) Elbow flex 140 degrees (met) Ind w/ HEP (met) Pt to demo good use of left hand/arm w/ light bimanual tasks (folding laundry) (met) Ind w/ self massage (met) Pt to report ease w/ sleep positions Intermediate Goals: Ind w/ progression of strengthening program (MET) Pt to demo good use of left UE w/ bimanual homecare tasks (laundry, mopping) (PROGRESSING) Pt to demo bimanual lift and carry >30lb in prep of work tasks (PROGRESSING) Gross grasp >50lb (PROGRESSING) Elbow extension <10 degrees (MET) Elbow flex >145 degrees Frequency and Duration: The patient will be seen 2x a week for 4 weeks Treatment Plan: Therapeutic Exercise Therapeutic Activity Home Exercise Program Splinting Patient Education Edema Control ADL Training Ultrasound NMES Iontophoresis Paraffin Fluidotherapy MHP Cold Packs Joint Mobilization Soft Tissue Mobilization Kinesiotaping Other (see comments) Electronically Signed By: ANA Villafana/Jayce, CLT Reviewed/agree with student documentation: Therapist:
--- NOTE | 2024-08-03 09:43 | MHC.OT.DC ---
[address] [phone] F: [phone] Occupational Therapy Discharge Note Patient Name: Vania Guevara Provider: Luis Saldivar Diagnosis: Left Elbow Fx Date of Surgery: Date of Evaluation: 04/16/24 Date of Discharge: Treatments to Date: 21 Cancellations to Date: No Shows to Date: Discharge Status: Discharge Summary: 17 week s/p injury: Patient has achieved her maximal potential during therapy. At this time she is (I) with her ADLs/IADLs and has returned to work. Thank you for your referral. Patient was a pleasure to work with. Electronically Signed By: Pinky Ceja OTR/Jayce, CLT Reviewed/agree with student documentation: Therapist: Please Sign and return to therapist, thank you for your referral.
== END 2024-08-11 06:54 | disposition home or self-care (01) ==
LOC: HO.OT 08:04
PROVIDERS: PCP Nurse Practitioner Family; Visit Provider Physician Assistant
DX: S42.402D Unspecified fracture of lower end of left humerus, subsequent encounter for fracture with routine healing (principal)
CPT/HCPCS: 97110; 97140; 97165

== ENCOUNTER 2024-08-13 08:48 | Outpatient (REF) | payer OTHER, SELFPAY ==
--- OUTSIDE RECORDS SUMMARY | 2024-08-16 09:14 | XMS_ITS | Data Portability ---
Author Organization [facility], PAIN OFFICE Address [address] [facility] [address] [place] [address] Care Team Providers Care Railroad Detective Name Role Phone MARIA DEL CARMEN CHAVES Primary Care Provider [phone] ATILIO MILES Referring Provider Assessment Encounter Date [...] booked for the same. She needs a sprinkler truck driver on the day of the procedure. I recommend an EMG/NCV study. [email or web address] Not available 09/07/2014 16:08:32 09/19/2014 09/19/2014 Alf [...] booked for the same. She needs a sprinkler truck driver on the day of the [...] By Organization Details Last Modified Time 06/07/2014 [id number] She was advised against bed rest lasting longer than four days and to continue activities as tolerated. [email or web address] Not available 06/07/2014 15:07:21 09/05/2014 [id number] She was advised against bed rest lasting longer than four days and to continue activities as tolerated. [email or web address] Not available 09/05/2014 14:48:47 09/19/2014 [id number] She was advised against bed rest lasting longer than four days and to continue activities as tolerated. [email or web address] Not available 09/20/2014 11:06:04 10/17/2014 [id number] She was advised against bed rest lasting longer than four days and to continue activities as tolerated. [email or web address] Not available 10/17/2014 15:51:03 11/02/2014 [id number] She was advised against bed rest lasting longer than four days and to continue activities as tolerated. [email or web address] Not available 11/08/2014 17:23:13 Reason for Referral None Reported. Results Created Date Observation Date Name Description Value Unit Range Abnormal Flag Note LastModifiedBy Organization Detail LastModifiedTime 05/24/19 15 05/22/2014 MRI, lumba r spine No observ ation record ed. [email or web address] [facility] ([facility] [address] [place], [address], 06/02/2014 14:47:24 Result Notes None recorded. Problems Name Problem SNOMED Code Status Onset Date Resolution Date Notes Provider Name and Address Organization Details Recorded Time Displacement of lumbar intervertebral disc without myelopathy 20011130 Active Morenita cassidy MD [address] , [address], [place], [address], [place] - [facility] 5 17:24:33 Lumbosacral radiculitis 06051086 Yamilka cassidy MD [address] , [address], [place], [address], [place] - [facility] 5 17:24:33 Muscle pain 75843447 Active Morenita cassidy MD [address] [facility] , [address], [place], [address], [place] [facility] 5 17:24:33 Piriformis syndrome 784546860 Active Morenita cassidy MD [address] , [address], [place], [address], [place] [facility] 5 17:24:33 Problem Notes None recorded. Procedures Surgical History Date Name Laterality Status Provider Name and Address Organization Details Recorded Time 5 Piriformis injection under fluroscopic guidance. completed Morenita Gallegos MD [address] [facility] , [address], [place], [address], [place] [facility] 11/08/2014 17:24:33 5 Piriformis injection under fluroscopic guidance. completed Morenita Gallegos MD [address] [facility] , [address], [place], [address], [place] [facility] 09/20/2014 11:08:34 5 Trigger Point Injections under ultrasound guidance completed Morenita Gallegos MD [address] [facility] , [address], [place], [address], [place] [facility] 09/05/2014 14:51:05 5 Trigger Point Injections under ultrasound guidance completed Morenita Gallegos MD [address] [facility] , [address], [place], [address], [place] [facility] 06/07/2014 [...] mm[Hg] 64 mm[Hg] Carlota Vasquez ALIE - Pain Management 5 14:21:14 Date Recorded [...] Or Recreational Drugs Have You Used? No [id number] Information not available 12/10/2019 Education 12 Some College Information not available 05/19/2014 Live Alone Or With Others? With Others , 3 Sons And Daughter Information not available 05/19/2014 Marital Status Informatio n not available 05/19/2014 Sex: Unknown Functional Status Question Answer Note LastModified by Organizat ion Details LastModified Time What is your level of alcohol consumption? 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 [employer] [id number] Information not available 12/10/2019 Mental Status None recorded. Family History Nothing Reported. Medical History Condition Response Anxiety Disorder Y Migrane Y Gynecological HistoryNo gynecological history recorded. Obstetrics History GPAL:G 0 P 0 0 0 0 Past Encounters Encounter ID Performer Location Encounter Start Date Encounter Closed Date Diagnosis/Indication Diagnosis SNOMED-CT Code Diagnosis ICD10 Code Diagnosis Note [id number] Morenita Gallegos MD PAIN OFFICE [address] [place] [address] 05/19/2014 13:49:10 05/20/2014 12:10:41 Displacement of lumbar intervertebral disc without myelopathy 42911534 Lumbosacra l radiculitis 89511889 [id number] Morenita Gallegos MD PAIN OFFICE [address] [place] [address] 06/02/2014 13:32:46 06/02/2014 14:50:17 Displacement of lumbar intervertebral disc without myelopathy 92400956 Lumbosacra l radiculitis 13853256 [id number] Morenita Gallegos MD PAIN OFFICE [address] [place] [address] 06/07/2014 13:58:20 06/07/2014 15:12:34 Muscle pain 26794731 Displaceme nt of lumbar intervertebral disc without myelopathy 71108527 Lumbosacra l radiculitis 57257930 [id number] Morenita Gallegos MD [facility] PAIN OFFICE [address] [facility] [place] [address] 09/05/2014 14:10:43 09/05/2014 14:51:52 Muscle pain 04538848 Displaceme nt of lumbar intervertebral disc without myelopathy 53297463 Lumbosacra l radiculitis 73021752 [id number] Morenita Gallegos MD [facility] PAIN OFFICE [address] [facility] [place] [address] 09/19/2014 11:05:48 09/20/2014 11:09:21 Muscle pain 12996979 Displaceme nt of lumbar intervertebral disc without myelopathy 18286243 Lumbosacra l radiculitis 80875645 Piriformis syndrome 162652407 [id number] Morenita Gallegos MD [facility] PAIN OFFICE [address] [facility] [place] [address] 10/17/2014 14:56:34 10/17/2014 15:58:26 Muscle pain 75293056 Displaceme nt of lumbar intervertebral disc without myelopathy 84582365 Piriformis syndrome 772185383 Lumbosacra l radiculitis 71907057 [id number] Morenita Gallegos MD [facility] PAIN OFFICE [address] [place] [address] 11/02/2014 13:33:44 11/08/2014 17:26:35 Muscle pain 41081419 Displaceme nt of lumbar intervertebral disc without myelopathy 02843480 Piriformis syndrome 481857699 Lumbosacra l radiculitis 86143223 Health Concerns Section Related Observation LastModified by Organization Detai ls LastModified Time None Recorded Concern Status LastModified by Organization Details LastModified Time None Recorded Advance Directives Directive None Recorded Payers Insurance Date Sequence Insurance Name Policy Number Policy Ramsay Covered Member ID Ramsay Member ID Guarantor Name 11/02/2014 2 [facility] Vania Chacon [id number] Vania Guevara 11/02/2014 1 [facility] (MEDICAID HMO) [id number] Vania Chacon [id number] Vania Guevara 11/02/2014 2 [facility] (HMO) Vania Chacon [id number] Vania Bianchidez 03/06/2015 1 [facility] (MEDICAID HMO) [id number] Vania Bianchidez [id number] Vania Angelmudez 11/02/2014 2 [facility] (MEDICAID HMO) Vania Chacon [id number] Vania Bianchidez Notes Date Note Type Note Provider Name and Address Organization Details Recorded Time 06/07/2014 text/html She is here for a trial of trigger point injections in the paraspinal muscles of the lumbar region under ultrasound guidance Morenita Gallegos MD [address] [facility] , [place] [address], [place], [address], [employer] - Pain Management 06/13/2014 09:04:47 09/05/2014 text/html [...] or bowel incontinence. Morenita Gallegos MD [address] [facility] , [address], [place], [address], [facility] - Pain Management 09/07/2014 16:08:57 09/19/2014 text/html She is here for a left piriformis muscle injection under fluoroscopic guidance. She reports no pain benefit with last trigger point injection. Morenita Gallegos MD [address] [facility] , [address], [place], [address], [facility] - Pain Management 09/26/2014 09:35:42 10/17/2014 [...] or bowel incontinence. Morenita Gallegos MD [address] [facility] , [facility] [address], [place], [address], [facility] Pain Management 10/19/2014 09:02:17 11/02/2014 text/html She is here for a left piriformis muscle injection under fluoroscopic guidance. Morenita Gallegos MD [address] [facility] , [address], [place], [address], [facility] Pain Management 11/09/2014 10:30:25 OBGyn Episode No OBEpisode recorded.
== END 2024-08-13 08:49 | disposition home or self-care (01) ==
LOC: HO.HOSX 08:48
PROVIDERS: Visit Provider Physician Assistant
DX: Z13.89 Encounter for screening for other disorder (principal)

== ENCOUNTER 2024-08-20 14:53 | Outpatient (AMB) | payer OTHER, SELFPAY ==
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
--- OUTSIDE RECORDS SUMMARY | 2024-08-20 15:05 | XMS_ITS | Clinical Summary ---
Author Organization [facility] Address [address] [place] [address] Care Team Providers Care Bicycle Repairman Name Role Phone Elly Jean MD Primary [...] age to complete this topic Care Teams Bicycle Repairman Relationship Specialty Start Date End Date Elly Jean MD [address] [place] [address] PCP - General Internal Medicine 03/28/16
== END 2024-08-20 16:52 | disposition home or self-care (01) ==
LOC: HO.HMCFM 14:53
PROVIDERS: PCP Nurse Practitioner Family; Visit Provider Nurse Practitioner Family
DX: M25.511 Pain in right shoulder (principal); M77.8 Other enthesopathies, not elsewhere classified; V89.2XXA Person injured in unspecified motor-vehicle accident, traffic, initial encounter; Z04.3 Encounter for examination and observation following other accident

== ENCOUNTER → 2024-08-20 14:53 | Outpatient (BNVA) | payer OTHER, SELFPAY | PROVIDERS: PCP Nurse Practitioner Family; Visit Provider Nurse Practitioner Family | DX: Z13.89 Encounter for screening for other disorder (principal) ==

== ENCOUNTER 2024-09-01 16:35 | Outpatient (AMB) | payer OTHER, SELFPAY ==
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
== END 2024-09-01 16:42 | disposition home or self-care (01) ==
LOC: HO.HMCFM 16:35
PROVIDERS: PCP Nurse Practitioner Family; Visit Provider Nurse Practitioner Family
DX: M25.511 Pain in right shoulder (principal); V49.50XA Passenger injured in collision with unspecified motor vehicles in traffic accident, initial encounter; Z04.3 Encounter for examination and observation following other accident

== ENCOUNTER 2024-10-20 13:55 | Outpatient (AMB) | payer OTHER, SELFPAY ==
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
[2024-10-20 14:25] VITALS: BMI 29.9
--- OUTSIDE RECORDS SUMMARY | 2024-10-20 14:49 | XMS_ITS | Encounter Summary ---
Author Organization [facility] Address [address] [place] [address] Care Team Providers Care Senior Marketing Engineer Name Role Phone Elly Jean Md MD Primary Care Provider Unavailable Encounter Details Date Type Department Care Team Description 03/29/2016 Leadership Development Manager Report Medical Records [address] [place] [id number] Elly Jean MD, MD Social History Tobacco Use Types Packs/Day Years Used Date Smoking Tobacco: Never Assessed Sex Assigned at Date Recorded Not on file documented as of this encounter Plan of Treatment Not on file documented as of this encounter Visit Diagnoses Not on filedocumented in this encounter Care Teams Senior Marketing Engineer Relationship Specialty Start Date End Date Elly Jean MD, MD PCP - General Internal Medicine 03/28/16 documented as of this encounter
--- OUTSIDE RECORDS SUMMARY | 2024-10-20 14:49 | XMS_ITS | Encounter Summary ---
Author Organization [facility] Address [address] [place] [address] Care Team Providers Care Genetic Coordinator Name Role Phone Elly Jean Md, MD Primary Care Provider Unavailable Encounter Details Date Type Department Care Team Description 05/22/2016 Release of Information Medical Records [address] [place] [id number] Abstract, Provider Social History Tobacco Use Types [...] on filedocumented in this encounter Care Teams Genetic Coordinator Relationship Specialty Start Date End Date Elly Jean MD, MD PCP - General Internal Medicine 03/28/16 documented as of this encounter
--- OUTSIDE RECORDS SUMMARY | 2024-10-20 14:49 | XMS_ITS | Clinical Summary ---
Author Organization [facility] Address [address] [place] [phone] Phone Care Team Providers Care Medical Instrument Cable Fabricator Name Role Phone Pcp, Unknown Primary Care Provider Unavailabl e Allergies Active Allergy Reactions Criticality Noted Date Comments Sulfa (Sulfonamide Antibiotics) Other (See Comments) 06/21/2011spring allergies-OTC meds Medications cetirizine (ZYRTEC) 10 MG tablet TAKE 1 TABLET BY MOUTH DAILY NEEDED FOR ALLERGY SYMPTOMS 10/14/2023 Active diazePAM (VALIUM) 5 MG tablet Take 1 tablet by mouth 2 (two) times a day as needed. Active diclofenac epolamine (FLECTOR) 1.3 % PT12 APPLY 1 PATCH TWICE A DAY Active fluticasone propionate (FLONASE) 50 mcg/actuation nasal spray USE 1 SPRAY IN EACH NOSTRILS TWICE A DAY NEEDED Active ibuprofen (ADVIL,MOTRIN) 800 MG tablet Take 800 mg by mouth every 8 (eight) hours as needed. 10/03/2023 Active naproxen (NAPROSYN) 250 MG tablet TAKE 1 TABLET BY MOUTH TWICE A DAY NEEDED FOR PAIN FOR 14 DAYS Active nitrofurantoin (MACRODANTIN) 50 MG capsule Take 1 capsule by mouth 4 (four) times a day. Active Active Problems No known active problems Social History Tobacco Use Types Packs/Day Years Used Date Smoking Tobacco: Never Smokeless Tobacco: Never Education Answer Date Recorded Are you interested in more education? Not on sebastian e 10/02/2023 Are you concerned about learning? Not on file 10/02/2023 No 10/02/2023 No 10/02/2023 Digital Access Answer Date Recorded No 10/02/2023 No 10/02/2023 Reliable internet access at home? Not on file 10/02/2023 Device with a working camera? Not on file Intimate Partner Violence Answer Date R ecorded Are you denied basic needs s uch as food, clothing, or medical care? No 10/02/2023 In the past 12 months have y ou been in a relationship with a person who hurts, threatens, or tries to control you? No 10/02/2023 Are you denied basic needs s uch as food, clothing, or medical care? No 10/02/2023 In the past 12 months have y ou been in a relationship with a person who hurts, threatens, or tries to control you? No 10/02/2023 Comments No Sex and Gender Information Value Date Recorded Sex Assigned at Not on file Legal Sex Female 6:48 PM EST Gender Identity Not on file Sexual Orientation Don't know 10/02/2023 10 :04 AM EDT Last Filed Vital Signs Vital Sign Reading Time Taken Comments Blood Pressure 108/77 12/05/2023 3:08 PM EDT Pulse 89 12/05/2023 3:08 PM EDT Temperature 37.1 C (98.8 F) 12/05/2023 3:08 PM EDT Respiratory Rate 16 12/05/2023 3:08 PM EDT Oxygen Saturation 100% 12/05/2023 3:08 PM EDT Inhaled Oxygen Concentration - - Weight 56.7 kg (125 lb) 10/02/2023 10:02 AM EDT Height 149.9 cm (4' 11 ) 10/02/2023 10:02 AM EDT Body Mass Index 25.25 10/02/2023 10:02 AM EDT Plan of Treatment Health Maintenance Due Date Last Done Comments Adult Td,Tdap Booster 1985 DEPRESSION SCREENING 1997 HEPATITIS C SCREENING 11/22/2003 HIV ONE-TIME SCREENING (18-6 5 YEARS) 11/22/2003 PAP SMEAR 2006 COVID-19 VACCINE (2023-2 5 season) 2023 INFLUENZA VACCINE (#1) 2024 SCREENING FOR DIABETES 10/01/2026 10/02/2023 SMOKING STATUS SCREENING (On ce After 26 Yrs) Completed 12/05/2023 HEPATITIS A VACCINES Aged Out No long er eligible based on patient's age to complete this topic HIB VACCINES Aged Out No longer eligi ble based on patient's age to complete this topic MENINGOCOCCAL VACCINES (ACWY) Aged Out No longer eligible based on patient's age to complete this topic MENINGOCOCCAL VACCINES (B) Aged Out N o longer eligible based on patient's age to complete this topic PNEUMOCOCCAL VACCINES (0-49 years) Aged Out No longer eligible based on patient's age to complete this topic Medical Devices Not on file [facility] COMMUN[facility] CHOICE [facility] SAFETY NET PARTIAL [facility] CHOICE HEALTH SAFETY NET PARTIAL HEALTH SAFETY NET PARTIAL [facility] COMMUNITY CHOICE [facility] PARTIAL [facility] COMMUNITY CHOICE HEALTH SAFETY NET PARTIAL HEALTH SAFETY NET PARTIAL Care Teams Medical Instrument Cable Fabricator Relationship Specialty Start Date End Date Pcp, Unknown PCP - General 10/02/23 Additional Source Comments The information contained in this document represents components of the legal health record. It is not the complete legal health record.[facility]
--- OUTSIDE RECORDS SUMMARY | 2024-10-20 14:49 | XMS_ITS | Clinical Summary ---
Author Organization [employer] Address [address] [facility] [address] [address] Care Team Providers Care Log Tumbler Name Role Phone Unavailable Primary Care Provider Unavailabl e Allergies No known active allergies Medications fluticasone (Flonase) 50 MCG/ACT nasal spray USE 1 SPRAY IN EACH NOSTRILS TWICE A DAY NEEDED Active ibuprofen 800 MG tablet 10/03/2023 Active Immunizations Immunization Administration Dates Next Due Pfizer Covid-19 Vaccine [...] 1985 HIV Screening 1985 SDOH Screening 1985 Disability Screening 1985 Alcohol/Substance Use Screening 1997 Family Planning (PISQ) 2000 HPV Vaccines (1 - 3-dose series) 2000 Hepatitis C Screening 11/22/2003 Hepatitis B Vaccines (1 of 3 - 19+ 3-dose series) 2004 Pap Smear 2006 Cervical Cancer Screening 11/22/2015 HPV/Cotest 11/22/2015 COVID-19 Vaccine (2 - 2023-2 5 season) 2023 04/19/2022 Dental Oral Exam 04/08/2024 10/06/2023, 05/01/2018 Dental Prophylaxis 04/08/2024 10/06/2023, 05/01/2018 Tobacco Screening 10/05/2024 10/06/2023 Dental X-Ray: Bitewings 10/06/2024 10/06/19 24, 05/15/2021, 05/01/2018 Influenza Vaccine (#1) 2024 Dental X-Ray: Full Mouth 10/06/2026 024, 05/01/2018 [...] Years) and At-Risk Patients (6 to 49) Years Aged Out No longer eligible b ased [...] to Health Maintenance Insurance [employer] [place]
--- OUTSIDE RECORDS SUMMARY | 2024-10-20 14:49 | XMS_ITS | Clinical Summary ---
Author Organization [facility] Address [address] [place] [address] Care Team Providers Care Beverage Host Name Role Phone Elly Jean MD Primary [...] 2006 COVID-19 Vaccine (2023-2 5 season) 2023 Depression Screening 02/25/2024 Influenza Vaccine (#1) 2024 HIB Vaccines Aged Out No longer [...] 5 Years) and At-Risk Patients (6 to 49 Years) Aged Out No longer eligible b ased on patient's age to complete this topic RSV Immunization Patients Un jerrod 20 months Aged Out No longer eligible b ased on patient's age to complete this topic Varicella Vaccines Aged Out No longer eligible based on patient's age to complete this topic Care Teams Beverage Host Relationship Specialty Start Date End Date Elly Jean MD [address] [place] [address] PCP - General Internal Medicine 03/28/16
--- OUTSIDE RECORDS SUMMARY | 2024-10-20 14:49 | XMS_ITS | Encounter Summary ---
Author Organization [facility] Address [address] [place] [address] Care Team Providers Care Junior Assistant Manager Name Role Phone Elly Jean Md, MD Primary Care Provider Unavailable Encounter Details Date Type Department Care Team Description 05/21/2016 Transfer Records Medical Records [address] [place] [id number] Abstract, Provider Social History Tobacco Use Types [...] on filedocumented in this encounter Care Teams Junior Assistant Manager Relationship Specialty Start Date End Date Elly Jean MD, MD PCP - General Internal Medicine 03/28/16 documented as of this encounter
--- OUTSIDE RECORDS SUMMARY | 2024-10-20 14:49 | XMS_ITS | Encounter Summary ---
Author Organization [employer] [facility] Address [address] [facility] [address] [place] [address] Care Team Providers Care Product Marketing Specialist Name Role Phone Unavailable Primary Care [...]
== END 2024-10-20 15:19 | disposition home or self-care (01) ==
LOC: HO.HOS 13:56
PROVIDERS: PCP Nurse Practitioner Family; Visit Provider Physician Assistant
DX: S16.1XXA Strain of muscle, fascia and tendon at neck level, initial encounter (principal)
CPT/HCPCS: 99213; G2211

== ENCOUNTER 2024-10-21 09:03 | Outpatient (AMB) | payer OTHER, SELFPAY ==
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
--- OUTSIDE RECORDS SUMMARY | 2024-10-21 09:55 | XMS_ITS | Clinical Summary ---
Author Organization [facility] Address [address] [place] [address] Care Team Providers Care Template Clerk Name Role Phone Elly Jean MD Primary [...] age to complete this topic Care Teams Template Clerk Relationship Specialty Start Date End Date Elly Jean MD [address] [place] [address] PCP - General Internal Medicine 03/28/16
--- OUTSIDE RECORDS SUMMARY | 2024-10-21 09:55 | XMS_ITS | Clinical Summary ---
Author Organization [facility] Address [address] [place] [phone] Phone Care Team Providers Care Personalized Living Manager Nurse Name Role Phone Pcp, Unknown Primary Care [...] topic Medical Devices Not on file [facility] CHOICE [facility] SAFETY NET PARTIAL [facility] CHOICE HEALTH SAFETY NET PARTIAL HEALTH SAFETY NET PARTIAL [facility] COMM[facility] CHOICE [facility] PARTIAL [facility] CHOICE HEALTH SAFETY NET PARTIAL HEALTH SAFETY NET PARTIAL Care Teams Personalized Living Manager Nurse Relationship Specialty Start Date End Date Pcp, Unknown PCP - General 10/02/23 Additional Source Comments The information contained in this document represents components of the legal health record. It is not the complete legal health record.[facility]
--- OUTSIDE RECORDS SUMMARY | 2024-10-21 09:55 | XMS_ITS | Encounter Summary ---
Author Organization [employer] [facility] Address [address] [facility] 7t [place] [address] Care Team Providers Care Mortgage Loan Officer Originator Name Role Phone Unavailable Primary Care Provider [...]
--- OUTSIDE RECORDS SUMMARY | 2024-10-21 09:55 | XMS_ITS | Clinical Summary ---
Author Organization [employer] Address [address] [facility] 7[address] [place] [address] Care Team Providers Care Veterans' Counselor Name Role Phone Unavailable Primary Care Provider [...] to Health Maintenance Insurance [employer] [facility] [place]
== END 2024-10-21 11:06 | disposition home or self-care (01) ==
PROVIDERS: PCP Nurse Practitioner Family; Visit Provider Physical Medicine & Rehabilitation
DX: M79.18 Myalgia, other site (principal)
CPT/HCPCS: 99214

== ENCOUNTER 2024-11-26 08:24 | Outpatient (AMB) | payer OTHER, SELFPAY ==
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
[2024-11-26 08:35] VITALS: BP 104/60; PULSE 79; O2SAT 99; BMI 29.5
== END 2024-11-26 08:57 | disposition home or self-care (01) ==
LOC: HO.HMCFM 08:25
PROVIDERS: PCP Nurse Practitioner Family; Visit Provider Nurse Practitioner Family
DX: M54.2 Cervicalgia (principal); Z04.3 Encounter for examination and observation following other accident; M25.512 Pain in left shoulder; M79.602 Pain in left arm; S16.1XXA Strain of muscle, fascia and tendon at neck level, initial encounter; V89.2XXA Person injured in unspecified motor-vehicle accident, traffic, initial encounter

== ENCOUNTER 2024-12-03 08:25 | Outpatient (AMB) | payer OTHER, SELFPAY ==
--- NOTE | 2024-12-03 08:32 | MHC.OFFVIS ---
Vital Signs 12/03/24 08:36 Height 4 ft 11 in Weight 146 lb BMI 29.5 Intake Visit Reasons: INJ/Trigger injection #1 Intake Note: Vania is a 39 year old female who presents today for her upper trapezius right side Trigger point injection #1. Patient states that she has started attending physical therapy. Patient states that she is continuing with her at home exercises. Allergies Seasonal Allergies Allergy (Intermediate, Verified 12/03/24 08:36) Congestion Medication List - Last Reconciled 12/03/24 by Leah Fang MD cetirizine (Zyrtec) 10 mg PO DAILY PRN fluticasone propionate 50 mcg/actuation 2 SPRAY INTRANASALLY DAILY FOR 1 MONTH ADMINISTER INTO EACH NOSTRIL ibuprofen 800 mg PO Q8H PRN lidocaine 5% 1 appl topical TID PRN HPI Comments Details: Doing physical therapy. Came in with taping. [facility] Medical History Cervicalgia Right ankle tendonitis Back pain Surgical History History of tubal ligation Family History Father Medical history unknown Mother Alive and well Maternal Grandmother Lung cancer Social History Household Members: Family Both parents involved: No Caregiver staying overnight: No Housing: House Are you a primary home health care respiratory therapist to a significant other at home: No Do you presently have visiting nurse or other home services: No 75 years or older and lives alone: No Alcohol intake: current Alcohol intake frequency: holidays/special occasions only Alcohol type: hard liquor Patient Tobacco Use Status: Never used Tobacco e-Cigarette/Vaping Use: Never Used service: No 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al status: employed 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: [employer] worker 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al exposures/hazards: No Cognitive needs: No Hearing needs: No Vision needs: No Physical Exam Vital Signs: BMI result Body Mass Index 29.5 Office Procedures Therapeutic Injection Therapeutic Injection Details: Trigger point injection, right upper trapezius. Consent obtained. 2 trigger points palpated on right upper trapezius. Area cleansed with Betadine. Needling performed with gauge 27 needle, subsequently injecting 1 ml of 2% Lidocaine on each site, total of 2 mL. Patient tolerated procedure well. Post-injection instructions given. 28571-Xdffnhk Point Injection 1 or 2 sites All charges added?: Procedure code (CPT) selection complete Assessment & Plan Assessment & Plan (1) Myofascial pain: Code(s): M79.18 - Myalgia, other site Category: Medical Plan Tolerated procedure well. Assessment and plan discussed with patient, and patient was agreeable. All questions were answered thoroughly. Leah Fang MD, [place] Board Certified, [place] Board of Physical Medicine and Rehabilitation (ABPMR) Board Certified, [place] Board of Electrodiagnostic Medicine (ABEM) Orders: Orders AMB Trigger Point Injection Today M79.18 - Myalgia, other site Coding Level of Care Code Procedure Only Diagnoses Myofascial pain M79.18 CPT Codes Therapeutic Injection - Ther Injection 1: 49896-Fhydfrw Point Injection 1 or 2 sites ([id number])
[2024-12-03 08:36] VITALS: BMI 29.5
== END 2024-12-03 08:50 | disposition home or self-care (01) ==
LOC: HO.HOS 08:26
PROVIDERS: PCP Nurse Practitioner Family; Visit Provider Physical Medicine & Rehabilitation
DX: M79.18 Myalgia, other site (principal)
CPT/HCPCS: 20552

== ENCOUNTER → 2024-12-03 08:25 | Outpatient (BNVA) | payer OTHER, SELFPAY | PROVIDERS: PCP Nurse Practitioner Family; Visit Provider Physical Medicine & Rehabilitation | DX: M79.18 Myalgia, other site (principal) | CPT/HCPCS: 20552; J2003 ==

== ENCOUNTER 2024-12-10 09:01 | Outpatient (AMB) | payer OTHER, SELFPAY ==
--- NOTE | 2024-12-10 09:20 | A.OFFVIS_ITS ---
Intake Visit Reasons: INJ- Trigger point injection #2 Intake Note: Vania is a 39 year old female who presents today for a right upper trapezius Trigger point injection #2. Patient states that the last injection did give some relief. Patient states that physical therapy is going well but she feels sore after each appointment. Allergies Seasonal Allergies Allergy (Intermediate, Verified 12/10/24 09:24) Congestion Medication List - Last Reconciled 12/10/24 by Leah Fang MD cetirizine (Zyrtec) 10 mg PO DAILY PRN fluticasone propionate 50 mcg/actuation 2 SPRAY INTRANASALLY DAILY FOR 1 MONTH ADMINISTER INTO EACH NOSTRIL ibuprofen 800 mg PO Q8H PRN lidocaine 5% 1 appl topical TID PRN PFSH Medical History Cervicalgia Right ankle tendonitis Back pain Surgical History History of tubal ligation Family History Father Medical history unknown Mother Alive and well Maternal Grandmother Lung cancer Social History Household Members: Family Both parents involved: No Caregiver staying overnight: No Housing: House Are you a primary healthcare administration intern to a significant other at home: No Do you presently have visiting nurse or other home services: No 75 years or older and lives alone: No Alcohol intake: current Alcohol intake frequency: holidays/special occasions only Alcohol type: hard liquor Patient Tobacco Use Status: Never used Tobacco e-Cigarette/Vaping Use: Never Used service: No 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al status: employed 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: [employer] 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al exposures/hazards: No Cognitive needs: No Hearing needs: No Vision needs: No Office Procedures Therapeutic Injection Therapeutic Injection Details: Trigger point injection, bilateral upper trapezius. Consent obtained. 2 trigger points palpated on right upper trapezius, 1 on left. Area cleansed with Betadine. Needling performed with gauge 27 needle, subsequently injecting 1 ml of 2% Lidocaine on each site, total of 3 mL. Patient tolerated procedure well. Post-injection instructions given. 46963-Djaaesf Point Injection 3 or more All charges added?: Procedure code (CPT) selection complete Office Meds lidocaine (PF) 20 mg/mL (2 %) injection solution Performing Provider: Leah Fang MD Performing Location: [facility] Documented (not given) by: Leah Fang MD on 12/10/24 09:45 Dose Route Admin Location Dispensed Lot Number Expiration Date NDC Dye Boarding Machine Operator 60 mg subcut mL Total Dispensed Waste n/a n/a Assessment & Plan Assessment & Plan (1) Myofascial pain: Code(s): M79.18 - Myalgia, other site Category: Medical Plan Tolerated procedure well. Assessment and plan discussed with patient, and patient was agreeable. All questions were answered thoroughly. Leah Fang MD, [place] Board Certified, [place] Board of Physical Medicine and Rehabilitation (ABPMR) Board Certified, [place] Board of Electrodiagnostic Medicine (ABEM) Orders: Orders AMB Trigger Point Injection Today M79.18 - Myalgia, other site Medications: New lidocaine (PF) 60 mg (3 mL) subcut ONCE 3 mL 0RF M79.18 - Myalgia, other site Coding Level of Care Code Procedure Only Diagnoses Myofascial pain M79.18 CPT Codes Therapeutic Injection - Ther Injection 2: 36174-Zvdnnyf Point Injection 3 or more ([id number])
--- OUTSIDE RECORDS SUMMARY | 2024-12-10 09:44 | XMS_ITS | Clinical Summary ---
Author Organization [employer] Address [address] [place] [address] Care Team Providers Care Collection Teller Name Role Phone Unavailable Primary Care Provider [...] 2006 Cervical Cancer Screening 11/22/2015 HPV/Cotest 11/22/2015 Dental Oral Exam 04/08/2024 10/06/2023, 05/01/2018 Dental Prophylaxis 04/08/2024 10/06/2023, 05/01/2018 Tobacco Screening 10/05/2024 10/06/2023 Dental X-Ray: Bitewings 10/06/2024 10/06/19 24, 05/15/2021, 05/01/2018 COVID-19 Vaccine (2 - 2024-2 6 season) 2024 04/19/2022 Influenza Vaccine (#1) 2024 Dental X-Ray: Full [...] to Health Maintenance Insurance [place]
--- OUTSIDE RECORDS SUMMARY | 2024-12-10 09:44 | XMS_ITS | Encounter Summary ---
Author Organization [facility] Address [address] [place] [address] Care Team Providers Care Car Construction Superintendent Name Role Phone Unavailable Primary Care Provider [...]
--- OUTSIDE RECORDS SUMMARY | 2024-12-10 09:44 | XMS_ITS | Clinical Summary ---
Author Organization [employer] [facility] Address [address] [place] [address] Care Team Providers Care Pipe Insulator Helper Name Role Phone Elly Jean MD Primary Care Provider [phone] Family History Medical History Relation Name Comments [...] Cervical Cancer Screening: P ap Smear 2006 HPV Vaccines (1 - 3-dose SCD M series) 2012 Depression Screening 02/25/2024 COVID-19 Vaccine ( - 2023-2 5 season) 2024 Influenza Vaccine (#1) 2024 RSV Immunization Adult Patie nts (1 - 1-dose 75+ series) 2060 HIB [...] age to complete this topic Care Teams Pipe Insulator Helper Relationship Specialty Start Date End Date Elly Jean MD [address] [place] [address] PCP - General Internal Medicine 03/28/16
--- OUTSIDE RECORDS SUMMARY | 2024-12-10 09:44 | XMS_ITS | Clinical Summary ---
Author Organization [facility] Address [address] [place] [id number] Phone Care Team Providers Care Swiss Type Screw Machine Operator Name Role Phone Pcp, Unknown Primary Care [...] (18-6 5 YEARS) 11/22/2003 PAP SMEAR 2006 INFLUENZA VACCINE (#1) 2024 COVID-19 VACCINE ( - 2024-2 6 season) 2024 SCREENING FOR DIABETES 10/01/2026 10/02/2023 SMOKING [...] topic Medical Devices Not on file [facility] COMMUNITY CHOICE [facility] S[facility] NET PARTIAL [facility] CHOICE HEALTH SAFETY NET PARTIAL HEALTH SAFETY NET PARTIAL [facility] CHOICE [facility] PARTIAL [facility] CHOICE HEALTH SAFETY NET PARTIAL HEALTH SAFETY NET PARTIAL Care Teams Swiss Type Screw Machine Operator Relationship Specialty Start Date End Date Pcp, Unknown PCP - General 10/02/23 Additional Source Comments The information contained in this document represents components of the legal health record. It is not the complete legal health record.[facility]
--- OUTSIDE RECORDS SUMMARY | 2024-12-10 09:44 | XMS_ITS | Data Portability ---
Author Organization [facility] Pain Managem ent, PAIN OFFICE Address [address],[facility] [address] [place] [address] Care Team Providers Care Drafting Detailer Name Role Phone MARIA DEL CARMEN CHAVES Primary Care Provider [phone] ATILIO MILES Referring Provider [phone] Assessment Encounter Date Assessment Date Assessment LastModified [...] booked for the same. She needs a road train driver on the day of the procedure. I recommend an EMG/NCV study. [email or web address] Not available 09/07/2014 16:08:32 09/19/2014 09/19/2014 Alf [...] booked for the same. She needs a road train driver on the day of the procedure. [...] By Organization Details Last Modified Time 06/07/2014 [id number] She was advised against bed rest lasting longer than four days and to continue activities as tolerated. [email or web address] Not available 06/07/2014 15:07:21 09/05/2014 [id number] She was advised against bed rest lasting longer than four days and to continue activities as tolerated. [email or web address] Not available 09/05/2014 14:48:47 09/19/2014 [id number] She was advised against bed rest lasting longer than four days and to continue activities as tolerated. [email or web address] Not available 09/20/2014 11:06:04 10/17/2014 [id number] She was advised against bed rest lasting longer than four days and to continue activities as tolerated. [email or web address] Not available 10/17/2014 15:51:03 11/02/2014 [id number] She was advised against bed rest lasting longer than four days and to continue activities as tolerated. [email or web address] Not available 11/08/2014 17:23:13 Reason for Referral None Reported. Results Created Date Observation Date Name Description Value Unit Range Abnormal Flag Note LastModifiedBy Organization Detail LastModifiedTime 05/24/19 15 05/22/2014 MRI, lumba r spine No observ ation record ed. tmanikruthie [facility] ([facility]) [address] [place], [address], 06/02/2014 14:47:24 Result Notes None recorded. Problems Name Problem SNOMED Code Status Onset Date Resolution Date Notes Provider Name and Address Organization Details Recorded Time Displacement of lumbar intervertebral disc without myelopathy 20011130 Active Morenita cassidy MD [address] , [address], [place], [address], [place] - [facility] 5 17:24:33 Lumbosacral radiculitis 82059106 Yamilka cassidy MD [address] , [address], [place], [address], [place] - [facility] 5 17:24:33 Muscle pain 61721598 Active Morenita cassidy MD [address] [facility] , [address], [place], [address], [place] [facility] 5 17:24:33 Piriformis syndrome 063900525 Active Morenita cassidy MD [address] , [address], [place], [address], [place] [facility] 5 17:24:33 Problem Notes None recorded. Procedures Surgical History Date Name Laterality Status Provider Name and Address Organization Details Recorded Time 5 Piriformis injection under fluroscopic guidance. completed Morenita Gallegos MD [address] [facility] , [address], [place], [address], [place] [facility] 11/08/2014 17:24:33 5 Piriformis injection under fluroscopic guidance. completed Morenita Gallegos MD [address] [facility] , [address], [place], [address], [place] [facility] 09/20/2014 11:08:34 5 Trigger Point Injections under ultrasound guidance completed Morenita Gallegos MD [address] [facility] , [address], [place], [address], [place] [facility] 09/05/2014 14:51:05 5 Trigger Point Injections under ultrasound guidance completed Morenita Gallegos MD [address] [facility] , [address], [place], [address], [place] [facility] 06/07/2014 [...] blood by Pulse oximetry Heart rate Systolic And Diastolic Provider Name and Address Organization Details Last Updated DateTime 06/07/2014 99 % 99 % 78 /min 131/85 mm[Hg] Carlota Vasquez [place] - [facility] 5 14:24:17 Date Recorded Oxygen saturation Oxygen saturation in Arterial blood by Pulse oximetry Heart rate Systolic And Diastolic Provider Name and Address Organization Details Last Updated DateTime 09/05/2014 98 % 98 % 83 /min 119/64 mm[Hg] Carlota Vasquez [place] - [facility] 5 14:21:14 Date Recorded Oxygen saturation Oxygen saturation in Arterial blood by Pulse oximetry Heart rate Systolic And Diastolic Provider Name and Address Organization Details Last Updated DateTime 09/19/2014 99 % 99 % 78 /min 117/79 mm[Hg] Carlota Vasquez [place] - [facility] 5 11:14:17 Date Recorded Oxygen saturation Oxygen saturation in Arterial blood by Pulse oximetry Heart rate Systolic And Diastolic Provider Name and Address Organization Details Last Updated DateTime 10/17/2014 99 % 99 % 91 /min 118/60 mm[Hg] Carlota Vasquez [place] - [facility] 5 15:31:12 Date Recorded Oxygen saturation Oxygen saturation in Arterial blood by Pulse oximetry Heart rate Systolic And Diastolic Provider Name and Address Organization Details Last Updated DateTime 11/02/2014 98 % 98 % 76 /min 105/72 mm[Hg] Carlota Vasquez [place] - [facility] 5 13:47:40 Social History Question Answer Notes LastModified by Organizat ion Details LastModified Time Tobacco Smoking Status Never [facility]oker Not Available [facility] 12/10/2019 03:16:10 Which Illicit Or Recreational Drugs Have You Used? No [id number] Information not available 12/10/2019 Education 12 Some College Information not available 05/19/2014 Live Alone Or With Others? With Others , 3 Sons And Daughter Information not available 05/19/2014 Marital Status [email or web address] Informatio n not available 05/19/2014 Sex: Unknown Functional Status Question Answer Note LastModified by Organizat ion Details LastModified Time What is your level of alcohol consumption? 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 Family History Nothing Reported. Medical History Condition Response Anxiety Disorder Y Migrane Y Gynecological HistoryNo gynecological history recorded. Obstetrics History GPAL:G 0 P 0 0 0 0 Past Encounters Encounter ID Performer Location Encounter Start Date Encounter Closed Date Diagnosis/Indication Diagnosis SNOMED-CT Code Diagnosis ICD10 Code Diagnosis IMO Codes Diagnosis Note [id number] Morenita Gallegos MD PAIN OFFICE [address] [place] [address] 05/19/2014 13:49:10 05/20/2014 12:10:41 Displacement of lumbar intervertebral disc without myelopathy 88788155 Lumbosacra l radiculitis 24500520 [id number] Morenita Gallegos MD PAIN OFFICE [address] [place] [address] 06/02/2014 13:32:46 06/02/2014 14:50:17 Displacement of lumbar intervertebral disc without myelopathy 77704580 Lumbosacra l radiculitis 69273230 [id number] Morenita Gallegos MD PAIN OFFICE [address] [place] [address] 06/07/2014 13:58:20 06/07/2014 15:12:34 Muscle pain 11207335 Displaceme nt of lumbar intervertebral disc without myelopathy 57028499 Lumbosacra l radiculitis 13721835 [id number] Morenita Gallegos MD PAIN OFFICE [address] [place] [address] 09/05/2014 14:10:43 09/05/2014 14:51:52 Muscle pain 08068377 Displaceme nt of lumbar intervertebral disc without myelopathy 20682233 Lumbosacra l radiculitis 29100253 [id number] Morenita Gallegos MD PAIN OFFICE [address] [facility] [place] [place] [address] 09/19/2014 11:05:48 09/20/2014 11:09:21 Muscle pain 30089879 Displaceme nt of lumbar intervertebral disc without myelopathy 21153475 Lumbosacra l radiculitis 76975510 Piriformis syndrome 915737158 [id number] Morenita Gallegos MD [facility] PAIN OFFICE [address] [facility] [place] [address] 10/17/2014 14:56:34 10/17/2014 15:58:26 Muscle pain 62718973 Displaceme nt of lumbar intervertebral disc without myelopathy 71379751 Piriformis syndrome 660913369 Lumbosacra l radiculitis 02701778 [id number] Morenita Gallegos MD PAIN OFFICE [address] [facility] [place] [address] 11/02/2014 13:33:44 11/08/2014 17:26:35 Muscle pain 96909742 Displaceme nt of lumbar intervertebral disc without myelopathy 29532969 Piriformis syndrome 570921320 Lumbosacra l radiculitis 86437182 Health Concerns Section Related Observation LastModified by Organization Detai ls LastModified Time None Recorded Concern Status LastModified by Organization Details LastModified Time None Recorded Advance Directives Directive None Recorded Payers Insurance Date Sequence Insurance Name Policy Number Policy Ramsay Covered Member ID Ramsay Member ID Guarantor Name 11/02/2014 2 [facility] Vania Chacon [id number] Vania Guevara 11/02/2014 1 [facility] (MEDICAID HMO) [id number] Vania Chacon [id number] Vania Guevara 11/02/2014 2 [facility] ([facility] Vania Chacon [id number] 2 Vania Guevara 03/06/2015 1 [facility] (MEDICAID [facility] [id number] Vania Paola [id number] Lyndaelliott Paola 11/02/[address] [place] [address] (MEDICAID HMO) Vania Chacon [id number] Vania Paola Notes Date Note Type Note Provider Name and Address Organization Details Recorded Time 06/07/2014 text/html She is here for a trial of trigger point injections in the paraspinal muscles of the lumbar region under ultrasound guidance Morenita Gallegos MD [address] , [address], [place], [address], [place] [facility] 06/13/2014 09:04:47 09/05/2014 text/html She [...] or bowel incontinence. Morenita Gallegos MD [address] [facility] , [address], [place], [address], [place] [facility] 09/07/2014 16:08:57 09/19/2014 text/html She is here for a left piriformis muscle injection under fluoroscopic guidance. She reports no pain benefit with last trigger point injection. Morenita Gallegos MD [address] [facility] , [address], [place], [address], [place] [facility] 09/26/2014 09:35:42 10/17/2014 text/html She [...] or bowel incontinence. Morenita [facility]os MD [address] [facility] [address], [place], [address], [place] [facility] 10/19/2014 09:02:17 11/02/2014 text/html She is here for a left piriformis muscle injection under fluoroscopic guidance. Morenita Gallegos MD [address] [facility] , [address], [place], [address], [facility] 11/09/2014 10:30:25 OBGyn Episode No OBEpisode recorded.
== END 2024-12-10 09:38 | disposition home or self-care (01) ==
PROVIDERS: PCP Nurse Practitioner Family; Visit Provider Physical Medicine & Rehabilitation
DX: M79.18 Myalgia, other site (principal)
CPT/HCPCS: 20553

== ENCOUNTER → 2024-12-10 09:01 | Outpatient (BNVA) | payer OTHER, SELFPAY | PROVIDERS: PCP Nurse Practitioner Family; Visit Provider Physical Medicine & Rehabilitation | DX: M79.18 Myalgia, other site (principal) | CPT/HCPCS: 20553; J2003 ==

== ENCOUNTER 2024-12-17 09:05 | Outpatient (AMB) | payer OTHER, SELFPAY ==
--- NOTE | 2024-12-17 09:09 | MHC.OFFVIS ---
Intake Visit Reasons: INJ/Trigger injection #3 Intake Note: Vania is a 39 year old rght hand dominant female who presents today for a Trigger point injection #3. Last injection was administered on 12/10/24, which provided no relief. She reports that she is feeling frustrated as she feels that she a regressing. She is waking up with her shoulders feeling tense and painful. She called out of work today due to her symtpoms and is requesting an out of work note. She also mentions that she is concerned about allergy to previous trigger point injections, she is noticing full body itchiness after the injections that slowly subsides. She was not able to connect the itchiness with the injections until the second injections. Has not changed any other medications, soaps, lotion or skincare products. Overall she is hesitant to move forward with injections if they are not helping and causing itchiness. Allergies Seasonal Allergies Allergy (Intermediate, Verified 12/17/24 09:10) Congestion lidocaine Allergy (Mild, Verified 12/17/24 09:35) itchiness HPI Comments Details: Reports itchiness noted 1 day after trigger point injection with lidocaine, no rash, no throat symptoms, no SOB. She was still itchy up until last night. After PT sessions, she would be tense in her neck/shoulder/upper back, would wake up at night. Been needing ibuprofen before sleep. She is now reporting both right and left shoulder pain. Still in PT, working with bands. But it seems to flare the shoulder pain. I started seeing her back in September complaining of both neck and shoulder pain. Diagnosis was myofascial pain or upper trapezius, without signs of cervical radiculopathy or myelopathy, no signs of rotator cuff injury. X-rays were unremarkable. We have done 2 trigger point injections so far, once a week x2 weeks. Cancelling today's injection. [facility] Medical History Cervicalgia Right ankle tendonitis Back pain Surgical History History of tubal ligation Family History Father Medical history unknown Mother Alive and well Maternal Grandmother Lung cancer Social History (Reviewed 12/17/24 @ 09:22 by Miriam Rivas [facility]) Household Members: Family Both parents involved: No Caregiver staying overnight: No Housing: House Are you a primary daycare director to a significant other at home: No Do you presently have visiting nurse or other home services: No 75 years or older and lives alone: No Alcohol intake: current Alcohol intake frequency: holidays/special occasions only Alcohol type: hard liquor Patient Tobacco Use Status: Never used Tobacco e-Cigarette/Vaping Use: Never Used service: No 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al status: employed 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: [employer] 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al exposures/hazards: No Cognitive needs: No Hearing needs: No Vision needs: No Physical Exam Exam Exam: Constitutional: Patient appears to be in no acute distress, well nourished and well developed. Patient was appropriately conversant and oriented. Good historian. MSK: Inspection reveals appropriate head and neck positioning. Still with trigger points on bilateral upper trapezius. No point tenderness over cervical spinous processes. Cervical ROM was full. Spurling's sign negative. Bilateral shoulder, elbow and wrist ROM WNL. No ligamentous laxity or crepitance. No increased effusion. Negative Hager sign. Negative empty can sign. Strength is 5/5 in all muscle groups tested. No increased tone noted. Neurological: Neurologic examination of the upper and lower extremities was nonfocal with intact sensation, muscle stretch reflexes and without focal motor deficits . Zavala?s negative bilaterally. Babinski was down going bilaterally. Clonus was negative. Gait is non-antalgic without loss of balance. Results Reviewed Results Reviewed: EMG 06/30/24 IMPRESSION: 1. This is a normal study. 2. There is no electrodiagnostic evidence for peroneal neuropathy, tibial neuropathy, lumbosacral plexopathy, lumbar radiculopathy, or peripheral neuropathy. Ordering Physician: Luis Saldivar PA-C Date of Service: 05/03/24 Procedure(s): XR shoulder RT min 2V Accession Number(s): [id number] cc: Luis Saldivar PA-C~ EXAMINATION: XR SHOULDER, RIGHT CLINICAL INFORMATION: M25.511 - Pain in right shoulder COMPARISON: 11/04/2010. TECHNIQUE: AP external rotation, Grashey, scapular Y, and axillary views of the right shoulder. FINDINGS: Normal bone mineralization. No fracture, dislocation, or suspicious bone lesion. Normal alignment. The glenohumeral joint is normal. The AC joint is normal. There is a type II acromion. No undersurface spurring. The subacromial space is preserved. Remainder of the soft tissue and bony structures appear normal. XR/XR shoulder RT min 2V IMPRESSION: Normal right shoulder. Electronically signed by: Newton Lynch MD 05/04/2024 08:49 AM EDT Ordering Physician: Franci Hutson Date of Service: 12/29/23 Procedure(s): XR cervical spine 3V Accession Number(s): [id number] cc: Franci Hutson~ EXAMINATION: XR CERVICAL SPINE CLINICAL INFORMATION: Pain following injury. COMPARISON: Cervical spine MRI dated 06/16/2017. TECHNIQUE: 3 views of the cervical spine were obtained. FINDINGS: Straightening of the normal cervical lordosis which may be positional or related to muscle spasm. No atlantoaxial alignment. No acute fracture or subluxation. No loss of vertebral body or intervertebral disc height. No concerning lytic or blastic osseous lesion. Unremarkable prevertebral soft tissues. Unremarkable facets. XR/XR cervical spine 3V IMPRESSION: 1. Straightening of the normal cervical lordosis which may be positional or related to muscular spasm. 2. No acute fracture or subluxation. Electronically signed by: Shaka Hitchcock MD 12/29/2023 12:46 PM [facility] Reviewed notes from Orthopedics. Assessment & Plan Assessment & Plan (1) Pruritus: Code(s): L29.9 - Pruritus, unspecified Category: Medical Plan: Unknown etiology. Other occurred 1 day after lidocaine injection. Referring to Juan allergy Dr. Evangelista for skin testing. (2) Myofascial pain dysfunction syndrome: Code(s): M79.18 - Myalgia, other site Category: Medical Plan Myofascial pain, bilateral upper trapezius, that feels like it is coming from neck or shoulder. However she does not have signs/symptoms of cervical radiculopathy or myelopathy, with unremarkable cervical spine x-ray. She also does not have signs of rotator cuff injury or impingement syndrome based on exam, and normal x-rays. Wonder if level of stress especially at work is adding to pain and no improvement. Reassured patient and encouraged her to continue physical therapy. Cancelling today's trigger point injection. Assessment and plan discussed with patient, and patient was agreeable. All questions were answered thoroughly. Follow up 2 months. Leah Fang MD, [place] Board Certified, [place] Board of Physical Medicine and Rehabilitation (ABPMR) Board Certified, [place] Board of Electrodiagnostic Medicine (ABEM) Orders: Referrals Allergy & Immunology Referral L29.9 - Pruritus, unspecified Coding Level of Care Code Est Pt Level 4 (62687) Diagnoses Pruritus L29.9 Myofascial pain dysfunction syndrome M79.18
--- OUTSIDE RECORDS SUMMARY | 2024-12-17 09:53 | XMS_ITS | Clinical Summary ---
Author Organization [employer] Address [address] [facility] [address] [place] [address] Care Team Providers Care Policy Loan Calculator Name Role Phone Unavailable Primary Care Provider [...]
--- OUTSIDE RECORDS SUMMARY | 2024-12-17 09:53 | XMS_ITS | Clinical Summary ---
Author Organization [facility] Address [address] [place] [address] Phone Care Team Providers Care Poured Wall Foreman Name Role Phone Pcp, Unknown Primary Care [...] topic Medical Devices Not on file [facility] COMMUNITY CHOICE [facility] SAFETY NET PARTIAL [facility] CHOICE HEALTH SAFETY NET PARTIAL HEALTH SAFETY NET PARTIAL [facility] COMMUNITY CHOICE [facility] PARTIAL [facility] COMMUNITY CHOICE HEALTH SAFETY NET PARTIAL HEALTH SAFETY NET PARTIAL Care Teams Poured Wall Foreman Relationship Specialty Start Date End Date Pcp, Unknown PCP - General 10/02/23 Additional Source Comments The information contained in this document represents components of the legal health record. It is not the complete legal health record.[facility]
--- OUTSIDE RECORDS SUMMARY | 2024-12-17 09:53 | XMS_ITS | Encounter Summary ---
Author Organization [employer] [facility] Address [address] [facility] [address] [place] [address] Care Team Providers Care Dulite Machine Bluer Name Role Phone Unavailable Primary Care Provider [...]
--- OUTSIDE RECORDS SUMMARY | 2024-12-17 09:53 | XMS_ITS | Clinical Summary ---
Author Organization [employer] [facility] Address [address] [place] [address] Care Team Providers Care Biazzi Nitrator Operator Name Role Phone Elly Jean MD [...] age to complete this topic Care Teams Biazzi Nitrator Operator Relationship Specialty Start Date End Date Elly Jean MD [address] [place] [address] PCP - General Internal Medicine 03/28/16
== END 2024-12-17 10:09 | disposition home or self-care (01) ==
PROVIDERS: PCP Nurse Practitioner Family; Visit Provider Physical Medicine & Rehabilitation
DX: L29.9 Pruritus, unspecified (principal); M79.18 Myalgia, other site
CPT/HCPCS: 99213

== ENCOUNTER 2025-01-12 08:01 | Outpatient (RCR) | payer OTHER, SELFPAY ==
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
--- NOTE | 2025-02-22 14:26 | MHC.PT.DC ---
[facility] Office [place] Office [place] Office [address] Mary Anne Alas [address] [phone] F: [phone] F: [phone] F: [phone] F: [phone] Physical Therapy Discharge Report Diagnosis: Strain of muscles, fascia and tendon at neck level Date of Surgery: NA Date of Evaluation: 11/30/24 Date of Discharge: 02/22/25 Treatments to Date: 7 Cancellations to Date: 2 No Shows to Date: 1 Discharge Status: Patient Elected to Stop Discharge Summary: Vania attended 7 PT visits and canceled her last appointment. She has not called back to re- schedule this in over a month. She is therefore being d/c from PT. Electronically signed by: Eliana Kebede PT DPT Please sign and return to therapist. Thank you for your referral.
== END 2025-02-22 14:27 | disposition home or self-care (01) ==
LOC: HO.PT 08:01
PROVIDERS: PCP Nurse Practitioner Family; Visit Provider Physician Assistant
DX: S16.1XXD Strain of muscle, fascia and tendon at neck level, subsequent encounter (principal)
CPT/HCPCS: 97110; 97140; 97161

== ENCOUNTER 2025-02-09 10:44 | Outpatient (AMB) | payer OTHER, SELFPAY ==
--- NOTE | 2025-02-09 10:47 | AM.OFFWIN_ITS ---
Intake Vital Signs 02/09/25 10:51 Height 4 ft 11 in Weight 144 lb 6 oz BMI 29.2 BP 122/70 Blood Pressure Location Lt brachial Position Sitting Respiration 13 Pulse 101 H Pulse Source Pulse Oximeter Temp 97.6 F Temp Source Oral Pulse Oximetry (%) 99 Oxygen Delivery Method Room Air Intake Visit Reasons: Vommiting/sick MASK Intake Note: Patient c/o coughing to the point shes is vomiting, fever, chills, and bodyaches since yesterday. Patient Tobacco Use Status: Never used Tobacco Acid Wash Operator Required: No Allergies Seasonal Allergies Allergy (Intermediate, Verified 02/09/25 10:47) Congestion lidocaine Allergy (Mild, Verified 02/09/25 10:47) itchiness Do you need a note to return to daycare/school/sports/work: Yes PFSH Medical History Cervicalgia Right ankle tendonitis Back pain Surgical History History of tubal ligation Family History Father Medical history unknown Mother Alive and well Maternal Grandmother Lung cancer Social History Household Members: Family Both parents involved: No Caregiver staying overnight: No Housing: House Are you a primary hemodialysis patient care specialist to a significant other at home: No Do you presently have visiting nurse or other home services: No 75 years or older and lives alone: No Alcohol intake: current Alcohol intake frequency: holidays/special occasions only Alcohol type: hard liquor Patient Tobacco Use Status: Never used Tobacco e-Cigarette/Vaping Use: Never Used service: No 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al status: employed 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
[2025-02-09 10:51] VITALS: BP 122/70; PULSE 101; RESP 13; TEMP 36.4; O2SAT 99; BMI 29.2
--- NOTE | 2025-02-09 11:10 | A.OFFPC_ITS ---
Vital Signs 02/09/25 10:51 Height 4 ft 11 in Weight 144 lb 6 oz BMI 29.2 BP 122/70 Blood Pressure Location Lt brachial Position Sitting Respiration 13 Pulse 101 H Pulse Source Pulse Oximeter Temp 97.6 F Temp Source Oral Pulse Oximetry (%) 99 Oxygen Delivery Method Room Air Intake Visit Reasons: Vommiting/sick MASK Allergies Seasonal Allergies Allergy (Intermediate, Verified 02/09/25 11:09) Congestion lidocaine Allergy (Mild, Verified 02/09/25 11:09) itchiness Medication List - Last Reconciled 02/09/25 by Franci Hutson CAMPAIGN SPECIALIST- cetirizine (Zyrtec) 10 mg PO DAILY PRN fluticasone propionate 50 mcg/actuation 2 SPRAY INTRANASALLY DAILY FOR 1 MONTH ADMINISTER INTO EACH NOSTRIL ibuprofen 800 mg PO Q8H PRN lidocaine 5% 1 appl topical TID PRN Tobacco use date assessed: 09/01/24 Dental Screening Dental Screen Date: 07/22/24 HPI HPI Comments History of Present Illness Details History of Present Illness The patient is a 39 year old female presenting with a sick visit. Acute Upper Respiratory Infection: - The patient reports that symptoms bega n on Friday with watery eyes and a light headache. - On Friday, she awoke with a very sore throat, which progressed to a deep cough by the evening that is severe enough to cause vomiting. - The night prior to the visit, she expe rienced significant body pain and was unable to sleep. - She has been managing her symptoms at home by drinking tea. - She has not taken any ibuprofen or Mot rin because she did not have any at home. - Her son has been ill with a similar ba d cough since the previous Friday. Allergic Reaction: - The patient reports developing an lito rgic reaction with itching and bumps approximately a week and a half after receiving a lidocaine injection. - The symptoms typically begin on her fe et and then spread over her body. - She states that a previously prescribe d allergy medicine (cetirizine) was not effective. - She has been taking her son's cetirizi ne 10 mg and reports that it controls her symptoms of itching, which recur if she does not take it every 24 hours. - She received a referral to an allergis t but is still waiting for the specialist's office to call her back to schedule an appointment. Past Medical History - Astigmatism. - Allergic reaction, possibly to lidocai ne, presenting as urticaria. - Gastroenteritis two weeks prior to vis it, characterized by vomiting. Review of Systems - Constitutional: Reports body pain and feeling sick. - Eyes: Reports watery eyes. - ENT: Reports sore throat. - Respiratory: Reports a deep cough. - Gastrointestinal: Reports emesis secon connie to cough. - Musculoskeletal: Reports significant m yalgia. - Integumentary: Reports history of a pr uritic rash with bumps starting on her feet. - Neurological: Reports a light headache and feeling jittery. Physical Exam General: Well developed, well nourished, in no acute distress. Appears stated age. Head: Normocephalic, atraumatic. Eyes: Pupils are equal, round and reactive to light and accommodation. Conjunctivae are clear. Vision grossly normal. Ears: cerumen bilat, making TM visualization challenging, TM intact and clear from what i could see Nose: scant clear drainage, sinus nonTTP Lungs: Clear to auscultation bilaterally. No rales, rhonchi or wheeze noted. Good air flow in all pandey. Hacking cough w/o distress Heart: Regular rhythm, mildly tachycardic. No murmurs, click, rubs or gallops are noted. Psych: Mood and affect appropriate. Medical Decision Making The patient is a 39-year-old female who presented for a sick visit with signs and symptoms of an acute viral upper respiratory infection, including cough, sore throat, myalgias, and headache, which began two days prior. Her clinical presentation, along with her son having similar recent symptoms, is highly suggestive of a viral etiology, which is common in the community at this time. Differential diagnoses include influenza, COVID-19, and RSV, among other viruses. A multiplex swab was offered, but the patient declined, and we agreed that the result would not alter the management plan, which is focuses on supportive care. The plan is to manage symptoms with a prescription for cough suppressant pills, which have been effective for her in the past, along with recommendations for OTC analgesics, and increased fluid intake. She was advised about the signs of a potential secondary bacterial infection and when to return for re-evaluation. Additionally, we addressed her ongoing urticaria, which she associates with a prior lidocaine injection. Since her previously prescribed antihistamine was ineffective and she reports relief with her son's cetirizine 10 mg, I have sent a prescription for cetirizine 10 mg daily to her pharmacy. A work note was provided for the remainder of the week. Plan 1. Urticaria - The patient reports chronic hives whic h she believes started after a lidocaine injection. - A previously prescribed allergy medica tion was ineffective. - She has found relief with her son's ce tirizine 10 mg. - A prescription for cetirizine 10 mg da axel was sent to her preferred pharmacy. - The patient has a pending referral to an australian rules footballer and needs to follow up on scheduling an appointment. 2. Acute Upper Respiratory Infection - The patient's symptoms are consistent with a viral etiology; testing for flu, COVID-19, and RSV was offered but declined as management would remain supportive. - Prescribed cough suppressant pills, to be taken three times a day as needed. - Recommended continued supportive care, including adequate fluid intake and use of Tylenol or Motrin for body aches and fever. - Advised that saltwater gargles or thro at sprays can be used for sore throat relief. - Provided a work note to excuse the pat ient from work through the end of the week. - Instructed to return for follow-up if symptoms worsen or fail to improve after 10 days, due to the risk of a secondary bacterial infection. Patient Instructions - I have sent a prescription for cough p ills to your pharmacy, [facility] in [place]. You can take them up to three times a day as needed. - You can use mwlz-sgc-erbsdsw medicatio ns like Tylenol or Motrin (ibuprofen) to help with body aches or fever. - Make sure to drink plenty of fluids li ke tea and water. - For your sore throat, you can gargle w ith salt water or use a throat spray. - A prescription for cetirizine 10 mg thompson s been sent to your pharmacy for your itching and bumps. Take this once a day. - You have a note to be out of work for the rest of this week. You can return on Friday. - Please come back to the clinic if your cough gets worse, you are still running a fever, or your symptoms do not get better after 10 days. Consent The risks, benefits, and alternatives to diagnostic swabbing for Flu/COVID/RSV were discussed. The patient understood that treatment would be supportive regardless of the result and verbally declined to be swabbed. Patient was informed and verbally consented to the use of an ambient scribe for clinic note documentation during this visit. [facility] Medical History Cervicalgia Right ankle tendonitis Back pain Surgical History History of tubal ligation Family History Father Medical history unknown Mother Alive and well Maternal Grandmother Lung cancer Social History Household Members: Family Both parents involved: No Caregiver staying overnight: No Housing: House Are you a primary director of managed care to a significant other at home: No Do you presently have visiting nurse or other home services: No 75 years or older and lives alone: No Alcohol intake: current Alcohol intake frequency: holidays/special occasions only Alcohol type: hard liquor Patient Tobacco Use Status: Never used Tobacco e-Cigarette/Vaping Use: Never Used service: No 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al status: employed 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: [employer] worker 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al exposures/hazards: No Cognitive needs: No Hearing needs: No Vision needs: No Questionnaire Thrive Questionnaire Date Thrive assessed: 07/15/24 I am a: Patient What is your living situation today?: I have a steady place to live Within the past 12 months, did the food you bought not last and you didn't have the money to get more?: Never true Within the past 12 months, did you worry whether your food would run out before you got money to buy more?: Never true Do you have trouble paying for medicines?: No Do you have trouble getting transportation to medical appointments?: No Do you have trouble paying your heating and electricity bill?: No Do you have trouble taking care of your child, family member or friend?: No Do you have trouble with day-to-day activities such as bathing, preparing meals, shopping, managing finances, etc.?: No Are you currently unemployed and looking for a job?: No Are you interested in more education?: No Please select the resources that you would like help with: None Currently or been in a relationship where the following occur: No concerns reported THRIVE Score: 0 AMBROSIO-7 AMB Questionnaire AMBROSIO-7 Date AMBROSIO - 7 assessed: 07/22/24 Source: Developed by Drs. Fernando Blackmon, Rosalina Galvan, Maurizio Gramajo and colleagues, with an educational alexandru from [employer]. Physical exam (Primary Care) Vital Signs: Last Vital Signs Temp 97.6 F 02/09/25 10:51 Pulse 101 H 02/09/25 10:51 Resp 13 02/09/25 10:51 BP 122/70 02/09/25 10:51 Pulse Ox 99 02/09/25 10:51 Oxygen Delivery Method Room Air 02/09/25 10:51 BMI result Body Mass Index 29.2 Tobacco/Smoking Status: Tobacco use Status Tobacco use date assessed 09/01/24 12/17/24 09:48 Patient Tobacco Use Status Never used Tobacco 12/17/24 09:48 e-Cigarette/Vaping Use Never Used 12/17/24 09:48 Thrive Assessment: Date of Thrive Assessment Date Thrive assessed 07/15/24 12/17/24 09:48 Currently or been in a relationship where the following occur: No concerns reported Coding Level of Care Code Est Pt Level 4 (09736) Add On Problem Visit Only Diagnoses Pruritus L29.9 Viral URI with cough J06.9 Assessment & Plan Assessment & Plan (1) Pruritus: Code(s): L29.9 - Pruritus, unspecified Category: Medical (2) Viral URI with cough: Code(s): J06.9 - Acute upper respiratory infection, unspecified Plan . Medications: New benzonatate 100 mg PO TID PRN 30 caps 1RF cough 10 days Refilled cetirizine (Zyrtec) 10 mg PO DAILY PRN 90 tabs 2RF allergy symptoms
--- OUTSIDE RECORDS SUMMARY | 2025-02-09 13:46 | XMS_ITS | Data Portability ---
Author Organization [facility] ent, PAIN OFFICE Address [address],[facility] [address] [place] [address] Care Team Providers Care Client Relations Representative Name Role Phone MARIA DEL CARMEN CHAVES [...] booked for the same. 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 She needs a crew truck driver on the day of the [...] By Organization Details Last Modified Time 06/07/2014 [id number] She was advised against bed rest lasting longer than four days and to continue activities as tolerated. [email or web address] Not available 06/07/2014 15:07:21 09/05/2014 [id number] She was advised against bed rest lasting longer than four days and to continue activities as tolerated. [email or web address] Not available 09/05/2014 14:48:47 09/19/2014 [id number] She was advised against bed rest lasting longer than four days and to continue activities as tolerated. [email or web address] Not available 09/20/2014 11:06:04 10/17/2014 [id number] She was advised against bed rest lasting longer than four days and to continue activities as tolerated. [email or web address] Not available 10/17/2014 15:51:03 11/02/2014 [id number] She was advised against bed rest lasting longer than four days and to continue activities as tolerated. [email or web address] Not available 11/08/2014 17:23:13 Reason for Referral None Reported. Results Created Date Observation Date Name Description Value Unit Range Abnormal Flag Note LastModifiedBy Organization Detail LastModifiedTime 05/24/19 15 05/22/2014 MRI, lumba r spine No observ ation record ed. [email or web address] [facility] ([facility]) [address] [place], [address], 06/02/2014 14:47:24 Result Notes None recorded. Problems Name Problem SNOMED Code Status Onset Date Resolution Date Notes Provider Name and Address Organization Details Recorded Time Displacement of lumbar intervertebral disc without myelopathy 20011130 Active Morenita cassidy MD [address] , [address], [place], [address], [place] - [facility] 5 17:24:33 Lumbosacral radiculitis [id number] Yamilka cassidy MD [address] , [address], [place], [address], [place] - [facility] 5 17:24:33 Muscle pain 36814996 Active Morenita cassidy MD [address] [facility] , [address], [place], [address], [place] [facility] 5 17:24:33 Piriformis syndrome 411759077 Active Morenita cassidy MD [address] , [address], [place], [address], [place] [facility] 5 17:24:33 Problem Notes None recorded. Procedures Surgical History Date Name Laterality Status Provider Name and Address Organization Details Recorded Time 5 Piriformis injection under fluroscopic guidance. completed Morenita Gallegos MD [address] , [address], [place], [address], [place] [facility] 11/08/2014 17:24:33 5 Piriformis injection under fluroscopic guidance. completed Morenita Gallegos MD [address] , [address], [place], [address], [place] [facility] 09/20/2014 11:08:34 5 Trigger Point Injections under ultrasound guidance completed Morenita Gallegos MD [address] , [address], [place], [address], [place] [facility] 09/05/2014 14:51:05 5 Trigger Point Injections under ultrasound guidance completed Morenita Gallegos MD [address] , [address], [place], [address], [place] [facility] 06/07/2014 [...] Not Available Vitals Date Recorded Oxygen saturation Heart rate Systolic And Diastolic Provider Name and Address Organization Details Last Updated DateTime 06/07/2014 99 % 78 /min 131/85 mm[Hg] Carlotapravin SmithVasquez [place] - [facility] 06/07/2014 14:24:17 Date Recorded Oxygen saturation Heart rate Systolic And Diastolic Provider Name and Address Organization Details Last Updated DateTime 09/05/2014 98 % 83 /min 119/64 mm[Hg] Carlota Smithzier [place] - [facility] 09/05/2014 14:21:14 Date Recorded Oxygen saturation Heart rate Systolic And Diastolic Provider Name and Address Organization Details Last Updated DateTime 09/19/2014 99 % 78 /min 117/79 mm[Hg] Carlota Vasquez [place] - [facility] 09/19/2014 11:14:17 Date Recorded Oxygen saturation Heart rate Systolic And Diastolic Provider Name and Address Organization Details Last Updated DateTime 10/17/2014 99 % 91 /min 118/60 mm[Hg] Carlota Vasquez [place] - [facility] 10/17/2014 15:31:12 Date Recorded Oxygen saturation Heart rate Systolic And Diastolic Provider Name and Address Organization Details Last Updated DateTime 11/02/2014 98 % 76 /min 105/72 mm[Hg] Carlota Smithzier [place] - [facility] 11/02/2014 13:47:40 Social History Question Answer Notes LastModified by Organizat ion Details LastModified Time Tobacco Smoking Status Never Smoker Not Available [employer] 12/10/2019 03:16:10 Which Illicit Or Recreational Drugs Have You Used? No [id number] Information not available 12/10/2019 Education 12 Some College [email or web address] Information not available 05/19/2014 Live Alone Or With Others? With Others , 3 Sons And Daughter [email or web address] Information not available 05/19/2014 Marital Status Informatio n not available 05/19/2014 Sex: Unknown Functional Status Question Answer Note LastModified by Organizat ion Details LastModified Time What is your level of alcohol consumption? 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 Family History Nothing Reported. Medical History Condition Response Anxiety Disorder Y Migrane Y Gynecological HistoryNo gynecological history recorded. Obstetrics History GPAL:G 0 P 0 0 0 0 Past Encounters Encounter ID Performer Location Encounter Start Date Encounter Closed Date Diagnosis/Indication Diagnosis SNOMED-CT Code Diagnosis ICD10 Code Diagnosis IMO Codes Diagnosis Note [id number] Morenita Gallegos MD PAIN OFFICE [address] [place] [address] 05/19/2014 13:49:10 05/20/2014 12:10:41 Displacement of lumbar intervertebral disc without myelopathy 84031131 Lumbosacra l radiculitis 34042666 [id number] Morenita Gallegos MD PAIN OFFICE [address] [place] [address] 06/02/2014 13:32:46 06/02/2014 14:50:17 Displacement of lumbar intervertebral disc without myelopathy 18767292 Lumbosacra l radiculitis 02319820 [id number] Morenita Gallegos MD PAIN OFFICE [address] [place] [address] 06/07/2014 13:58:20 06/07/2014 15:12:34 Muscle pain 03242999 Displaceme nt of lumbar intervertebral disc without myelopathy 04187184 Lumbosacra l radiculitis 33278688 [id number] Morenita Gallegos MD PAIN OFFICE [address] [place] [address] 09/05/2014 14:10:43 09/05/2014 14:51:52 Muscle pain 19582124 Displaceme nt of lumbar intervertebral disc without myelopathy 72219951 Lumbosacra l radiculitis 98956509 [id number] Morenita Gallegos MD [facility] PA[facility] [address] [place] [id number] 09/19/2014 11:05:48 09/20/2014 11:09:21 Muscle pain 20292303 Displaceme nt of lumbar intervertebral disc without myelopathy 27821498 Lumbosacra l radiculitis 00876057 Piriformis syndrome 511240411 [id number] Morenita Gallegos MD [facility] PA[facility] [address] [facility] [place] [address] 10/17/2014 14:56:34 10/17/2014 15:58:26 Muscle pain 63303257 Displaceme nt of lumbar intervertebral disc without myelopathy 51405521 Piriformis syndrome 463905376 Lumbosacra l radiculitis 22070938 [id number] Morenita Gallegos MD [facility] PA[facility] [address] [facility] [place] [id number] 11/02/2014 13:33:44 11/08/2014 17:26:35 Muscle pain 41337625 Displaceme nt of lumbar intervertebral disc without myelopathy 52521761 Piriformis syndrome 515141155 Lumbosacra l radiculitis 26940366 Health Concerns Section Related Observation LastModified by Organization Detai ls LastModified Time None Recorded Concern Status LastModified by Organization Details LastModified Time None Recorded Advance Directives Directive None Recorded Payers Insurance Date Sequence Insurance Name Policy Number Policy Ramsay Covered Member ID Ramsay Member ID Guarantor Name 11/02/2014 2 [facility] Vania Chacon [id number] Vania Guevara 11/02/2014 1 [facility] (MEDICAID HMO) [id number] Vnaia Chacon [id number] Vania Guevara 11/02/2014 2 [facility] ([facility] Vania Chacon [id number] 2 Vania Guevara 03/06/2015 1 [facility] (MEDICAID HMO) [id number] Vania Guevara [id number] Vania Guevara 11/02/2014 2 [facility] (MEDICAID HMO) Vania Chacon [id number] Vania Guevara Notes Date Note Type Note Provider Name and Address Organization Details Recorded Time 06/07/2014 text/html She is here for a trial of trigger point injections in the paraspinal muscles of the lumbar region under ultrasound guidance Morenita Gallegos MD [address] [facility] , [address], [place], [address], [place] [facility] 06/13/2014 09:04:47 [...] MD [address] [facility] , [address], [place], [address], [place] [facility] 09/07/2014 16:08:57 09/19/2014 text/html She is here for a left piriformis muscle injection under fluoroscopic guidance. She reports no pain benefit with last trigger point injection. Morenita Gallegos MD [address] , [address], [place], [address], [place] [facility] 09/26/2014 09:35:42 [...] bowel incontinence. Morenita Gallegos MD [address] , [address], [place], [address], [place] [facility] 10/19/2014 09:02:17 11/02/2014 text/html She is here for a left piriformis muscle injection under fluoroscopic guidance. Morenita Gallegos MD [address] , [address], [place], [address], [place] [facility] 11/09/2014 10:30:25 OBGyn Episode No OBEpisode recorded.
--- OUTSIDE RECORDS SUMMARY | 2025-02-09 13:46 | XMS_ITS | Encounter Summary ---
Author Organization [facility] Address [address] [place] [address] Care Team Providers Care Pomologist Name Role Phone Unavailable Primary Care Provider [...]
--- OUTSIDE RECORDS SUMMARY | 2025-02-09 13:46 | XMS_ITS | Clinical Summary ---
Author Organization [facility] Address [address] [place] [address] Care Team Providers Care Horse Doctor Name Role Phone Elly Jean MD Primary [...] on file Sexual Orientation Not on file Plan of Treatment Health Maintenance Due Date Last Done Comments DTaP,Tdap,and Td Vaccines (1 - Tdap) 2004 Hepatitis B Vaccines (1 of 3 - 19+ 3-dose series) 2004 Cervical Cancer Screening: P ap Smear 2006 HPV Vaccines (1 - 3-dose SCD M series) 2012 Depression Screening 02/25/2024 COVID-19 Vaccine (1 - 2024-2 6 season) 2024 Influenza Vaccine (#1) 2024 RSV [...] age to complete this topic Care Teams Horse Doctor Relationship Specialty Start Date End Date Elly Jean MD [address] [place] [address] PCP - General Internal Medicine 03/28/16
--- OUTSIDE RECORDS SUMMARY | 2025-02-09 13:46 | XMS_ITS | Clinical Summary ---
Author Organization [facility] Address [address] [place] [phone] Phone Care Team Providers Care Spooler Name Role Phone Pcp, Unknown Primary Care [...] topic Medical Devices Not on file [facility]ICE [facility] SAFETY NET PARTIAL [facility] CHOICE HE[facility] SAFETY NET PARTIAL HEALTH SAFETY NET PARTIAL [facility] CHOICE [facility] PARTIAL [facility] COMMUNITY CHOICE HEALTH SAFETY NET PARTIAL HEALTH SAFETY NET PARTIAL Care Teams Spooler Relationship Specialty Start Date End Date Pcp, Unknown PCP - General 10/02/23 Additional Source Comments The information contained in this document represents components of the legal health record. It is not the complete legal health record.[facility]
--- OUTSIDE RECORDS SUMMARY | 2025-02-09 13:47 | XMS_ITS | Clinical Summary ---
Author Organization [employer] Address [address] [facility] [address] [place] [address] Care Team Providers Care Reinsurance Analyst Name Role Phone Unavailable Primary Care Provider [...]
== END 2025-02-09 11:21 | disposition home or self-care (01) ==
LOC: HO.HMCFM 10:45
PROVIDERS: PCP Nurse Practitioner Family; Visit Provider Nurse Practitioner Family
DX: L29.9 Pruritus, unspecified (principal); J06.9 Acute upper respiratory infection, unspecified